=== PATIENT | female | born 1950 | race Hispanic/Latino ===

== ENCOUNTER 2019-01-18 10:51 | Inpatient (IN) | payer MEDICARE, OTHER ==
[~2019-01-18] VITALS: Ht 157.5 cm; Wt 90.4 kg
--- NOTE | 2019-01-18 11:32 | NUR ---
NURSE ATTEMPTED TO STRAIGHT CATH PT AND NOTICED PT HAS PROLAPSED UTERUS; MADE AWARE AND SAW PT HERSELF
[2019-01-18 11:56] LABS: BASOPHILS % 0.1 % (0.0-1.0); HEMATOCRIT 31.7 % (34.2-44.1); HEMOGLOBIN 10.4 g/dL (12.0-16.0); LYMPHOCYTES # (AUTO) 0.8 (1.0-3.2); LYMPHOCYTES % 7.3 % (18.0-39.1); MEAN CORPUSCULAR HEMOGLOBIN 29.7 pg (28-32); MEAN CORPUSCULAR HGB CONC 32.8 g/dL (31-35); MEAN CORPUSCULAR VOLUME 90.6 fL (81-99); MONOCYTES # (AUTO) 0.9 (0.2-0.8); MONOCYTES % 8.3 % (4.4-11.3); NEUTROPHILS # (AUTO) 8.8 (2.1-6.9); NEUTROPHILS % 83.1 % (38.7-80.0); PLATELET COUNT 186 x10e3/uL (140-360); RED CELL DISTRIBUTION WIDTH 14.3 % (11.7-14.4)
[2019-01-18 12:04] LABS: INR 1.27; PROTHROMBIN TIME 16.5 seconds (11.9-14.5)
[2019-01-18 12:11] LABS: ALBUMIN/GLOBULIN RATIO 0.5 (0.8-2.0); ANION GAP 17.3 mmol/L (8-16); CALCIUM 8.3 mg/dL (8.4-10.2); CREATININE, SERUM 3.54 mg/dL (0.57-1.11); POTASSIUM 3.3 mmol/L (3.5-5.1)
--- NOTE | 2019-01-18 13:14 | Diagnostic Imaging Report ---
EXAM: US ABDOMEN COMPLETE DATE: 01/18/2019 12:00 AM INDICATION: Cirrhosis COMPARISON: None TECHNIQUE: Transverse and longitudinal chamberlain scale and color doppler sonographic images of the upper abdomen were obtained. FINDINGS: There is no evidence of fluid or masses seen in the area of clinical concern in the right lower quadrant. LIVER 10.4 cm in the right midclavicular line. Coarse echotexture of the liver with nodular surface contour, no masses. SPLEEN 13.9 cm in maximum diameter. Normal echogenicity, no masses. GALLBLADDER 5 mm echogenic structure along the gallbladder wall without posterior acoustic shadowing, possibly a polyp. No gallbladder wall thickening, distension, stone, or pericholecystic fluid. NEgative reported sonographic Gracia's sign. Gallbladder wall measures 4 mm. BILE DUCTS No intra nor extra-hepatic biliary dilation. Common bile duct measures 4 mm. PANCREAS: Not well visualized due to overlying bowel gas. RIGHT KIDNEY: 11.2 cm Echogenicity: Normal Collecting System: No hydronephrosis Stones: None Cyst/Mass: None LEFT KIDNEY: 9.0 cm Echogenicity: Normal Collecting System: No hydronephrosis Stones: None Cyst/Mass: None VESSELS: Aorta: Visualized portions are within normal size limits Inferior Vena Cava: Visualized portions are normal Main Portal Vein: 1.1 cm, normal size with hepatopetal flow. FREE FLUID: Moderate volume ascites. IMPRESSION: Cirrhotic liver morphology. Moderate volume ascites. Gallbladder wall 5 mm echogenic structure likely represents a polyp. Signed by: Cora Blanc MD on 01/18/2019 1:10 PM
--- NOTE | 2019-01-18 13:30 | Diagnostic Imaging Report ---
EXAM: CT Abdomen and Pelvis WITHOUT intravenous contrast INDICATION: Abdominal pain COMPARISON: Abdominal ultrasound of the same day. TECHNIQUE: Abdomen and pelvis were scanned utilizing a multidetector helical scanner from the lung base to the pubic symphysis without administration of IV contrast. Coronal and sagittal reformations were obtained. IV CONTRAST: None ORAL CONTRAST: Water COMPLICATIONS: None RADIATION DOSE: Total DLP: 794.9 mGy*cm Dose modulation, iterative reconstruction, and/or weight based adjustment of the mA/kV was utilized to reduce the radiation dose to as low as reasonably achievable. FINDINGS: LOWER THORAX: Mild bibasilar dependent subsegmental atelectasis. Coronary artery atherosclerotic calcifications. HEPATOBILIARY: Cirrhotic liver morphology. No focal liver lesions. Hyperdense structure within the gallbladder likely corresponds to the finding on ultrasound of gallbladder wall polyp. No CT evidence of cholecystitis. SPLEEN: No splenomegaly. PANCREAS: No focal masses or ductal dilatation. ADRENALS: No adrenal nodules. KIDNEYS/URETERS: No hydronephrosis, stones, or solid mass lesions. PELVIC ORGANS/BLADDER: Unremarkable. PERITONEUM / RETROPERITONEUM: Moderate volume ascites. No free air. LYMPH NODES: No lymphadenopathy. VESSELS: Scattered atherosclerotic calcifications of the nonaneurysmal abdominal aorta and major branches. Extensive upper abdominal portosystemic varices, most notably with a large splenorenal shunt at the left upper abdomen. GI TRACT: Diverticulosis. No CT evidence of diverticulitis. No abnormal bowel wall thickening or bowel obstruction. BONES AND SOFT TISSUES: No acute osseous injury. No suspicious lytic or blastic lesions. There is diffuse anasarca. IMPRESSION: Hepatic cirrhosis and sequela of portal hypertension including extensive portosystemic varices and moderate volume ascites. Diffuse anasarca. Signed by: Cora Blanc MD on 01/18/2019 1:27 PM
[2019-01-18] MEDS ORDERED: MORPHINE SULFATE INJ 4 MG/ML INJ 1ML IV ONE (14:00)
[2019-01-18] MEDS ORDERED: ONDANSETRON HCL INJ 2MG/ML 2ML 2 MG/ML VIAL IV ONE (14:00)
--- NOTE | 2019-01-18 14:00 | NUR ---
paracentesis performed by dr gomez; nurse stayed in room to monitor pt and switch out bottles; pt states she is starting to feel relief and she is drained of fluids; vs stable throughout process
--- NOTE | 2019-01-18 14:52 | NUR ---
PARACENTESIS OUTPUT APPROX 4350 CC SENT TO LAB
--- OUTSIDE RECORDS SUMMARY | 2019-01-18 15:13 | XMS REPORT ---
Author Author [facility] Address Unknown Phone Unavailable Care Team Providers Care Ems Coordinator Name Role Phone ILAN RAZO Unavailable Unavailable Problems This patient has no known problems. Allergies, Adverse Reactions, Alerts This patient has no known allergies or adverse reactions. Medications This patient has no known medications. Results Test Description Test Time Test Comments Text Results Atomic Results Result Comments CT ABDOMEN/PELVIS WO 2019-01-18 13:20:00 [place] [address] Patient Name: EUSEBIO MARKHAM MR #: [id number] : 1950 Age/Sex: 68/F Req #: [id number] Adm Physician: Ordered by: ILAN RAZO DO Report #: [id number] Location: ER Room/Bed: Procedure: [id number] CT/CT ABDOMEN/PELVIS WO Exam Date: 01/18/19 Exam Time: 1250 REPORT STATUS: Signed EXAM: CT Abdomen and Pelvis WITHOUT intravenous cont rast INDICATION: Abdominal pain COMPARISON: Abdominal ultrasound of the same day. TECHNIQUE: Abdomen and pelvis were scanned utilizing a multidetector helical scanner from the lung base to the pubic symphysis without administration of IV contrast. Coronal and sagittal reformations were obtained. IV CONTRAST: None ORAL CONTRAST: Water COMPLICATIONS: None RADIATION DOSE: Total DLP: 794.9 mGy*cm Dose modulation, iterative reconstruction, and/or weight based adjustment of the mA/kV was utilized to reduce the radiation dose to as low as reasonably achievable. FINDINGS: LOWER THORAX: Mild bibasilar dependent subsegmental atelectasis. Coronary artery atherosclerotic calcifications. HEPATOBILIARY: Cirrhotic liver morphology. No focal liver lesions. Hyperdense structure within the gallbladder likely corresponds to the finding on ultrasound of gallbladder wall polyp. No CT evidence of cholecystitis. SPLEEN: No splenomegaly. PANCREAS: No focal masses or ductal dilatation. ADRENALS: No adrenal nodules. KIDNEYS/URETERS: No hydronephrosis, stones, or solid mass lesions. PELVIC ORGANS/BLADDER: Unremarkable. PERITONEUM / RETROPERITONEUM: Moderate volume ascites. No free air. LYMPH NODES: No lymphadenopathy. VESSELS: Scattered atherosclerotic calcifications of the nonaneurysmal abdominal aorta and major branches. Extensive upper abdominal portosystemic varices, most notably with a large splenorenal shunt at the left upper abdomen. GI TRACT: Diverticulosis. No CT evidence of diverticulitis. No abnormal bowel wall thickening or bowel obstruction. BONES AND SOFT TISSUES: No acute osseous injury. No suspicious lytic or blastic lesions. There is diffuse anasarca. IMPRESSION: Hepatic cirrhosis and sequela of portal hypertension including extensive portosystemic varices and moderate volume ascites. Diffuse anasarca. Signed by: Dang Martinez MD on 01/18/2019 1:27 PM Dictated By: DANG MARTINEZ MD [id number] Transcribed By: LOREE on 01/18/19 1327 COPY TO: ILAN RAZO DO ABDOMEN COMPLETE 2019-01-18 13:06:00 [place] [address] Patient Name: EUSEBIO MARKHAM MR #: [id number] : 1950 Age/Sex: 68/F Req #: [id number] Adm Physician: Ordered by: ILAN RAZO DO Report #: [id number] Location: Room/Bed: Procedure: [id number] US/US ABDOMEN COMPLETE Exam Date: 01/18/19 Exam Time: 1215 REPORT STATUS: Signed EXAM: US ABDOMEN COMPLETE DATE: 01/18/2019 12:00 AM INDICATION: Cirrhosis COMPARISON: None TECHNIQUE: Transverse and longitudinal chamberlain scale and color doppler sonographic images of the upper abdomen were obtained. FINDINGS: There is no evidence of fluid or masses seen in the area of clinical concern in the right lower quadrant. LIVER 10.4 cm in the right midclavicular line. Coarse echotexture of the liver with nodular surface contour, no masses. SPLEEN 13.9 cm in maximum diameter. Normal echogenicity, no masses. GALLBLADDER 5 mm echogenic structure along the gallbladder wall without posterior acoustic shadowing, possibly a polyp. No gallbladder wall thickening, distension, stone, or pericholecystic fluid. NEgative reported sonographic Gracia's sign. Gallbladder wall measures 4 mm. BILE DUCTS No intra nor extra-hepatic biliary dilation. Common bile duct measures 4 mm. PANCREAS: Not well visualized due to overlying bowel gas. RIGHT KIDNEY: 11.2 cm Echogenicity: Normal Collecting System: No hydronephrosis Stones: None Cyst/Mass: None LEFT KIDNEY: 9.0 cm Echogenicity: Normal Collecting System: No hydronephrosis Stones: None Cyst/Mass: None VESSELS: Aorta: Visualized portions are within normal size limits Inferior Vena Cava: Visualized portions are normal Main Portal Vein: 1.1 cm, normal size with hepatopetal flow. FREE FLUID: Moderate volume ascites. IMPRESSION: Cirrhotic liver morphology. Moderate volume ascites. Gallbladder wall 5 mm echogenic structure likely represents a polyp. Signed by: Dang palacios MD on 01/18/2019 1:10 PM Dictated By: DANG MARTINEZ MD 131 Transcribed By: LOREE on 01/18/19 1310 COPY TO: ILAN RAZO DO
--- NOTE | 2019-01-18 15:45 | NUR ---
Received patient via stretcher from ER. Accompanied by daughter. AAOX4 to time, person, place, situation. Respirations even and unlabored. Denies pain. Oriented patient to room. Instructed to use call light for assistance. Voiced understanding. Will continue to monitor
[2019-01-18 16:01] VITALS: BP 153/67
[2019-01-18 16:19] LABS: RBC,BODY FLUID 128 cells/uL; WBC,BODY FLUID 70 cells/uL
[2019-01-18 16:30] VITALS: BP 153/67
[2019-01-18 16:40] LABS: AMYLASE,BODY FLUID 18
[2019-01-18] MEDS ORDERED: RAYALDEE30 MCG PO (16:58)
[2019-01-18] MEDS ORDERED: PREDNISONE20 MG PO (16:58)
[2019-01-18] MEDS ORDERED: LEXAPRO10 MG PO (16:58)
[2019-01-18] MEDS ORDERED: POTASSIUM CHLO20 ME1 PO (16:58)
[2019-01-18] MEDS ORDERED: GABAPENTIN300 MG PO (16:58)
[2019-01-18] MEDS ORDERED: XIFAXAN550 MG PO (16:58)
[2019-01-18] MEDS ORDERED: VITAMIN D31000 UNIT PO (16:58)
[2019-01-18] MEDS ORDERED: FOSAMAX70 MG PO (16:58)
[2019-01-18] MEDS ORDERED: BROMFED PO (16:58)
[2019-01-18] MEDS ORDERED: SPIRONOLACTONE25 MG PO (16:58)
[2019-01-18] MEDS ORDERED: FUROSEMIDE40 MG PO (16:58)
[2019-01-18] MEDS ORDERED: AUGMENTIN 875-1 EACH PO (16:58)
[2019-01-18] MEDS ORDERED: LISINOPRIL10 MG PO (16:58)
[2019-01-18] MEDS ORDERED: DESLORATADINE5 M1 PO (16:58)
[2019-01-18] MEDS ORDERED: verapamil PO (16:58)
[2019-01-18] MEDS ORDERED: PROMETHAZINE 12.5MG/ NACL 0.9% 12.5 MG/50 ML BAG IV PRN (17:15)
[2019-01-18 17:22] LABS: LYMPHOCYTES,BODY FLUID 22 %; MONO/MACROPHG,BODY FLUID 2 %; NEUTROPHILS,BODY FLUID 3 %
[2019-01-18 17:29] LABS: BODY FLUID APPEARANCE SL.CLOUDY; BODY FLUID COLOR YELLOW; BODY FLUID TYPE PERITONEAL; OTHER CELLS,BODY FLUID 73 %
[2019-01-18] MEDS ORDERED: AMOXICILLIN/CLAVULANATE K 875 MG TAB PO SCH (17:30)
[2019-01-18] MEDS ORDERED: SODIUM CHLORIDE 0.9% 250ML 250 ML ONE (17:34)
[2019-01-18] MEDS: ALPRAZOLAM 0.25 MG TAB PO PRN (17:51)
[2019-01-18] MEDS: PROMETHAZINE 12.5MG/ NACL 0.9% 50 ML IV PRN (17:51)
[2019-01-18] MEDS: IBUPROFEN 400 MG TAB PO PRN (17:51)
[2019-01-18] MEDS: BROMFED PO SCH ×2 (17:52→20:29)
--- NOTE | 2019-01-18 19:20 | NUR ---
Report given to oncoming nurse of patient's status. Resting in bed. No s/s of acute distress noted. Family at bedside. Side rails upx2, call light within reach.
[2019-01-18 20:00] VITALS: BP 140/64
[2019-01-18] MEDS ORDERED: PNEUMOCOCCAL VACCINE POLYVALENT 23 MCG/0.5 ML VIAL IM SCH (20:00)
[2019-01-18 21:00] VITALS: BP 140/64
[2019-01-18] MEDS: GABAPENTIN 300 MG CAP PO SCH (21:00)
[2019-01-19] VITALS (7 sets, daily range): BP systolic 96–129; BP diastolic 50–60
[2019-01-19] MEDS: IBUPROFEN 400 MG TAB PO PRN (05:11)
[2019-01-19] MEDS: PROMETHAZINE 12.5MG/ NACL 0.9% 50 ML IV PRN ×2 (05:42→16:51)
--- NOTE | 2019-01-19 07:07 | NUR ---
pt alert resp even and unlabored a this time no distress noted, pt able to make needs known , family member at bedside. call light in reach, will cont to monitor.
[2019-01-19] MEDS ORDERED: SPIRONOLACTONE 25 MG TAB PO SCH (09:00)
[2019-01-19] MEDS: BROMFED PO SCH ×4 (09:00→21:00)
[2019-01-19] MEDS: CHOLECALCIFEROL 1,000 UNIT TAB PO SCH (09:00)
[2019-01-19] MEDS: VERAPAMIL HCL 120 MG TABSR PO SCH (09:00)
[2019-01-19] MEDS: POTASSIUM CHLORIDE 20 MEQ TAB CR PO SCH (09:00)
[2019-01-19] MEDS ORDERED: NON-FORMULARY MEDICATION (Desloratadine 5 MG) PO SCH (09:00)
[2019-01-19] MEDS: ESCITALOPRAM OXALATE 10 MG TAB PO SCH (09:00)
[2019-01-19] MEDS ORDERED: LISINOPRIL 10 MG TAB PO SCH (09:00)
[2019-01-19] MEDS ORDERED: VERAPAMIL 300 MG PO SCH (09:00)
[2019-01-19] MEDS: CALCIFEDIOL 30 MCG PO SCH (09:00)
[2019-01-19] MEDS: VERAPAMIL HCL 180 MG TBER PO SCH (09:00)
[2019-01-19] MEDS ORDERED: FUROSEMIDE 40 MG TAB PO SCH (09:00)
[2019-01-19] MEDS: LORATADINE 10 MG TAB PO SCH (09:00)
[2019-01-19] MEDS: RIFAXIMIN 550 MG TABLET PO SCH (09:00)
[2019-01-19] MEDS ORDERED: CHOLECALCIFEROL 1000 UNIT PO SCH (09:00)
[2019-01-19] MEDS: PREDNISONE 20 MG TAB PO SCH (09:00)
[2019-01-19] MEDS: HYDROMORPHONE 1MG/1ML INJ IV PRN ×2 (09:44→17:38)
[2019-01-19] MEDS: ONDANSETRON HCL INJ 2MG/ML 2ML 2 MG/ML VIAL IV PRN ×2 (09:44→17:38)
--- NOTE | 2019-01-19 10:05 | NUR ---
H&P cc: ascites needing drainage HPI: 68yoF, PCP , GI , with cirrhosis, now for drainage of ascites; underwent procedure, now recovering; Pt having abdominal pain and intractable N/V. PMH: cirrhosis, ascites, CKD4? due to DM, DM PShX: appendectomy allergies; see emr FH/SH; ; no cigs meds; see MAR ROS; no f/c/s/MATTHEWS/cp/sob/back pain/skin rash/diarrhea v/s revd PE tired appearing anicteric ns1s2 mod bs soft nd; mildly tender abdomen trace leg edema skin dry flat affect a&0x3; mina labs/meds; revd A/P: 68yoF Ascites Cirrhosis ESRD Intractable N/V PLAN s/p paracentesis IV abx prophylactically Antiemetics SCD D/c planning Leo Valera MD, PhD.
[2019-01-19] MEDS ORDERED: ULTRAM50 MG PO (10:08)
[2019-01-19] MEDS: CEFTRIAXONE SOD 1 GM/NS 50 ML 50 ML IV SCH (11:30)
--- NOTE | 2019-01-19 13:52 | Consultation ---
DATE OF CONSULTATION: 01/19/2019 Urology Consultation REASON FOR CONSULTATION: Prolapse. HISTORY OF PRESENT ILLNESS: Radha Guerrier is a 68-year-old woman with both stress and urge type urinary incontinence. She has never seen a urologist. The patient is admitted with nausea and vomiting, was found to have prolapse, urological consultation was sought. Prolapse was noted when an order to place a Claudio catheter was attempted to be performed and it sounds like a Claudio catheterization was not even attempted due to the panic from the prolapse. The patient has noted this prolapse for some time. The patient denies hematuria, current dysuria as well as history of urolithiasis. She has been prescribed antibiotic and [id number] Azo-Standard for recent urinary tract infection. PAST MEDICAL AND SURGICAL HISTORY: 1. Cirrhosis of unclear etiology, but possibly due to diabetic medications. 2. Status post appendectomy. 3. 2, para 2, by spontaneous vaginal delivery. 4. Diabetes mellitus. 5. Ascites. 6. Obesity. ALLERGIES: SHELLFISH DERIVED PRODUCTS. CURRENT MEDICATIONS: Please refer to the MAR. SOCIAL HISTORY: The patient denies smoking, ethanol, and drug use. She has supportive daughter at the bedside. 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 FAMILY HISTORY: Noncontributory to the active urological problems. REVIEW OF SYSTEMS: Discussed as above in history of present illness, past medical history, otherwise negative for all systems. PHYSICAL EXAMINATION: GENERAL: Very pleasant 68-year-old woman lying in bed, no apparent distress. She is with intermittent nausea and vomiting. The patient is afebrile. VITAL SIGNS: Currently stable. ABDOMEN: Soft. It is distended with ascites. It is not tender and is obese. GENITOURINARY: There is a grade 4 rectocele. There is a grade 2 cystocele. There is urethral hypermobility. There is evidence of uterine prolapse and there was atrophic (senile) vaginitis. For the remaining physical examination systems please refer to the admission history and physical in the chart and the ERT sheet. LABORATORY STUDIES: Ascites fluid is pending for culture. The patient's white blood cell count is 10,610, hemoglobin 10.4, platelets of 186,000. The patient's creatinine is elevated at 3.54. Her calcium is low at 8.3. Lactic acid is elevated 2.2. Potassium is low at 3.3. No urinalysis is done. ASSESSMENT: 1. Mixed type urinary incontinence. 2. Urinary tract infection by recent history. 3. Obesity. 4. Nausea and vomiting. 5. Grade 4 rectocele. 6. Grade 2 cystocele. 7. Urethral hypermobility. 8. Uterine prolapse. 9. Vaginal wall atrophy. 10. Anemia. 11. Presumably chronic renal insufficiency with possible acute exacerbation. 12. Hypokalemia. 13. Hypocalcemia. PLAN: 1. I defer the electrolyte abnormalities to the remote computer terminal operator consulted. 2. Defer the hematological abnormalities to the primary physician. 3. I instructed the patient's nurse, who was present at the examination that she may proceed with placing a Claudio catheter. There was not a problem with just pushing the vaginal wall in, in order to obtain a Claudio catheterization. 4. Once the patient's Claudio is in, the urinalysis and the urine culture can be obtained. 5. Gynecological consultation is required to manage the patient's rectocele and prolapse. The cystocele is relatively minor and may not need to be repaired at this time. 6. We can workup the patient's urinary incontinence as an outpatient. Thank you much for involving us in the care of your patient. We will be happy to follow her along with you as well as an outpatient. Shashi Fleming MD [place]/MODL /[id number] cc: Praveen Ahuja MD
--- NOTE | 2019-01-19 14:43 | Consultation ---
DATE OF CONSULTATION: 01/19/2019 Nephrology Consultation REASON FOR CONSULTATION: Acute on chronic kidney injury. HISTORY OF PRESENT ILLNESS: Radha Guerrier is a 68-year-old woman, who was admitted last night with increasing abdominal ascites causing pain and perhaps difficulty breathing. She did undergo peritoneal tap this morning with removal of 4 L with some symptomatic relief. Her admission labs showed elevated creatinine of 3.5, compared to 1.7 in September this year. She is known to have chronic kidney disease, perhaps related to her longstanding type 2 diabetes mellitus and hypertension. She has been followed intermittently by lease analyst, including a visit with Dr. Caldwell earlier this week. At the time of my interview, the patient is feeling better since the peritoneal tap. Denies any shortness of breath, but does admit to some ongoing nausea. Denies vomiting or diarrhea. Abdominal pain from the ascites is better. She also has chronic leg edema and is on diuretics for it. She had been taking some NSAIDs in the past, but denies taking it for the last month, mainly out of concern for her liver. She has seen the gastroenterologists, who described her cirrhosis as cryptogenic. PAST MEDICAL HISTORY: As above. SOCIAL HISTORY: No alcohol or tobacco use. CURRENT MEDICATIONS: Reviewed in MAY. Notably, she was on Aldactone, prednisone, Lasix and ibuprofen p.r.n. Also, on verapamil and lisinopril. REVIEW OF SYSTEMS: Negative, except as per HPI above. PHYSICAL EXAMINATION: GENERAL: The patient is sitting up in bed eating lunch at this time. VITAL SIGNS: Blood pressure 97/50, pulse 85 per minute. She is afebrile. SKIN: Normal turgor. HEENT: Normocephalic, atraumatic head. Oral mucosa normal. No jaundice appreciated. NECK: Supple without jugular venous distention. CHEST: Auscultation reveals good breath sounds bilaterally without wheezing or crepitations. CARDIOVASCULAR: S1, S2 without murmur, rub, or gallop. ABDOMEN: Soft, distended with ascites but nontender. EXTREMITIES: Both lower legs show 2 to 3+ pitting edema. NEUROLOGIC: Alert and oriented x3. No obvious focal deficits. LABORATORY DATA: Serum chemistries from last night show a sodium of 140, potassium 3.3, chloride 108, bicarb 18, BUN 50, creatinine 3.5, glucose 132, lactic acid 2.2, calcium total 8.3 with a serum albumin of 2, globulin 4, hemoglobin 10.4, white count 10.6, normal platelet count. IMPRESSION: 1. Acute kidney injury, probably related to worsening of ascites and diuretic use. Possible implication of recent use of NSAIDs. 2. Chronic kidney disease, described at stage 3 and related to diabetic nephropathy since daughter describes her having had proteinuria. 3. Hypertension by history, currently blood pressure on the low side with hypo. 4. Hypoalbuminemia, secondary to liver disease. 5. Anemia, secondary to chronic kidney disease. RECOMMENDATIONS: Given the apparent worsening in her renal function, I have discontinued ibuprofen. Also, to preserve intravascular volume, we will hold diuretics until renal function stabilizes. We will also hold lisinopril. Avoid all known nephrotoxins, specially NSAIDs, aminoglycoside antibiotics, and IV iodinated contrast as possible. Trend renal function daily. Hypokalemia has already been replaced by mouth. Her ultrasound was done yesterday and shows no hydronephrosis. I will order urinalysis and protein quantification. Thank you very much for this consultation. We will follow with you and recommend as needed. MD HOMER Mcbride/DAIJA /[id number]
--- NOTE | 2019-01-19 14:43 | NUR ---
ortega placed pt tolerated well, urine light michelle, no odor, 120, cc/ of urine out.
--- NOTE | 2019-01-19 14:54 | NUR ---
ua sent to lab.
--- NOTE | 2019-01-19 15:11 | NUR ---
Nutrition Screen Note RD Recommendation for Physician: Continue diet as ordered Plan of Care: RD following, monitoring for tolerance and adequacy Nutrition reason for involvement: Nutrition Risk Trigger - MST - ascites, liver cirrhosis Primary Diagnose(s): Ascites, liver cirrhosis PMH: Liver cirrhosis, HTN, T2DM, CKD stage 3, Anemia, Ht:62.5 in Wt:196lb BMI:35.3 kg/m2 IBW:112.5lb +/-10% RD Assessment: (01/19/2019) Chart reviewed. Labs and meds reviewed. Initial encounter with patient. Pt only able to eat small meals due to ascites. Pt with vomiting after she eats too much. Pt denies any difficulty chewing or swallowing. Current Diet: Cardiac Malnutrition Evaluation (01/19/2019) The patient does not meet criteria for a specified degree of malnutrition at this time. Will re-evaluate at follow-up as appropriate. Diet Education Needs Assessment: Diet education indicated, Learner(s): Pt, daughter Barriers: None Cultural/Language Modifications: none Readiness: Willing Method: Verbal Topics: Small frequent meals Understanding/Compliance: Expect compliance Nutrition Care Level: Low Signed: Hardy Gil RD, LD, [facility]
[2019-01-19 15:22] LABS: BILIRUBIN,URINE NEGATIVE (NEGATIVE); COLOR,URINE YELLOW (YELLOW); KETONES,URINE NEGATIVE (NEGATIVE); LEUKOCYTE ESTERASE ,URINE NEGATIVE (NEGATIVE); NITRITE,URINE NEGATIVE (NEGATIVE); PROTEIN,URINE DIPSTICK 2+ (NEGATIVE); URINE UROBILINOGEN 0.2 mg/dL (0.2 - 1)
[2019-01-19 15:23] LABS: CLARITY,URINE SL CLOUDY (CLEAR)
[2019-01-19 15:30] LABS: AMORPHOUS SEDIMENT,URINE FEW (FEW); BACTERIA,URINE FEW /HPF; EPITHELIAL CELLS,URINE FEW /LPF; MUCUS,URINE FEW (RARE)
[2019-01-19 17:35] LABS: CREATININE,URINE RANDOM 145.58 mg/dL (47-110)
[2019-01-19 18:28] LABS: TOTAL PROTEIN, URINE 341.9 mg/dL (1-14)
--- NOTE | 2019-01-19 18:39 | NUR ---
report given to oncoming nurse, pt transferred to room 104.
--- NOTE | 2019-01-19 18:40 | NUR ---
PT ARRIVED VIA WC, WITH STANDBY ASSIST OF 2 PEOPLE, PT STOOD AND TRANSFERRED TO BED, 2L NC IN PLACE, TELE IN PLACE, ORIENTED TO ROOM AND CALL LIGHT SYSTEM, CALL LIGHT WITHIN REACH, FAMILY AT SIDE
--- NOTE | 2019-01-19 19:00 | NUR ---
RECEIVED PATIENT IN BEDSIDE REPORT. PATIENT RESTING IN BED AT THIS TIME. A&OX3. O2 @ 2L VIA NC. BAKER DRAINING CLEAR YELLOW URINE TO GRAVITY. NO PAIN REPORTED. NO S&S OF DISTRESS NOTED. BED LOCKED IN LOWEST POSITION, SIDE RAILS UPX2, CALL LIGHT IN REACH.
[2019-01-19] MEDS: GABAPENTIN 300 MG CAP PO SCH (21:00)
[2019-01-20] VITALS (8 sets, daily range): BP systolic 90–105; BP diastolic 48–60
[2019-01-20 06:19] LABS: ANION GAP 15.1 mmol/L (8-16); CALCIUM 7.8 mg/dL (8.4-10.2); CREATININE, SERUM 4.57 mg/dL (0.57-1.11); POTASSIUM 4.1 mmol/L (3.5-5.1)
--- NOTE | 2019-01-20 07:30 | NUR ---
Received patient this morning, a/ox3, in bed and call light within reach, no distress, will monitor.
--- NOTE | 2019-01-20 07:59 | NUR ---
IM- progress note O/N no events ROS; no f/c/s/MATTHEWS/cp/sob/back pain/skin rash/diarrhea v/s revd PE tired appearing anicteric ns1s2 mod bs soft nd; mildly tender abdomen trace leg edema skin dry flat affect a&0x3; mina labs/meds; revd A/P: 68yoF Ascites Cirrhosis ESRD Intractable N/V PLAN s/p paracentesis IV abx prophylactically Antiemetics SCD D/c planning CKD3 due to DM2; now with MELITA; Obesity BMI 35.3. check hba1c/lipids. Leo Valera MD, PhD.
[2019-01-20] MEDS: CALCIFEDIOL 30 MCG PO SCH (08:59)
[2019-01-20] MEDS: VERAPAMIL HCL 180 MG TBER PO SCH (09:00)
[2019-01-20] MEDS: BROMFED PO SCH ×4 (09:00→21:00)
[2019-01-20] MEDS: RIFAXIMIN 550 MG TABLET PO SCH (09:01)
[2019-01-20] MEDS: LORATADINE 10 MG TAB PO SCH (09:01)
[2019-01-20] MEDS: POTASSIUM CHLORIDE 20 MEQ TAB CR PO SCH (09:01)
[2019-01-20] MEDS: ESCITALOPRAM OXALATE 10 MG TAB PO SCH (09:01)
[2019-01-20] MEDS: PREDNISONE 20 MG TAB PO SCH (09:01)
[2019-01-20] MEDS: CHOLECALCIFEROL 1,000 UNIT TAB PO SCH (09:01)
[2019-01-20] MEDS: VERAPAMIL HCL 120 MG TABSR PO SCH (09:02)
[2019-01-20] MEDS ORDERED: SODIUM CHLORIDE 0.9% 250ML 250 ML ONE (10:59)
[2019-01-20] MEDS: CEFTRIAXONE SOD 1 GM/NS 50 ML 50 ML IV SCH (11:05)
--- NOTE | 2019-01-20 14:15 | NUR ---
Patient's daughter questioning why patient is DNR, orders were put in during admission by ER physician and patient cannot remember is she said she wanted to be DNR or not but that she wished to be DNR but her is upset. Dr. Valera notified of patient's wishes and no response yet.
--- NOTE | 2019-01-20 15:44 | NUR ---
Patient OOB and ambulated in the room, rounds by Dr. Fleming, Claudio in place with no urine output, patient in kidney failure with GFR 9 and Creatinine>4, nephrology on the case and following, reading of bladder scan of 300cc could be a false reading due to abdominal fluid related to ascites. Report given to Kristel at this time.
--- NOTE | 2019-01-20 15:54 | NUR ---
Orders per Dr. Valera to D/C DNAR status and make patient full code
[2019-01-20] MEDS ORDERED: ALBUMIN 25% 25GM 100ML 0.25 GM/ML BTL IV SCH (17:00)
[2019-01-20] MEDS ORDERED: ALBUMIN 25% 25GM 100ML 0.25 GM/ML BTL IV ONE (17:30)
--- NOTE | 2019-01-20 19:00 | NUR ---
Received report from previous nurse. Call light within reach. Patient in bed. Daughter and granddaughter at bedside.
[2019-01-20] MEDS: FUROSEMIDE INJ 10 MG/ML 4 ML VIAL IV SCH (20:40)
[2019-01-20] MEDS: GABAPENTIN 300 MG CAP PO SCH (20:40)
[2019-01-20] MEDS: OCTREOTIDE ACETATE 0.1 MG/ML 100MCG AMP SQ SCH (20:40)
--- NOTE | 2019-01-20 22:25 | NUR ---
Called Dr. Caldwell office and talked to Dr. Manuel because the patient has only 5 cc in Ortega bag after a hour of albumin and 40 mg Lasix. Also, mentioned to the doctor that she is now a full code. Dr. Manuel said to call the urologist and give 80 mg lasix IV now, ortega might not be in the right spot, and she can have the full feeling because of the ascites
[2019-01-20] MEDS ORDERED: FUROSEMIDE INJ 10 MG/ML 4 ML VIAL IV ONE (22:30)
--- NOTE | 2019-01-20 23:10 | NUR ---
Called Dr. Fleming's office at [address] Manuel said to call the urologist about the patient not having any urine in the Claudio and the bladder scan showed [address] Fleming called back at 2310 and he said to irrigate and aspirate the Claudio and see if anything comes out. Dr. Fleming also said to do a CT abdomen/pelvis without contrast to rule out hydronephrosis. If it is not hydronephrosis, he said then it is Renal.
[2019-01-21] VITALS (14 sets, daily range): BP systolic 95–127; BP diastolic 44–61
[2019-01-21 00:23] LABS: HEMATOCRIT 31.6 % (34.2-44.1); HEMOGLOBIN 10.4 g/dL (12.0-16.0); LYMPHOCYTES # (AUTO) 0.4 (1.0-3.2); LYMPHOCYTES % 3.5 % (18.0-39.1); MEAN CORPUSCULAR HEMOGLOBIN 29.5 pg (28-32); MEAN CORPUSCULAR HGB CONC 32.9 g/dL (31-35); MEAN CORPUSCULAR VOLUME 89.8 fL (81-99); MONOCYTES # (AUTO) 0.5 (0.2-0.8); NEUTROPHILS # (AUTO) 10.3 (2.1-6.9); PLATELET COUNT 116 x10e3/uL (140-360); RED BLOOD COUNT 3.52 x10e6/uL (3.6-5.1); RED CELL DISTRIBUTION WIDTH 14.5 % (11.7-14.4)
[2019-01-21 00:37] LABS: ALBUMIN 1.7 g/dL (3.5-5.0); ALBUMIN/GLOBULIN RATIO 0.6 (0.8-2.0); ANION GAP 17.5 mmol/L (8-16); CALCIUM 8.2 mg/dL (8.4-10.2); CREATININE, SERUM 5.34 mg/dL (0.57-1.11); MAGNESIUM 1.6 MG/DL (1.3-2.1); POTASSIUM 4.5 mmol/L (3.5-5.1)
--- NOTE | 2019-01-21 01:30 | NUR ---
Patient left via stretcher for CT of abdomen/pelvis without contrast.
--- NOTE | 2019-01-21 01:55 | NUR ---
Patient arrived back from CT on a stretcher
--- NOTE | 2019-01-21 02:50 | Diagnostic Imaging Report ---
EXAM: CT Abdomen and Pelvis WITHOUT intravenous contrast INDICATION: Low urine output. COMPARISON: CT abdomen/pelvis 01/18/2019. TECHNIQUE: Abdomen and pelvis were scanned utilizing a multidetector helical scanner from the lung base to the pubic symphysis without administration of IV contrast. Lack of IV contrast limits evaluation of visceral and vascular structures. Coronal and sagittal reformations were obtained. IV CONTRAST: None ORAL CONTRAST: None COMPLICATIONS: None RADIATION DOSE: Total DLP: 769 mGy*cm Dose modulation, iterative reconstruction, and/or weight based adjustment of the mA/kV was utilized to reduce the radiation dose to as low as reasonably achievable. FINDINGS: LOWER THORAX: Linear and patchy subsegmental atelectasis at the lung bases. Coronary artery atherosclerotic calcifications. HEPATOBILIARY: Cirrhotic liver morphology. No evidence of focal liver lesions. Hyperdense structure within the gallbladder likely corresponds to the finding on ultrasound of gallbladder wall polyp. No CT evidence of cholecystitis. SPLEEN: No splenomegaly. PANCREAS: No evidence of focal masses or ductal dilatation. ADRENALS: No adrenal nodules. KIDNEYS/URETERS: No hydronephrosis, stones, or solid mass lesions. A 0.4 cm hyperdense lesion in the left inferior pole is too small to characterize, but may represent hemorrhagic cyst. PELVIC ORGANS/BLADDER: Mostly decompressed. Claudio catheter is present within the bladder with some intraluminal air. PERITONEUM / RETROPERITONEUM: Moderate volume ascites. No free air. LYMPH NODES: No lymphadenopathy. VESSELS: Scattered atherosclerotic calcifications of the nonaneurysmal abdominal aorta and major branches. Again noted are extensive upper abdominal portosystemic varices, with a large splenorenal shunt. GI TRACT: Diverticulosis without CT evidence of diverticulitis. Mildly thick-walled jejunal loops may be secondary to underlying cirrhosis. No evidence of bowel obstruction. BONES AND SOFT TISSUES: No acute osseous injury. No suspicious lytic or blastic lesions. There is diffuse anasarca. IMPRESSION: No evidence of hydronephrosis as clinically queried. The bladder is mostly decompressed with a Claudio catheter in place. Hepatic cirrhosis and sequela of portal hypertension including extensive portosystemic varices and moderate volume ascites. Diffuse anasarca. Signed by: Dr. Lc Franz MD on 01/21/2019 2:46 AM
--- NOTE | 2019-01-21 03:20 | NUR ---
Called and talked to Dr. Manuel about the results of CT of abdomen/pelvis without contrast, 80 mg of Lasix was given, and that Dr. Fleming said to irrigate and aspirate and do the CT of abdomen/pelvis and if the results show no hydronephrosis then it is renal. Mentioned to Dr. Manuel that when we irrigated and aspirated as told, we only aspirated what was irrigated. Dr. Manuel was also told the lab results (potassium, BUN, and creatinine) of the patient. Dr. Manuel said the patient would need dialysis and I told the Dr she is not a dialysis patient. Dr. Manuel said Dr. Caldwell will see the patient today and decide what to do.
[2019-01-21 05:20] LABS: HEMATOCRIT 27.9 % (34.2-44.1); HEMOGLOBIN 9.2 g/dL (12.0-16.0); LYMPHOCYTES # (AUTO) 0.4 (1.0-3.2); MEAN CORPUSCULAR HEMOGLOBIN 29.6 pg (28-32); MEAN CORPUSCULAR VOLUME 89.7 fL (81-99); MONOCYTES # (AUTO) 0.5 (0.2-0.8); MONOCYTES % 5.2 % (4.4-11.3); NEUTROPHILS # (AUTO) 9.5 (2.1-6.9); NEUTROPHILS % 90.2 % (38.7-80.0); PLATELET COUNT 103 x10e3/uL (140-360); RED BLOOD COUNT 3.11 x10e6/uL (3.6-5.1); RED CELL DISTRIBUTION WIDTH 14.6 % (11.7-14.4)
[2019-01-21 05:46] LABS: ALBUMIN 1.4 g/dL (3.5-5.0); ALBUMIN/GLOBULIN RATIO 0.6 (0.8-2.0); ANION GAP 14.5 mmol/L (8-16); CALCIUM 7.9 mg/dL (8.4-10.2); CREATININE, SERUM 5.31 mg/dL (0.57-1.11); POTASSIUM 4.5 mmol/L (3.5-5.1)
--- NOTE | 2019-01-21 06:56 | NUR ---
Received patient lying in bed with eyes closed. Respiration even and unlabored without SOB. Call light in reach.
--- NOTE | 2019-01-21 07:18 | NUR ---
GAVE REPORT TO CANDIDA DEL REAL. CALL LIGHT WITHIN REACH. PATIENT IN BED Addendum: 01/21/19 at 0719 by Concepcion Chacko RN PATIENT ASLEEP IN BED
[2019-01-21] MEDS: FUROSEMIDE INJ 10 MG/ML 4 ML VIAL IV SCH (08:13)
[2019-01-21] MEDS: BROMFED PO SCH ×4 (08:14→21:02)
[2019-01-21] MEDS: CALCIFEDIOL 30 MCG PO SCH (08:14)
[2019-01-21] MEDS: RIFAXIMIN 550 MG TABLET PO SCH (08:15)
[2019-01-21] MEDS: POTASSIUM CHLORIDE 20 MEQ TAB CR PO SCH (08:15)
[2019-01-21] MEDS: CHOLECALCIFEROL 1,000 UNIT TAB PO SCH (08:15)
[2019-01-21] MEDS: OCTREOTIDE ACETATE 0.1 MG/ML 100MCG AMP SQ SCH ×3 (08:15→21:00)
[2019-01-21] MEDS: ESCITALOPRAM OXALATE 10 MG TAB PO SCH (08:15)
[2019-01-21] MEDS: PREDNISONE 20 MG TAB PO SCH (08:15)
[2019-01-21] MEDS: LORATADINE 10 MG TAB PO SCH (08:42)
[2019-01-21] MEDS: MIDODRINE 2.5 MG TAB PO SCH ×4 (08:42→15:57)
[2019-01-21] MEDS ORDERED: METHYLPREDNISOLONE SOD SUCC 1,000 MG/8 ML VIAL IV SCH (09:45)
--- NOTE | 2019-01-21 10:11 | NUR ---
Notified [facility] about the scheduled HD today for the patient.
--- NOTE | 2019-01-21 10:33 | Progress Note ---
DATE: 01/21/2019 Renal Progress Note SUBJECTIVE: The patient is followed for acute kidney injury on chronic kidney disease stage 3, the patient has had decompensation over the last several days. She was recently seen in clinic earlier last week, where she had anasarca. She was asked to take increased dose of Lasix as well as spironolactone for her increased lower extremity edema. She also did have proteinuria, although in the hospital here in [facility], it is in nephrotic range. Although with a profoundly low albumin of 1.4 one would be concerned about nephrotic range proteinuria, nephrotic syndrome. The patient also has hepatic vascular congestion as well as ascites and signs of liver disease. Unclear cause for liver disease. Liver function tests after this morning are within range. The patient continues to have worsening kidney function. Creatinine is slightly better today, but it is quite a bit above her baseline at 5.3. The patient also has been albeit anuric. The patient's blood pressure is in the high 90s mmHg systolic BP. Over the weekend, she was started on subcu octreotide, midodrine, and IV albumin infusions. Currently, has at least 3 to 4+ pitting edema over the lower extremities. She has profound ascites. She is not overtly short of breath. Case has been discussed with her daughter as well at bedside. OBJECTIVE: VITAL SIGNS: Currently, last blood pressure 95/48, 95% O2 sats on room air, 87 pulse, and 16 respirations. LUNGS: Clear to auscultation bilaterally. CARDIOVASCULAR: S1, S2. No rub. ABDOMEN: Soft, ascitic, positive bowel sounds. Difficult to assess organomegaly. EXTREMITIES: Evidence of 3 to 4+ pitting edema of lower extremities. LABORATORY: Workup today H and H are 9.7 and 27.9, white count of 10.5, and platelet count of 103. Chemistry is 135 sodium, 4.5 potassium, 108 chloride, carbon dioxide 17, BUN is 72, creatinine 5.3, calcium is 7.9, albumin 1.4. Total protein is low at 3.9, globulin is at 2.5. Liver function tests are actually within range this morning. IMPRESSION AND PLAN: 1. Acute kidney injury on chronic kidney disease, stage 3, at baseline. She has had chronic kidney disease, stage 3. However, I am concerned with acute further decompensation with profoundly low albumin and anasarca, that there may be a component here of a multifactorial etiology rather than the patient just having pre-renal state versus ATN. I would be concerned with very profoundly low albumin as well as low protein, but a normal globulin fraction would be concerned about paraproteinemia. Would do further workup at this point to get a serum protein electrophoresis, urine protein electrophoresis. I would also recommend to rule out causes for liver cirrhosis. The patient's liver function tests are actually within range now. However, would recommend to check hepatitis serology if it has not already been checked. With worsening kidney function, would be concerned about membranoproliferative glomerulonephritis, there may also be a concern for a profoundly nephrotic syndrome such as membranous nephropathy. Would entertain kidney biopsy, however, at this time, the patient would benefit from acute urgent dialysis for profound fluid overload. I would get Interventional Radiology to place a temporary dialysis catheter. We will initiate acute temporary hemodialysis and monitor progress very closely. Once the patient is more stabilized, we will also do a kidney biopsy by Radiology through ultrasound guidance. Differential would include possibility such as acute interstitial nephritis since the patient was recently on antibiotic. The patient does have leukocytes in the urine as well as some microscopic hematuria, which would fit in line with both acute interstitial nephritis, but also a glomerulonephritic etiology. Would do serological workup as well to rule out any possibility of systemic lupus erythematosus nephritis. We will do get mjqg-hxzrwg-kjjdnfgt DNA antibodies, C3, C4 complement factors and will make further recommendations. We will also await results from a preliminary kidney biopsy and empirically start the patient on IV steroids pulse for 3 days and then monitor progress. 2. The etiology is not completely certain for acute kidney injury, but she will benefit from acute dialysis for now and also I believe she will benefit from a kidney biopsy, especially since there may be potentially a diagnosis that is potentially treatable with medication. 3. Hypotension. We will hold all blood pressure lowering medications to avoid further worsening of kidney function. Continue the subcu octreotide, midodrine, and IV albumin for now to allow improvement in the patient's blood pressure. 4. Anemia of chronic disease, stable H and H at present. No acute drop in hemoglobin and hematocrit present. 5. Metabolic acidosis from acute kidney injury on chronic kidney disease, which should correct with dialysis. We will not put the patient on any fluids with bicarb at this time since the patient has profound anasarca at this time already. MD DAMIAN Johnson/DAIJA /[id number]
[2019-01-21] MEDS ORDERED: METHYLPREDNISOLONE SOD SUCC 500 MG in SODIUM CHLORIDE 0.9% 100 ML IV ONE (11:00)
[2019-01-21] MEDS: CEFTRIAXONE SOD 1 GM/NS 50 ML 50 ML IV SCH (12:39)
--- NOTE | 2019-01-21 13:18 | NUR ---
IM-progress note O/N no events IM- progress note O/N no events ROS; no f/c/s/MATTHEWS/cp/sob/back pain/skin rash/diarrhea v/s revd PE tired appearing anicteric ns1s2 mod bs soft nd; mildly tender abdomen trace leg edema skin dry flat affect a&0x3; mina labs/meds; revd A/P: 68yoF Ascites Cirrhosis ESRD Intractable N/V PLAN s/p paracentesis IV abx prophylactically Antiemetics SCD D/c planning CKD3 due to DM2; now with MELITA; Obesity BMI 35.3. check hba1c/lipids. 01/21 f/u studies; appreciate nephrology recs. Leo Valera MD, PhD.
--- NOTE | 2019-01-21 13:42 | NUR ---
spoke to dr. ureña about POC. Per MD, he would like nephrology's input. Brandi ARAGON spoke to Dr. Caldwell, and patient will be transferred to ICU
--- NOTE | 2019-01-21 13:47 | NUR ---
Call placed to Dr. Caldwell and per Dr. Valera he would like Dr. Rahman's recommendations on if patient should be tranferred to ICU. Dr. Caldwell agreed since her BP is low and she has no urine output. Patient needs closer monitoring and higher level of care at this point
[2019-01-21] MEDS ORDERED: LIDOCAINE HCL 1% LOCAL INJ 20 ML VIAL ONE (14:57)
--- NOTE | 2019-01-21 15:15 | NUR ---
Report given to Cleopatra in ICU. Patient is to transfer to room 192 in ICU as ordered. Daughter notified.
--- NOTE | 2019-01-21 16:00 | NUR ---
Per Dr. Aura CASTANEDA Trialysis ok to use. Order in chart.
--- NOTE | 2019-01-21 16:20 | Diagnostic Imaging Report ---
Nontunneled dialysis catheter placement, 01/21/2019. History: Acute renal failure. Comparison: None available. Director Of Sustainability Programs: Dr. Robison. Medication: 5 cc of 1% lidocaine without epinephrine. Conscious sedation: None. EBL: < 2 cc. Specimen: None. Fluoroscopy time: 0.12 minutes. Fluoroscopy dose: 1.7 mGy (ERVIN) Technique: After informed consent and timeout procedure, the access site was prepped and draped with the standard maximal sterile barrier technique. Ultrasound images demonstrated vessel patency. Images were documented within PACS. The skin was anesthetized with lidocaine. The right internal jugular vein was accessed using a micropuncture set with ultrasound guidance. A 0.035-in. wire was advanced through the micropuncture sheath into the vein. The wire was advanced through the atrium into the IVC using fluoroscopic guidance. The tract was dilated. A 13 Setswana 15 cm triple-lumen Trialysis catheter was advanced over the wire into the vessel. The catheter was secured with suture. Dressing was applied. The patient tolerated the procedure well without evidence of complication. Postprocedure image demonstrates the line to terminate near the cavoatrial junction. IMPRESSION: Successful nontunneled dialysis catheter placement with ultrasound and fluoroscopic guidance guidance. Catheter is ready for immediate use. Signed by: Fritz Robison on 01/21/2019 4:17 PM
[2019-01-21] MEDS ORDERED: ALBUMIN 25% 12.5GM 0.25 GM/ML BTL IV PRN (16:30)
[2019-01-21] MEDS ORDERED: MANNITOL 25% 12.5GM/50 ML VIAL IV PRN (16:30)
[2019-01-21] MEDS ORDERED: SODIUM CHLORIDE 0.9% 250ML 500 ML IV PRN (16:30)
[2019-01-21] MEDS ORDERED: SODIUM CHLORIDE 0.9% 1000ML 2,000 ML IV PRN (16:30)
[2019-01-21] MEDS ORDERED: HEPARIN SOD (PORCINE) 1000 UNIT/ML SDV IV PRN (16:30)
--- NOTE | 2019-01-21 17:19 | NUR ---
Patient came to ICU from Interventional Radiology post RIJ Trialysis insertion. [facility] contacted for dialysis. Dr. Caldwell contacted to clarify diet order. gave orders for NPO at midnight, but patient can have renal diabetic tray for dinner. Will continue to monitor the patient. health inspector food at bedside performing dialysis. Patient has had no urine output in Claudio catheter since arrival to ICU and right lower leg brown discoloration noted on skin assessment.
--- NOTE | 2019-01-21 19:08 | NUR ---
1L removed during dialysis
[2019-01-21] MEDS: GABAPENTIN 300 MG CAP PO SCH (21:00)
[2019-01-21] MEDS: ALPRAZOLAM 0.25 MG TAB PO PRN (21:00)
[2019-01-22] VITALS (29 sets, daily range): BP systolic 96–131; BP diastolic 46–108
[2019-01-22 04:54] LABS: BASOPHILS % 0.1 % (0.0-1.0); HEMATOCRIT 27.7 % (34.2-44.1); HEMOGLOBIN 9.3 g/dL (12.0-16.0); LYMPHOCYTES # (AUTO) 0.2 (1.0-3.2); MEAN CORPUSCULAR HEMOGLOBIN 30.1 pg (28-32); MEAN CORPUSCULAR HGB CONC 33.6 g/dL (31-35); MEAN CORPUSCULAR VOLUME 89.6 fL (81-99); MONOCYTES # (AUTO) 0.2 (0.2-0.8); MONOCYTES % 2.1 % (4.4-11.3); NEUTROPHILS # (AUTO) 7.6 (2.1-6.9); NEUTROPHILS % 94.2 % (38.7-80.0); PLATELET COUNT 100 x10e3/uL (140-360); RED BLOOD COUNT 3.09 x10e6/uL (3.6-5.1); RED CELL DISTRIBUTION WIDTH 14.6 % (11.7-14.4)
[2019-01-22 05:19] LABS: ALBUMIN 1.8 g/dL (3.5-5.0); BILIRUBIN,DIRECT 0.6 mg/dL (0.0-0.5)
[2019-01-22 05:35] LABS: ALBUMIN 1.8 g/dL (3.5-5.0); ALBUMIN/GLOBULIN RATIO 0.7 (0.8-2.0); ANION GAP 16.7 mmol/L (8-16); CREATININE, SERUM 4.77 mg/dL (0.57-1.11); POTASSIUM 4.7 mmol/L (3.5-5.1)
[2019-01-22 05:52] LABS: MAGNESIUM 1.7 MG/DL (1.3-2.1); PHOSPHORUS 6.7 MG/DL (2.3-4.7)
[2019-01-22 07:08] LABS: PLATELET ESTIMATE MODERATELY DECREASED; PLATELET MORPHOLOGY COMMENT FEW LARGE; RBC MORPHOLOGY COMMENT NORMAL
[2019-01-22] MEDS: MIDODRINE 2.5 MG TAB PO SCH (08:00)
[2019-01-22] MEDS: OCTREOTIDE ACETATE 0.1 MG/ML 100MCG AMP SQ SCH (08:02)
[2019-01-22 08:38] LABS: INR 1.51; PROTHROMBIN TIME 18.8 seconds (11.9-14.5)
[2019-01-22] MEDS: ESCITALOPRAM OXALATE 10 MG TAB PO SCH (08:58)
[2019-01-22] MEDS: RIFAXIMIN 550 MG TABLET PO SCH (08:58)
[2019-01-22] MEDS: LORATADINE 10 MG TAB PO SCH (08:59)
[2019-01-22] MEDS: BROMFED PO SCH ×4 (09:00→20:30)
[2019-01-22] MEDS: CALCIFEDIOL 30 MCG PO SCH (09:00)
[2019-01-22] MEDS ORDERED: METHYLPREDNISOLONE SOD SUCC 1,000 MG/8 ML VIAL IV SCH (10:45)
--- NOTE | 2019-01-22 11:08 | Progress Note ---
DATE: 01/22/2019 Renal Progress Note SUBJECTIVE: Followed for acute kidney injury on chronic kidney disease stage 3, acute kidney injury. Etiology is uncertain at this point, however, differential diagnosis would include acute interstitial nephritis versus other causes for nephrotic syndrome as well as glomerulonephritis. MPGN would be in the diagnostic list as well. I have also ordered serologies for lupus and we will also order serologies for vasculitis. Kidney biopsy is still pending. The patient had a dialysis session yesterday. She is hemodynamically a lot more stable today. Blood pressure is in the 130s mmHg systolic BP. The patient is going to have a second dialysis treatment today. Kidney biopsy is still pending. The patient is to continue high-dose steroids for now. A lot of the serologies and other workup that was ordered yesterday still pending as well. Currently, she says she feels better overall, less short of breath. Lower extremity edema is improved. Just still have ascites. OBJECTIVE: VITAL SIGNS: Blood pressure 131/58, 82 heart rate, and afebrile. LUNGS: Clear to auscultation bilaterally. CARDIOVASCULAR: S1 and S2. No rub. ABDOMEN: Soft. Positive bowel sounds. Nontender. There is ascites present. EXTREMITIES: Evidence of 2+ edema lower extremity. No clubbing. No cyanosis. LABORATORY WORKUP: Sodium today 133, potassium 4.7, chloride 103, bicarb 18, BUN 61, creatinine 4.77, calcium 8, and albumin 1.8. Liver function tests were done and were essentially negative. Hepatitis serologies were negative. SPEP, UPEP results are still pending. C3, C4, still pending. CH50 still pending. Gtyg-oadqht-cwsnicyn DNA antibody still pending also. IMPRESSION AND PLAN: 1. Acute kidney injury on chronic kidney disease stage 3. Etiology uncertain for the acute kidney injury, however, as outlined above in HPI, differential is vast and would include acute interstitial nephritis versus other causes for nephrotic syndrome would include membranous nephropathy versus membranoproliferative glomerulonephritis. We will also rule out vasculitis, lupus nephritis, and we will make further recommendations. For now, would continue high-dose IV steroids pending preliminary biopsy results. Continue to monitor closely here in the ICU and make further recommendations. 2. Hypertension. Blood pressure is much better now. I leave up all blood pressure lowering medications. Would also for now hold the midodrine and if the midodrine is required to be given can give during dialysis. 3. Metabolic acidosis from renal failure. We will correct with dialysis. 4. Ascites. Would recommend to do paracentesis. I would defer to GI. 5. Fluid overload, improving with dialysis. We will continue with ultrafiltration dialysis. MD DAMIAN Johnson/MODL /[id number]
[2019-01-22] MEDS: CEFTRIAXONE SOD 1 GM in DEXTROSE 5% 50ML 50 ML IV SCH (11:30)
[2019-01-22] MEDS: MIDODRINE HCL 5 MG TABLET PO SCH ×2 (12:00→18:00)
[2019-01-22] MEDS ORDERED: LIDOCAINE HCL 1% LOCAL INJ 20 ML VIAL ONE (13:28)
[2019-01-22] MEDS ORDERED: FENTANYL CITRATE/PF 100MCG/2 ML INJ ONE (14:38)
[2019-01-22] MEDS ORDERED: SODIUM CHLORIDE 0.9% 500ML 0 ML ONE (14:38)
[2019-01-22] MEDS ORDERED: MIDAZOLAM HCL 2 MG/2 ML VIAL ONE (14:38)
--- NOTE | 2019-01-22 14:38 | Diagnostic Imaging Report ---
Nontunneled dialysis catheter placement, 01/21/2019. History: Acute renal failure. Comparison: None available. Allergist/Md: Dr. Robison. Medication: 5 cc of 1% lidocaine without epinephrine. Conscious sedation: None. EBL: < 2 cc. Specimen: None. Fluoroscopy time: 0.12 minutes. Fluoroscopy dose: 1.7 mGy (ERVIN) Technique: After informed consent and timeout procedure, the access site was prepped and draped with the standard maximal sterile barrier technique. Ultrasound images demonstrated vessel patency. Images were documented within PACS. The skin was anesthetized with lidocaine. The right internal jugular vein was accessed using a micropuncture set with ultrasound guidance. A 0.035-in. wire was advanced through the micropuncture sheath into the vein. The wire was advanced through the atrium into the IVC using fluoroscopic guidance. The tract was dilated. A 13 Faroese 15 cm triple-lumen Trialysis catheter was advanced over the wire into the vessel. The catheter was secured with suture. Dressing was applied. The patient tolerated the procedure well without evidence of complication. Postprocedure image demonstrates the line to terminate near the cavoatrial junction. IMPRESSION: Successful nontunneled dialysis catheter placement with ultrasound and fluoroscopic guidance guidance. Catheter is ready for immediate use. Signed by: Fritz Robison on 01/21/2019 4:17 PM
[2019-01-22] MEDS: CEFTRIAXONE SOD 1 GM/NS 50 ML 50 ML IV SCH (15:30)
[2019-01-22] MEDS: METHYLPREDNISOLONE SOD SUCC 500 MG in SODIUM CHLORIDE 0.9% 100 ML IV SCH (15:31)
--- NOTE | 2019-01-22 16:13 | Diagnostic Imaging Report ---
PROCEDURE: Ultrasound-guided nonfocal renal biopsy Procedural Personnel Attending physician(s): Cora Blanc MD Fellow physician(s): None Resident physician(s): None Advanced practice provider(s): None Pre-procedure diagnosis: Acute on chronic kidney injury Post-procedure diagnosis: Same Indication: Acute on chronic kidney injury Previous biopsy of same target (QCDR): No Additional clinical history: None Complications: No immediate complications. IMPRESSION: Ultrasound-guided biopsy of right renal cortex. Plan: Specimen(s) sent for evaluation. PROCEDURE SUMMARY: - Percutaneous US-guided nonfocal renal biopsy - Additional procedure(s): None PROCEDURE DETAILS: Pre-procedure Reference imaging for biopsy target: CT abdomen pelvis of 01/21/2019 Consent: Informed consent for the procedure including risks, benefits and alternatives was obtained and time-out was performed prior to the procedure. Preparation: The site was prepared and draped using maximal sterile barrier technique including cutaneous antisepsis. Anesthesia/sedation Level of anesthesia/sedation: Moderate sedation (conscious sedation) Anesthesia/sedation administered by: Independent trained observer under attending supervision with continuous monitoring of the patient?s level of consciousness and physiologic status Total intra-service sedation time (minutes): 30 Imaging prior to biopsy The patient was positioned prone. Initial ultrasound was performed. Biopsy target: - Location: Right renal cortex Other findings: None Biopsy Local anesthesia was administered. Under US guidance, the biopsy needle was advanced to the target and biopsy was performed. Coaxial needle: 17 gauge Core needle biopsy device: [employer] Core needle size: 18 gauge x 15cm Number of core specimens: 3 On-site biopsy touch preparation: Yes Additional sampling recommendations: None Preliminary assessment of sample adequacy: Adequate Needle removal The biopsy needle was removed and a sterile dressing was applied. Tract embolization: Gelfoam slurry Imaging following biopsy Immediate post-biopsy ultrasound was performed. Post-biopsy imaging findings: No hematoma Additional Details Additional description of procedure: None Equipment details: None Specimens removed: Biopsy samples as detailed above Estimated blood loss (mL): Less than 10 Standardized report: [id number] Attestation Signer name: Cora Blanc MD I attest that I was present for the entire procedure. I reviewed the stored images and agree with the report as written. Signed by: Cora Blanc MD on 01/22/2019 4:10 PM
--- NOTE | 2019-01-22 16:37 | NUR ---
Dr. Ibarra GI covering for Dr. Riley paged via office staff for new consult.
--- NOTE | 2019-01-22 18:48 | NUR ---
Patients family requesting different GI doctor. Dr. Valera aware and said to let family know options for other GI doctors. Dr. Jain paged for new consult. stated dr. Fred espinosa. paged and informed of consult. Patient NPO since midnight for biopsy today of R kidney. Patient had 2L removed during dialysis this afternoon. Patient went for R kidney biopsy with ENGINE LATHE SET UP OPERATOR in IR today. Dressing CDI patient remained supine per order for 4 hours post procedure. Will continue to monitor the patient, patient does not appear to be in any distress at this time.
--- NOTE | 2019-01-22 19:07 | NUR ---
Per family members they have not filled prescriptions for home meds at this time. RN unable to administer home medications due to them not being provided by family at this time. Medications given late this afternoon because they were held until after dialysis.
[2019-01-22] MEDS: GABAPENTIN 300 MG CAP PO SCH (20:30)
[2019-01-22] MEDS: LACTULOSE SYRUP 20 GM/30 ML UDC PO SCH (20:30)
[2019-01-22] MEDS ORDERED: CEFTRIAXONE SOD 1 GM VIAL ONE (20:33)
[2019-01-22] MEDS: ALPRAZOLAM 0.25 MG TAB PO PRN (21:03)
[2019-01-22 21:53] LABS: CHOL/HDL RATIO 8.9 (3.0-3.6)
[2019-01-22 22:00] LABS: HIV 1&2 AB SCREEN NON-REACTIVE (NONREACTIVE)
[2019-01-22 22:15] LABS: FERRITIN 377.79 ng/mL (4.63-204.00); FREE THYROXINE INDEX 0.9096 (1.4-3.8); THYROID STIMULATING HORMONE 0.156 uIU/mL (0.350-4.940)
--- NOTE | 2019-01-22 23:27 | NUR ---
IM-progress note O/N no events IM- progress note O/N no events ROS; no f/c/s/MATTHEWS/cp/sob/back pain/skin rash/diarrhea v/s revd PE tired appearing anicteric ns1s2 mod bs soft nd; mildly tender abdomen trace leg edema skin dry flat affect a&0x3; mina labs/meds; revd A/P: 68yoF Ascites Cirrhosis ESRD Intractable N/V PLAN s/p paracentesis IV abx prophylactically Antiemetics SCD D/c planning CKD3 due to DM2; now with MELITA; Obesity BMI 35.3. check hba1c/lipids. 01/21 f/u studies; appreciate nephrology recs. 01/22 started on dialysis; renal bx pending; Leo Valera MD, PhD.
[2019-01-23] VITALS (17 sets, daily range): BP systolic 91–138; BP diastolic 43–70
--- NOTE | 2019-01-23 04:54 | Consultation ---
DATE OF CONSULTATION: 01/22/2019 HISTORY OF PRESENT ILLNESS: She is a 68-year-old lady, who is currently not awake. The story obtained from her sister at the bedside. She known to be diabetic all her life, very well controlled. Recently, she started having abdominal discomfort and constant diarrhea. She went and saw retirement assistant also when her liver enzyme noted to be elevated. This presumption initially was that the elevation liver enzymes due to her diabetes medication, which has been taking for years and dose were stopped. However, it gradually her health condition has deteriorated, as I said earlier, she has always been healthy except for well-controlled diabetes to the point where she developed severe ascites and kidney function deteriorated and admitted to the hospital. Since her admission, she was placed on dialysis, Kidney Service evaluating her and she had liver biopsy today. For her ascites, she had a paracentesis 4 L of fluid was drawn and ultrasound and CT scan of the abdomen without contrast were done. I was asked to see her to help managing her ascites and for the evaluation of cirrhosis. Currently, the patient is asleep. Due to the fact that she received some sedation from the liver biopsy today. She also underwent dialysis today and lately, according to her daughter, her mental status has not been cleared. She has been delirious and was suggestive of hepatic encephalopathy. PAST SURGICAL HISTORY: Unremarkable. PAST MEDICAL HISTORY: Diabetes. SOCIAL HISTORY: Does not smoke or drink. ALLERGIES: TO SHELLFISH. CURRENT MEDICATIONS: Methylprednisolone, ceftriaxone, Claritin, Zyvox once a day, Lexapro, Xanax, gabapentin, Dilaudid, Zofran, and Protonix. PHYSICAL EXAMINATION: GENERAL: She is asleep, drowsy, awakable, oriented to command, but she is not able to communicate. NECK: Supple. EYES: Normal sclerae. LUNGS: Clear. HEART: Regularly irregular; occasional irregular beat. ABDOMEN: Soft, obese, no acute signs. Bowel sounds present. EXTREMITIES: 1+ to 2+ pedal edema. SKIN: She has skin changes of psoriasis. LABORATORY DATA: White cell count 8, hemoglobin 9.3, hematocrit 27, platelet 100. PT 16, INR 1.27. Her JOHN is pending. Her BUN 61, creatinine 4.7, sodium 133, potassium 4.7, calcium is 8, magnesium 1.7, total bilirubin normal, AST normal, ALT normal, alkaline phosphatase normal, albumin 1.8. Her ascitic fluid showed WBCs of 70. Culture negative. Total protein in the ascitic fluid is 0.8. Albumin 0.3, gradient more than 1.1. IMPRESSION: The case was discussed with her cisco engineer, Dr. Caldwell. I entertained the possibility of the patient is having hepatorenal syndrome. Her ascitic fluid indicating total protein 0.8 and high gradient 1.1, less likely to be nephrotic, less likely to be cardiac, most likely a liver etiology. Her ultrasound only suggestive of cirrhotic changes. No focal lesion. Her CT scan of the liver was done without contrast did not show any liver lesion. 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 PLAN: My plan for her to place her on renal low-salt diet to stop any normal saline in any of her IV. Started on lactulose 3 times a day. The patient has had no bowel movement since, she was admitted on last Monday. Increase the dose Zyvox into twice a day. Checked with Pathology Department, if ascitic fluid was sent for any cytology. Initiate liver workup, so far we have only hepatitis screen is negative. I will order edkd-qbcmvt-cbuggg antibody, antimitochondrial antibody, celiac disease screening, alpha-1 antitrypsin, alpha-fetoprotein, TSH, lipid panel, iron saturation, ferritin, ceruloplasmin, HIV and also I will start her on Protonix. The next day if workup is negative, may need a liver biopsy. Chiki Ibarra MD RD/MODL /[id number] cc: Patient Chart
[2019-01-23] MEDS: LACTULOSE SYRUP 20 GM/30 ML UDC PO SCH ×3 (05:17→23:15)
[2019-01-23 05:24] LABS: HEMATOCRIT 30.5 % (34.2-44.1); HEMOGLOBIN 10.2 g/dL (12.0-16.0); LYMPHOCYTES # (AUTO) 0.2 (1.0-3.2); LYMPHOCYTES % 2.4 % (18.0-39.1); MEAN CORPUSCULAR HEMOGLOBIN 29.3 pg (28-32); MEAN CORPUSCULAR HGB CONC 33.4 g/dL (31-35); MEAN CORPUSCULAR VOLUME 87.6 fL (81-99); MONOCYTES # (AUTO) 0.3 (0.2-0.8); MONOCYTES % 3.8 % (4.4-11.3); NEUTROPHILS % 93.1 % (38.7-80.0); PLATELET COUNT 116 x10e3/uL (140-360); RED BLOOD COUNT 3.48 x10e6/uL (3.6-5.1); RED CELL DISTRIBUTION WIDTH 14.5 % (11.7-14.4)
--- NOTE | 2019-01-23 05:40 | NUR ---
IM-progress note O/N no events IM- progress note O/N no events ROS; no f/c/s/MATTHEWS/cp/sob/back pain/skin rash/diarrhea v/s revd PE tired appearing anicteric ns1s2 mod bs soft nd; mildly tender abdomen trace leg edema skin dry flat affect a&0x3; mina labs/meds; revd A/P: 68yoF Ascites Cirrhosis ESRD Intractable N/V PLAN s/p paracentesis IV abx prophylactically Antiemetics SCD D/c planning CKD3 due to DM2; now with MELITA; Obesity BMI 35.3. check hba1c/lipids. 01/21 f/u studies; appreciate nephrology recs. 01/22 started on dialysis; renal bx pending; 01/23 Hepatorenal syndrome; s/p right renal bx; per GI may need liver bx. Iron deficiency anemia. Leo Valera MD, PhD.
[2019-01-23 05:48] LABS: ALBUMIN 1.7 g/dL (3.5-5.0); ALBUMIN/GLOBULIN RATIO 0.6 (0.8-2.0); ANION GAP 17.7 mmol/L (8-16); CALCIUM 8.2 mg/dL (8.4-10.2); CREATININE, SERUM 3.94 mg/dL (0.57-1.11); POTASSIUM 4.7 mmol/L (3.5-5.1)
[2019-01-23 06:17] LABS: MAGNESIUM 1.8 MG/DL (1.3-2.1); PHOSPHORUS 6.9 MG/DL (2.3-4.7)
[2019-01-23 07:30] LABS: LYMPHOCYTES % (MANUAL) 3 % (19-48); MONOCYTES % (MANUAL) 3 % (3.4-9.0); NEUTROPHILS % (MANUAL) 94 % (40-74)
[2019-01-23 07:31] LABS: ANISOCYTOSIS SLIGHT; HYPOCHROMASIA SLIGHT; MICROCYTOSIS SLIGHT; POIKILOCYTOSIS MODERATE
[2019-01-23 07:32] LABS: BURR CELLS SLIGHT; HELMET CELLS SLIGHT; PLATELET ESTIMATE SLIGHTLY DECREASED; RBC MORPHOLOGY COMMENT ABNORMAL; TARGET CELLS FEW
[2019-01-23 07:33] LABS: OVALOCYTES FEW; PLATELET MORPHOLOGY COMMENT NORMAL; TEAR DROP CELLS FEW
[2019-01-23] MEDS: RIFAXIMIN 550 MG TABLET PO SCH ×2 (09:00→17:11)
[2019-01-23] MEDS: BROMFED PO SCH ×4 (09:00→20:24)
[2019-01-23] MEDS: ESCITALOPRAM OXALATE 10 MG TAB PO SCH (09:00)
[2019-01-23] MEDS: LORATADINE 10 MG TAB PO SCH (09:00)
[2019-01-23] MEDS: CALCIFEDIOL 30 MCG PO SCH (09:00)
[2019-01-23 09:38] LABS: BILIRUBIN,URINE MODERATE (NEGATIVE); CLARITY,URINE CLOUDY (CLEAR); COLOR,URINE YELLOW (YELLOW); KETONES,URINE TRACE (NEGATIVE); LEUKOCYTE ESTERASE ,URINE TRACE (NEGATIVE); NITRITE,URINE NEGATIVE (NEGATIVE); URINE UROBILINOGEN 0.2 mg/dL (0.2 - 1)
[2019-01-23 09:39] LABS: PROTEIN,URINE DIPSTICK 3+ (NEGATIVE)
[2019-01-23 09:47] LABS: AMORPHOUS SEDIMENT,URINE MODERATE (FEW); BACTERIA,URINE MANY /HPF; EPITHELIAL CELLS,URINE MANY /LPF; WBC,URINE (MAN) >50 /HPF (0-5)
--- NOTE | 2019-01-23 10:09 | Progress Note ---
DATE: 01/23/2019 Renal Progress Note SUBJECTIVE: The patient is followed for acute kidney injury on chronic kidney disease, stage 3. Acute kidney injury is currently dependent on dialysis, etiology of acute kidney injury is not completely certain yet. However, in the differential, there is acute interstitial nephritis and with the patient having profound hypoalbuminemia and anasarca, there certainly is nephrotic syndrome differential in the diagnoses list. Kidney biopsy has been done and the results are still pending. The patient is on empiric high-dose IV Solu-Medrol for the 3rd day today and likely I will switch over to oral prednisone from tomorrow. The patient is doing 3rd dialysis treatment now. She is tolerating without problems. Hemodynamically stable, able to remove fluid as well. The patient is also being followed by GI and GI workup is underway. No nausea, no vomiting, no shortness of breath this morning. OBJECTIVE: VITAL SIGNS: Blood pressure is 130s over 60s, 73 pulse, afebrile, and 15 respirations. LUNGS: Clear to auscultation bilaterally. CARDIOVASCULAR: S1, S2. No rub. ABDOMEN: Soft. Positive bowel sounds. EXTREMITIES: 1 to 2+ edema. No clubbing. No cyanosis. LABORATORY DATA: As follows; sodium 137, potassium 4.7, chloride 101, bicarb 23, BUN 53, creatinine 3.9, glucose 197, calcium 8.2, phosphorus 6.9, and magnesium is 1.8. C3 was low, C4 still pending. Dgqx-kpfevs-fbdfiogl DNA antibody was negative. ANCA titers are still pending. Urine protein and creatinine ratio from today still pending. UA still pending from today. SPEP, UPEP, results are still pending. HIV was negative. Hepatitis serologies all also negative. IMPRESSION AND PLAN: 1. Acute kidney injury on chronic kidney disease, stage 3. Suspect acute kidney injury, etiology is at this time uncertain. However, the differential would be acute interstitial nephritis as the patient was on antibiotics outpatient and may have contributed to the acute interstitial nephritis, but also rule out other possibilities of nephrotic syndrome given profoundly low albumin as well as anasarca. Preliminary kidney biopsy results are still pending. We will continue to monitor closely and make further recommendations. We will do a 3rd dialysis treatment today and likely watch off dialysis tomorrow and then put her on a Monday, Monday, Monday schedule from Monday. 2. Hypertension. Blood pressure is much better. We will get her 3rd dose of IV Solu-Medrol today and we will place her on oral prednisone from tomorrow. Pending at least preliminary to final kidney biopsy results to decide whether or not she needs another course of steroids. 3. Anemia of chronic disease, stable. 4. Metabolic acidosis, improving with dialysis. 5. Hyperphosphatemia. Should correct with dialysis. Would not put any phosphate binders just yet as the kidney function starts to improve on its own should expect the phosphorus normalized as well. 6. Possible liver disease. Plan and workup as per GI recommendation. Casey Caldwell MD TH/MODL /[id number]
[2019-01-23 11:06] LABS: YEAST,URINE MANY
[2019-01-23 11:07] LABS: EOSINOPHIL SMEAR,URINE NONE SEEN (NONE SEEN); RBC,URINE 21-50 /HPF (0-5)
[2019-01-23] MEDS: CEFTRIAXONE SOD 1 GM in DEXTROSE 5% 50ML 50 ML IV SCH (11:30)
[2019-01-23 12:08] LABS: TOTAL PROTEIN, URINE 684.5 mg/dL (1-14)
[2019-01-23] MEDS: METHYLPREDNISOLONE SOD SUCC 500 MG in SODIUM CHLORIDE 0.9% 100 ML IV SCH (13:41)
--- NOTE | 2019-01-23 14:43 | NUR ---
Pt received from ICU at this time. Pt is aox4 and able to verbalize needs. Pt denies any pain at this time. Pt has trialysis catheter to right IJ and is patent. Breathes are even and unlabored on O2 2L/NC.
--- NOTE | 2019-01-23 14:52 | NUR ---
IMM explained to patient and daughter. Daughter signed, placed in chart, copy given to patient.
[2019-01-23] MEDS ORDERED: MIDODRINE HCL 5 MG TABLET PO SCH (17:00)
--- NOTE | 2019-01-23 17:00 | NUR ---
Dr. Ibarra here to see pt and gave orders to give pt Lactulose 30ml PO every hour until pt has BM. Once pt has had BM previous Lactulose order may be resumed.
[2019-01-23] MEDS ORDERED: LACTULOSE SYRUP 20 GM/30 ML UDC PO ONE ×4 (17:15→20:15)
--- NOTE | 2019-01-23 17:17 | Progress Note ---
DATE: 01/23/2019 Ms. Guerrier is stable. No major change. She still has had no bowel movement despite being on lactulose three times a day. She looks a bit more awake and alert than yesterday though. She is still afebrile 96.4 and blood pressure 136/59. I checked with the lab, no ascitic fluid for cytology was sent. If we had to do another paracentesis, I will make sure the fluid was sent for cytology. Her liver workup lab tests are back. As I said earlier, hepatitis screen is negative, HIV is negative, iron saturation normal, however, the alpha-1 antitrypsin, alpha-fetoprotein, celiac screening, lipid fasting serum plasma, antimitochondrial antibody, antismooth muscle antibody, and celiac, all were still pending. Her TSH is back and little bit low and I will leave it to the primary care for management. She is still on a low-salt diet and since she had no bowel movement yet, I am going to increase the lactulose to every 8 hours until she start having large bowel movement and then we will back off to regular dose. Chiki Ibarra MD RD/DAIJA /[id number]
--- NOTE | 2019-01-23 19:30 | NUR ---
patient received awake, alert, lying quietly in bed. no c/o pain noted. patient turned and repositioned for comfort. diaper placed on patient at this time per patients request. pm assessment complete. daughter remains at the bedside. patient/daughter instructed to call for assistance when needed.
[2019-01-23] MEDS: PANTOPRAZOLE 40 MG 10ML VIAL IV SCH (20:00)
[2019-01-23] MEDS: GABAPENTIN 300 MG CAP PO SCH (20:25)
[2019-01-24] VITALS (7 sets, daily range): BP systolic 89–146; BP diastolic 43–80
--- NOTE | 2019-01-24 | NUR ---
lactulose 30cc po given q 1 hr til now. patient sleeping at this time. patient refusing any more lactulose. will continue to monitor for bm.
[2019-01-24] MEDS: LACTULOSE SYRUP 20 GM/30 ML UDC PO SCH ×4 (00:15→21:30)
--- NOTE | 2019-01-24 03:30 | NUR ---
lrg formed/mucousy bm noted at this time. patient cleaned and skin care provided. no c/o pain noted at this time.
[2019-01-24] MEDS: ONDANSETRON HCL INJ 2MG/ML 2ML 2 MG/ML VIAL IV PRN ×2 (04:10→08:29)
[2019-01-24] MEDS: ALPRAZOLAM 0.25 MG TAB PO PRN ×2 (04:10→18:00)
--- NOTE | 2019-01-24 04:10 | NUR ---
patient medicated with xanax 0.25mg po for anxiety per daughters request. patient vomited small amount of brownish colored emesis. patient medicated with zofran 4mg ivp at this time.
--- NOTE | 2019-01-24 05:00 | NUR ---
call placed to Dr. Ibarra at this time re: patient vomiting brownish emesis this am. spoke to Jessie. waiting return call.
[2019-01-24 05:38] LABS: BASOPHILS % 0.1 % (0.0-1.0); HEMATOCRIT 37.4 % (34.2-44.1); HEMOGLOBIN 12.3 g/dL (12.0-16.0); LYMPHOCYTES # (AUTO) 0.2 (1.0-3.2); LYMPHOCYTES % 1.9 % (18.0-39.1); MEAN CORPUSCULAR HEMOGLOBIN 29.6 pg (28-32); MEAN CORPUSCULAR HGB CONC 32.9 g/dL (31-35); MEAN CORPUSCULAR VOLUME 89.9 fL (81-99); MONOCYTES # (AUTO) 0.6 (0.2-0.8); MONOCYTES % 6.4 % (4.4-11.3); NEUTROPHILS # (AUTO) 8.4 (2.1-6.9); NEUTROPHILS % 90.6 % (38.7-80.0); PLATELET COUNT 103 x10e3/uL (140-360); RED BLOOD COUNT 4.16 x10e6/uL (3.6-5.1); RED CELL DISTRIBUTION WIDTH 14.8 % (11.7-14.4)
--- NOTE | 2019-01-24 05:50 | NUR ---
no return call noted from Dr. Ibarra. call placed to Dr. Valera at this time.
--- NOTE | 2019-01-24 06:00 | NUR ---
Return call noted from Dr. Valera. He says he will see patient when he gets here. amonia level ordered at this time,
[2019-01-24 06:02] LABS: ANION GAP 21.9 mmol/L (8-16); CALCIUM 8.7 mg/dL (8.4-10.2); CREATININE, SERUM 3.26 mg/dL (0.57-1.11); MAGNESIUM 1.9 MG/DL (1.3-2.1); POTASSIUM 3.9 mmol/L (3.5-5.1)
[2019-01-24 06:36] LABS: ALBUMIN 2.2 g/dL (3.5-5.0); BILIRUBIN,DIRECT 1.2 mg/dL (0.0-0.5)
[2019-01-24] MEDS: PANTOPRAZOLE 40 MG 10ML VIAL IV SCH ×2 (08:26→21:30)
[2019-01-24] MEDS: CALCIFEDIOL 30 MCG PO SCH (09:00)
[2019-01-24] MEDS ORDERED: PREDNISONE 20 MG TAB PO SCH (09:00)
[2019-01-24] MEDS: BROMFED PO SCH ×4 (09:00→21:00)
[2019-01-24] MEDS: ESCITALOPRAM OXALATE 10 MG TAB PO SCH (09:31)
[2019-01-24] MEDS: LORATADINE 10 MG TAB PO SCH (09:31)
[2019-01-24] MEDS: RIFAXIMIN 550 MG TABLET PO SCH ×2 (09:32→16:44)
--- NOTE | 2019-01-24 10:55 | Progress Note ---
DATE: 01/24/2019 Renal Progress Note SUBJECTIVE: Followed for acute kidney injury on chronic kidney disease, stage 3. The patient's preliminary biopsy results after discussion with the pathologist are kind labs, is consistent with chronic diabetic nephropathy, but he suspects that there is an acute component secondary to IgA nephropathy, although there is lot of chronic sclerosis related to IgA nephropathy also. He suspects that there is most likely chronic irreversible damage on the pathological side so far. No nausea. No vomiting. No shortness of breath. The patient had dialysis yesterday. She is doing a lot better today. OBJECTIVE: VITAL SIGNS: Noted. Blood pressure is 146/67, pulse 98, afebrile. LUNGS: Clear to auscultation bilaterally. CARDIOVASCULAR: S1 and S2. No rub. ABDOMEN: Soft and nontender. EXTREMITIES: 1 to 2+ edema. LABORATORY DATA: Labs have been noted. Hemoglobin is 12.3. Potassium 3.9, BUN 41, creatinine 3.26, phosphorus 6, and magnesium 1.9. IMPRESSION AND PLAN: 1. Acute kidney injury on chronic kidney disease, stage 3. Suspect there is a component here of worsening kidney function, but there is chronic kidney disease as based on the kidney biopsy results, suggestive of diabetic nephropathy and then on top of that there is IgA nephropathy. There may or may not have been a component of acute interstitial nephritis. For now, we will keep her on low-dose oral prednisone 40 mg daily and we will monitor for any possible recovery of kidney function. However, it does appear as though for now, the patient will be dialysis-dependent for now and today, she did not require acute dialysis. We will plan for dialysis again tomorrow. 2. Hypertension. I leave up all blood pressure lowering medications for now. If the blood pressure is consistently trends upwards, then we will add JANY inhibitor or ARB, especially since the patient has proteinuria. 3. Anemia of chronic disease, stable H and. We will continue to monitor. 4. Mild hyperphosphatemia. We will consider adding phosphate binder. Phosphorus continues to be high tomorrow. 5. Liver cirrhosis. Plan would be as per GI recommendations. Workup is underway as per GI recommendation. Casey Caldwell MD TH/MODL /[id number]
[2019-01-24] MEDS: CEFTRIAXONE SOD 1 GM in DEXTROSE 5% 50ML 50 ML IV SCH (12:00)
[2019-01-24] MEDS ORDERED: SODIUM CHLORIDE 0.9% 250ML 250 ML ONE (12:23)
--- NOTE | 2019-01-24 15:52 | NUR ---
Nutrition Intervention Note RD Recommendation for Physician: -Continue renal diet as ordered -Nepro BID Plan of Care: RD following, monitoring for tolerance and adequacy Nutrition reason for involvement: follow up Primary Diagnose(s): Ascites, liver cirrhosis PMH: Liver cirrhosis, HTN, T2DM, CKD stage 3, Anemia, GI: last recorded BM 01/24 Skin: no pressure ulcers Labs: (01/24/19) BUN 41, Creat 3.26, Glu 229, Phos 6.0 Meds: (01/24/19) zofran, protonix, lactulose, heparin, mannitol, NaCl Ht:62.5 in Wt:195lb BMI:35.7 kg/m2 IBW:112.5lb RD Assessment: (01/24/19) Follow up. Attempted to speak to pt, but pt did not provide much information; therefore, information was obtained from chart. Pt is receiving dialysis and is on a renal diet. Per documentation, pt has been consuming 0-40% of meals since 01/21. Recommend Nepro BID. Weight has been stable per chart. Will continue to monitor. (01/19/2019) Chart reviewed. Labs and meds reviewed. Initial encounter with patient. Pt only able to eat small meals due to ascites. Pt with vomiting after she eats too much. Pt denies any difficulty chewing or swallowing. Current Diet: Renal Malnutrition Evaluation (01/24/2019) The patient does not meet criteria for a specified degree of malnutrition at this time. Will re-evaluate at follow-up as appropriate. Energy intake: <50% of estimated energy requirements for 3 days Weight loss: No weight loss reported Fat loss: unable to evaluate Muscle loss: unable to evaluate Supporting Evidence: Fluid accumulation: 1 to 2+ edema per MD note. Of note, pt has ascites/ liver cirrhosis Functional Status: unable to evaluate Nutrition Prescription (Diet Order): Renal Diet Estimated Nutritional Needs: 1033-3235 calories/day (22-25 kcal/kg IBW) 61-77 g protein/day (1.2-1.5 g pro/kg IBW Diet Adequacy: Not meeting calorie needs, Not meeting protein needs Tolerance: Tolerating PO Diet Education Needs Assessment: RD is available for diet education as needed Nutrition Care Level: low Nutrition Diagnosis: Inadequate energy intake secondary to decreased ability to consume sufficient energy as evidenced by pt eating <50% of meals. Goal: Patient will meet 75-100% of estimated needs by follow up Progress: N/A Interventions: Mineral-modified diet, Commercial beverage, Monitoring/Evaluation: Total energy intake, Total protein intake, Modified diet, Liquid supplement, Weight change Signed: Sudha Ford RD, LD
--- NOTE | 2019-01-24 18:07 | Progress Note ---
DATE: 01/24/2019 SUBJECTIVE: Ms. Guerrier is doing much better, best I have seen her so far. She is awake, alert, responds to command. She had several BMs in the last 24 hours. She is afebrile, hemodynamically stable. Abdomen is soft, not tender. No acute sign. Recent lab test, sodium 138, potassium 3.9, BUN 41, creatinine 3, total bilirubin 1.8. AST, ALT, and alkaline phosphatase are all normal. As far as the liver workup, the lipid profile came back with 125 triglycerides, 124 cholesterol, alpha-fetoprotein normal. However, the alpha-1 antitrypsin, ceruloplasmin, antimitochondrial antibody, anti-smooth muscle antibody, and celiac screening all are still pending. I am ordering ultrasound of the abdomen with Doppler study of her portal vein. Still no clear etiology of her liver disease. If nothing showed up on her workup, we may refer her to see a transportation maintenance supervisor as an outpatient for further workup and management of her cirrhotic liver. Chiki Ibarra MD RD/DAIJA /[id number]
--- NOTE | 2019-01-24 19:00 | NUR ---
BEDSIDE SHIFT REPORT GIVEN TO THE MINE DEPUTY RN. PT DENIED FURTHER NEEDS.
--- NOTE | 2019-01-24 19:11 | NUR ---
WALKING ROUNDS PERFORMED, RECEIVED PT LAYING SEMI FOWLERS IN BED, RESTING, 16 RR/MIN. NO S/SX OF DISTRESS NOTED. LEFT PT LAYING SEMI FOWLERS IN BED, BED IN LOW LOCKED POSITION, SIDE RAILS UPX2, CALL LIGHT AND PHONE WITHIN REACH.
[2019-01-24 21:25] LABS: ALPHA-1-ANTITRYPSIN 231 mg/dL (101-187)
[2019-01-24] MEDS: GABAPENTIN 300 MG CAP PO SCH (21:30)
[2019-01-25] VITALS (7 sets, daily range): BP systolic 112–124; BP diastolic 56–68
--- NOTE | 2019-01-25 00:17 | NUR ---
SPOKE WITH DR. MAURICE REGARDING THE LACTIC ACID AND WAS TOLD NOT TO RESTART XANAX.
[2019-01-25 05:41] LABS: BASOPHILS % 0.2 % (0.0-1.0); EOSINOPHILS % 0.2 % (0.0-6.0); HEMATOCRIT 39.3 % (34.2-44.1); HEMOGLOBIN 12.8 g/dL (12.0-16.0); LYMPHOCYTES # (AUTO) 0.2 (1.0-3.2); MEAN CORPUSCULAR HEMOGLOBIN 29.6 pg (28-32); MEAN CORPUSCULAR HGB CONC 32.6 g/dL (31-35); MONOCYTES # (AUTO) 0.5 (0.2-0.8); MONOCYTES % 2.8 % (4.4-11.3); NEUTROPHILS # (AUTO) 15.5 (2.1-6.9); NEUTROPHILS % 95.3 % (38.7-80.0); PLATELET COUNT 69 x10e3/uL (140-360); RED BLOOD COUNT 4.32 x10e6/uL (3.6-5.1); RED CELL DISTRIBUTION WIDTH 15.2 % (11.7-14.4)
[2019-01-25 06:06] LABS: ALBUMIN/GLOBULIN RATIO 0.7 (0.8-2.0); ANION GAP 22.5 mmol/L (8-16); CALCIUM 8.4 mg/dL (8.4-10.2); CREATININE, SERUM 4.23 mg/dL (0.57-1.11); PHOSPHORUS 6.7 MG/DL (2.3-4.7); POTASSIUM 3.5 mmol/L (3.5-5.1)
[2019-01-25] MEDS: LACTULOSE SYRUP 20 GM/30 ML UDC PO SCH ×2 (06:10→13:25)
[2019-01-25] MEDS ORDERED: ALENDRONATE SODIUM 70 MG TAB PO SCH (06:30)
--- NOTE | 2019-01-25 07:00 | NUR ---
BEDSIDE SHIFT REPORT RECEIVED FROM THE NURSE TECH RN. PT IS CONFUSED. PT TRIED TO PULL OUT THE TRIALYSIS PORT DRESSING. CHANGED THE DRESSING. CDI. BED ALARM IS ON. CALL LIGHT WITH IN EASY REACH. INSTRUCTED PT TO USE CALL LIGHT FOR ALL THE NEEDS. BED IS LOW AND LOCKED. SIDE RAILS X2. PT DENIES NEEDS AT THIS TIME.
--- NOTE | 2019-01-25 07:00 | NUR ---
during walking rounds patient noted to have removed dressing to (R) trialysis cath. New sterile dressing applied utilizing sterile technique. left pt laying semi fowlers in bed, bed in low locked position, side rails upx2, call light and phone within reach. bed alarm activated zone 2
--- NOTE | 2019-01-25 07:15 | NUR ---
WATER REGULATOR AND VALVE REPAIRER AT BEDSIDE.
[2019-01-25 07:24] LABS: CREATININE,URINE RANDOM 127.77 mg/dL (47-110); TOTAL PROTEIN, URINE 1382.3 mg/dL (1-14)
--- NOTE | 2019-01-25 07:30 | NUR ---
PAGED DR. MAURICE AND REPORTED PT BLOOD SUGAR. NO NEW ORDERS RECEIVED.
--- NOTE | 2019-01-25 07:53 | NUR ---
IM-progress note O/N no events IM- progress note O/N no events ROS; no f/c/s/MATTHEWS/cp/sob/back pain/skin rash/diarrhea v/s revd PE tired appearing anicteric ns1s2 mod bs soft nd; mildly tender abdomen trace leg edema skin dry flat affect a&0x3; mina labs/meds; revd A/P: 68yoF Ascites Cirrhosis ESRD Intractable N/V PLAN s/p paracentesis IV abx prophylactically Antiemetics SCD D/c planning CKD3 due to DM2; now with MELITA; Obesity BMI 35.3. check hba1c/lipids. 01/21 f/u studies; appreciate nephrology recs. 01/22 started on dialysis; renal bx pending; 01/23 Hepatorenal syndrome; s/p right renal bx; per GI may need liver bx. Iron deficiency anemia. 01/24 no change; HD per nephrology; 01/25 IgA nephropathy; SEpsis; Coagulopathy; Poor prognosis. Leo Valera MD, PhD.
[2019-01-25 08:05] LABS: BILIRUBIN,URINE MODERATE (NEGATIVE); CLARITY,URINE CLOUDY (CLEAR); COLOR,URINE BROWN (YELLOW); KETONES,URINE TRACE (NEGATIVE); LEUKOCYTE ESTERASE ,URINE TRACE (NEGATIVE); NITRITE,URINE NEGATIVE (NEGATIVE); URINE UROBILINOGEN 0.2 mg/dL (0.2 - 1)
[2019-01-25 08:06] LABS: PROTEIN,URINE DIPSTICK 3+ (NEGATIVE)
[2019-01-25 08:09] LABS: BACTERIA,URINE MANY /HPF; EPITHELIAL CELLS,URINE MANY /LPF; RBC,URINE >50 /HPF (0-5); WBC,URINE (MAN) >50 /HPF (0-5)
[2019-01-25 08:10] LABS: YEAST,URINE MANY
--- NOTE | 2019-01-25 08:26 | NUR ---
CALLED AND SPOKE WITH DAUGHTER MURRAY ELIZABETH [phone] ABOUT SNF ORDER, SHE STATES SHE SPOKE WITH DR DUGAN AND HE TOLD HER LAST NIGHT THAT HER MOTHER WAS NOT ABLE TO MOVE YET AND WILL NOT BE MOVED UNTIL THE MIDDLE OF NEXT WEEK. WILL NOT GIVE CHOICE.
[2019-01-25] MEDS ORDERED: PREDNISONE 20 MG TAB PO SCH (09:00)
[2019-01-25] MEDS: CALCIFEDIOL 30 MCG PO SCH (09:00)
[2019-01-25] MEDS: BROMFED PO SCH ×4 (09:00→21:00)
[2019-01-25] MEDS: PANTOPRAZOLE 40 MG 10ML VIAL IV SCH ×2 (09:00→22:30)
[2019-01-25] MEDS ORDERED: PREDNISONE 10 MG TAB PO SCH (09:00)
[2019-01-25] MEDS: LORATADINE 10 MG TAB PO SCH (09:52)
[2019-01-25] MEDS: ESCITALOPRAM OXALATE 10 MG TAB PO SCH (09:53)
[2019-01-25] MEDS: RIFAXIMIN 550 MG TABLET PO SCH ×2 (09:54→17:01)
[2019-01-25] MEDS: MIDODRINE 2.5 MG TAB PO SCH ×2 (10:02→17:01)
[2019-01-25] MEDS: ALPRAZOLAM 0.25 MG TAB PO PRN (10:05)
--- NOTE | 2019-01-25 11:01 | Progress Note ---
DATE: 01/25/2019 Renal Progress Note SUBJECTIVE: Followed for acute kidney injury on chronic kidney disease, stage 3. Patient has persistent acute kidney injury on chronic kidney disease, likely trending now to end-stage renal disease, especially since the kidney biopsy confirmed more than 70% of the glomeruli was sclerotic and likely had chronic changes of diabetic nephropathy and also IgA nephropathy according to the pathologist. Final biopsy report is still pending. I have taken the patient off IV steroids now. The patient is somewhat confused, also wean off the oral prednisone, also decrease to 30 mg daily from today. The patient is seen on dialysis treatment. Blood pressure is starting to drop during treatments. We will discontinue any ultrafiltration now. Resume midodrine 5 mg twice a day. Currently, no nausea, no vomiting, no shortness of breath. OBJECTIVE: VITAL SIGNS: Have been noted. Blood pressure in dialysis is 80s over 50s. However, last blood pressure prior to dialysis was 113/65, respirations 19, afebrile. LUNGS: Clear to auscultation bilaterally. CARDIOVASCULAR: S1, S2. No rub. ABDOMEN: Soft, nontender. EXTREMITIES: No edema. LABORATORY DATA: Sodium 137, potassium 3.5, chloride 97, bicarb 21, BUN 54, creatinine is 4.2, phosphorus 6.7, H and H 12.8 and 39.3. IMPRESSION AND PLAN: 1. Acute kidney injury on chronic kidney disease, trending towards end-stage renal disease, especially given the fact that the patient has chronically sclerotic glomeruli. Most likely, the patient will be dialysis dependent. For now, we will slowly wean off the prednisone and place on 30 mg daily as outlined above. We will also arrange tunneled dialysis catheter to be placed as well as outpatient dialysis placement. 2. Hypertension. Blood pressure is currently on the low side of normal. We will resume oral midodrine 5 mg twice a day and would not be aggressive with ultrafiltration on dialysis. 3. Anemia of chronic disease, stable. 4. Fluid overload largely resolved. Will not be aggressive with UF for now. 5. Hyperphosphatemia. We will start on Renvela 800 mg with each meal. Casey Caldwell MD /MODL /[id number]
[2019-01-25 11:22] LABS: INR 1.5; PROTHROMBIN TIME 18.7 seconds (11.9-14.5)
--- NOTE | 2019-01-25 11:30 | NUR ---
Visit made by the Spiritual Care Department Pastoral Visitor, Sarika Willson. PV provided pastoral presence, prayer, communion, hospitality, and supportive listening. Pastoral Visitor informed pt/family of the scope of [employer] and availability. MARIANNE GORMAN Inhalation Therapy Aide Spiritual Care Department O: [phone] Pager: [phone] ([phone] number calling from)
[2019-01-25] MEDS: CEFTRIAXONE SOD 1 GM in DEXTROSE 5% 50ML 50 ML IV SCH (12:00)
--- NOTE | 2019-01-25 12:00 | NUR ---
PT BLOOD PRESSURE DROPPED DURING DIALYSIS TO 80'S. INFORMED THE SAME TO PIPE INSPECTOR AND COMMERCIAL BAKER HELPER. AFTER THE DIALYSIS PT BP ON 103.
--- NOTE | 2019-01-25 12:05 | NUR ---
PAGED RADIOLOGY REGARDING PROCEDURE STATUS. PER RADIOLOGY PT NEEDS TO BE ON N[PO. WAITING FOR THE ORDER FROM DR. MARTINEZ
--- NOTE | 2019-01-25 12:14 | NUR ---
CALLED AND SPOKE WITH DAUGHTER MURRAY [phone] SHE STATES SHE LIVES IN [place], SO SHE HAS DECIDED THAT SHE IS GOING TO MOVE HER FAMILY DOWN TO HER AREA, SHE STATES SHE IS LOOKING AT [facility], [address], [place] [address] , SHE STATES SHE IS GOING THERE TODAY AND WILL FIND OUT WHAT DIALYSIS UNITS WITH WHOM THEY ARE IN CONTRACT. WILL INITIATE WHEN GET COMPANY FOR DIALYSIS AND SNF LOCATION. COVER SHEETS AND PACKET ARE ON MY DESK TO COMPLETE IF DECISION IS MADE OVER THE WEEKEND IF INFORMATION IS NOT PROVIDED PRIOR TO END OF DAY TODAY.
--- NOTE | 2019-01-25 12:30 | NUR ---
PER RADIOLOGY, TUNNELED DIALYSIS CATHETER PLACEMENT BY MONDAY SINCE THE PT NEEDS TO BE ON NPO BEFORE THE PROCEDURE. DAUGHTER AND AT BEDSIDE. DAUGHTER SIGNED THE CONSENT FOR THE PT.
--- NOTE | 2019-01-25 12:42 | Diagnostic Imaging Report ---
EXAM: US ABDOMEN DUPLEX DOPPLER COMP DATE: 01/25/2019 3:35 PM INDICATION: Cirrhosis COMPARISON: None TECHNIQUE: Transverse and longitudinal chamberlain scale and color doppler sonographic images of the upper abdomen were obtained. FINDINGS: There is no evidence of fluid or masses seen in the area of clinical concern in the right lower quadrant. LIVER 8.9 cm in the right midclavicular line. Normal echogenicity of the liver with normal contour, no masses. SPLEEN 11.4 cm in maximum diameter. Normal echogenicity, no masses. GALLBLADDER No cholelithiasis or gallbladder distention. Negative sonographic Gracia's sign. The gallbladder wall is mildly thickened to 6 mm. BILE DUCTS No intra nor extra-hepatic biliary dilation. Common bile duct measures 3 mm PANCREAS: Visualized portions are normal. RIGHT KIDNEY: 9.3 cm Echogenicity: Normal Collecting System: No hydronephrosis Stones: None Cyst/Mass: None LEFT KIDNEY: Not well-visualized due to overlying bowel gas. VESSELS: Aorta: Visualized portions are within normal size limits Inferior Vena Cava: Visualized portions are normal Main Portal Vein: 1.2 cm, normal size with hepatopetal flow. FREE FLUID: Moderate volume ascites. IMPRESSION: Difficult exam due to patient body habitus and inability to turn. Hepatopetal flow of the patent portal vein. Cirrhotic, shrunken liver. Gallbladder wall thickening to 6 mm. Negative sonographic Gracia's sign. Signed by: Cora Blanc MD on 01/25/2019 12:39 PM
[2019-01-25] MEDS: SEVELAMER CARBONATE 800 MG TAB PO SCH ×2 (12:56→17:01)
--- NOTE | 2019-01-25 13:15 | NUR ---
PT FAMILY REFUSED LACTULOSE SINCE PT HAD MULTIPLE BM THIS MORNING AND PT IS NOT EATING WELL. INFORMED THE SAME TO DR. MAURICE.
--- NOTE | 2019-01-25 14:00 | NUR ---
WALKING ROUNDS MADE. PT IS ALERT. FAMILY AT BEDSIDE. PT AND FAMILY DENIED FURTHER NEEDS.
--- NOTE | 2019-01-25 15:00 | NUR ---
RECHECKED PT. PT IS ALERT. BED ALARM IS ON. REQUESTED RM CHANGE FOR PT TO THE MECHANICAL SHOP LABORER NEAR TO THE NURSES STATION.
--- NOTE | 2019-01-25 16:00 | NUR ---
PT IS ALERT. NO DISTRESS NOTED.
--- NOTE | 2019-01-25 17:00 | NUR ---
PT BP ON 97/55/ ,MIDODRINE GIVEN PER THE ORDER. INFORMED PT VITALS TO DR. MAURICE.
--- NOTE | 2019-01-25 17:20 | NUR ---
PLATELETS COUNT REPORTED TO DR. MAURICE.
--- NOTE | 2019-01-25 17:20 | NUR ---
RECHECKED PT VITALS. PT IS ALERT. RECTAL TEMP TAKEN. 98.2 NOTED. BP 118/58. HR 105.
[2019-01-25] MEDS ORDERED: SODIUM CHLORIDE 0.9% 1000ML 1,000 ML IV SCH (17:30)
[2019-01-25] MEDS: VANCOMYCIN 1GM/NS 250 ML 250 ML IV ONE ×2 (17:33→18:45)
--- NOTE | 2019-01-25 17:35 | NUR ---
CALLED LAB REGARDING BLOOD CULTURE AND LACTIC ACID.
--- NOTE | 2019-01-25 17:42 | NUR ---
sepsis screen positive. Dr Valera notified of parameters and orders for fluids, labs and bolus received as well as am labs.
[2019-01-25] MEDS ORDERED: SODIUM CHLORIDE 0.9% 1000ML 1,000 ML IV ONE ×2 (17:45)
--- NOTE | 2019-01-25 17:45 | NUR ---
PT VITALS SIGNS UNSTABLE. BP LOW 95/63, RESP 32, TEMP 98.3, HR 115, CORRECTIONAL CAPTAIN AND NETWORK SUPPORT MANAGER AT BEDSIDE. CODE SEPSIS CALLED. PT FAMILY AT BEDSIDE.
--- NOTE | 2019-01-25 18:10 | NUR ---
PAGED DR. MAURICE AND LEFT MESSAGE REGARDING CODE SEPSIS.
--- NOTE | 2019-01-25 18:15 | NUR ---
PT IS ALERT. NO DISTRESS NOTED. FAMILY AT BEDSIDE. CONTINUE MONITOR PT PER DR. TALAVERA.
--- NOTE | 2019-01-25 18:38 | NUR ---
CALL FROM LAB. LACTIC ACID 4.7. PAGED DR. MAURICE REGARDING LACTIC ACID LEVEL.
--- NOTE | 2019-01-25 18:45 | NUR ---
PAGED DR. MAURICE AND INFORMED ALL LAB VALUES. INFORMED CONCERN ON PT. NO NEW ORDERS RECEIVED AT THIS TIME.
--- NOTE | 2019-01-25 19:00 | NUR ---
BEDSIDE SHIFT REPORT GIVEN TO THE JACK MACHINE OPERATOR RN. FAMILY AT BEDSIDE. PT IS ALERT. NO SIGNS OF DISTRESS NOTED. PT DENIED FURTHER NEEDS.
--- NOTE | 2019-01-25 19:05 | NUR ---
CALL BACK FROM DR. MAURICE. NEW ORDER FOR CHEST X RAY STAT AND CALL BACK DR IN 1 HOUR WITH PT BLOOD PRESSURE. INFORMED THE SAME TO CASHIER TICKET SELLING RN.
--- NOTE | 2019-01-25 20:00 | NUR ---
CALLED DR. MAURICE REGARDING PATIENT'S LOW BLOOD PRESSURE. HE ORDERED TO DO A 500 BOLUS FOR THE PATIENT AND TO CALL BACK WITH AN UPDATE.
--- NOTE | 2019-01-25 20:06 | Diagnostic Imaging Report ---
Examination: Single AP view of the chest. COMPARISON: None. INDICATION: Sepsis prevention DISCUSSION: Lines/tubes: Dialysis catheter with tip overlying the right atrium Lungs: Low lung volumes with cardiac the vasculature and pulmonary venous congestion. Lower lung atelectasis. Pleura: Possible small effusions. Heart and mediastinum: Mild cardiomegaly. Bones and soft tissues: No acute bony abnormalities. IMPRESSION: Low lung volumes with crowding of vasculature and pulmonary venous congestion Signed by: Dr. Mac Lazo M.D. on 01/25/2019 8:02 PM
--- NOTE | 2019-01-25 20:10 | NUR ---
CHANGE LACTULOSE TO DAILY PER DR. LEON.
--- NOTE | 2019-01-25 20:10 | NUR ---
INFORMED DR. MAURICE OF THE PATIENT'S X-RAY RESULTS, INFORMED TO CONTINUE WITH BOLUS.
[2019-01-25] MEDS ORDERED: SODIUM CHLORIDE 0.9% 500ML 500 ML IV ONE (20:15)
[2019-01-25] MEDS ORDERED: ACETAMINOPHEN 325 MG TAB PO PRN (20:15)
--- NOTE | 2019-01-25 20:15 | NUR ---
LACTIC ACID ORDERED PER PROTOCOL PER THE INSTRUCTION FROM AUTOMOTIVE PARTS INTERPRETER.
--- NOTE | 2019-01-25 20:20 | NUR ---
BOLUS GIVEN TO PATIENT, PATIENT SHOWING SIGNS OF AGITATION, NASAL CANNULA INTACT AND FLOWING. FAMILY MEMBERS AT BEDSIDE, WILL CONTINUE TO MONITOR.
[2019-01-25] MEDS: GABAPENTIN 300 MG CAP PO SCH (20:30)
--- NOTE | 2019-01-25 21:25 | NUR ---
PAGED DR. MAURICE REGARDING THE PATIENT'S LACTIC ACID LEVEL AND REQUEST TO RESTART XANAX, AWAITING CALL BACK.
--- NOTE | 2019-01-25 21:29 | NUR ---
spoke with Dr. Dean on families concerns
--- NOTE | 2019-01-25 21:45 | Progress Note ---
DATE: 01/25/2019 I am following Ms. Guerrier for her decompensated cirrhosis, no clear etiology except for her diabetes medication. She had extensive liver workup so far, all are negative, test is still pending to come as antimitochondrial antibody, antismooth muscle antibody, and celiac serology. All the rest of her liver workup was negative. She is maintained on Xifaxan and lactulose for altered mental status. She had several bowel movements. Doppler ultrasound of her portal vein showed patent vein. She took a turn to the worse today when she become septic for unclear etiology. Her antibiotics were changed and blood and urine cultures ordered. From GI standpoint, nothing we can add to her care at this point. I talked to her daughter and told her whenever her mom gets better and she recover, I need to send her to see skein winding operator [facility] for high level of care for her decompensated cirrhosis. In the meantime, we will continue watching for any GI changes. Chiki Ibarra MD RD/MODL /[id number]
[2019-01-26] VITALS (61 sets, daily range): BP systolic 50–170; BP diastolic 17–92
--- NOTE | 2019-01-26 00:50 | NUR ---
RAPID RESPONSE WAS CALLED FOR PATIENT AT 23:55. PATIENT'S HEART RATE WAS IN 140'S, SHE BEGAN TO DESATURATE BETWEEN 77% AND 80% AFTER PATIENT REPEATEDLY REMOVED NASAL CANNULA AND WAS PLACED BACK ON PATIENT, AND BLOOD PRESSURE DECREASED TO 90'S SYSTOLIC. RAPID RESPONSE TEAM WORKED TO GET VITALS STABLE AGAIN AND DR. MAURICE WAS CALLED TO ATTEMPT TO GET PATIENT MOVED TO ICU. AFTER TALKING WITH DR. MAURICE PATIENT WAS MOVED TO ICU ROOM 195. BED SIDE REPORT WAS GIVEN TO ICU NURSE, VITALS STILL STABLE.
[2019-01-26 01:50] LABS: INR 1.99; PROTHROMBIN TIME 23.3 seconds (11.9-14.5)
[2019-01-26 01:51] LABS: PARTIAL THROMBOPLASTIN TIME 37.7 seconds (23.8-35.5)
[2019-01-26 02:01] LABS: ALBUMIN 1.8 g/dL (3.5-5.0); ALBUMIN/GLOBULIN RATIO 0.7 (0.8-2.0); ANION GAP 24.8 mmol/L (8-16); CALCIUM 8.4 mg/dL (8.4-10.2); CREATININE, SERUM 3.58 mg/dL (0.57-1.11); POTASSIUM 3.8 mmol/L (3.5-5.1)
[2019-01-26 02:41] LABS: BASOPHILS % 0.2 % (0.0-1.0); EOSINOPHILS # (AUTO) 0.2 (0.0-0.4); EOSINOPHILS % 0.8 % (0.0-6.0); HEMATOCRIT 36.2 % (34.2-44.1); HEMOGLOBIN 12.1 g/dL (12.0-16.0); LYMPHOCYTES # (AUTO) 0.2 (1.0-3.2); MEAN CORPUSCULAR HEMOGLOBIN 29.7 pg (28-32); MEAN CORPUSCULAR HGB CONC 33.4 g/dL (31-35); MEAN CORPUSCULAR VOLUME 88.7 fL (81-99); MONOCYTES # (AUTO) 0.5 (0.2-0.8); MONOCYTES % 1.8 % (4.4-11.3); NEUTROPHILS % 95.6 % (38.7-80.0); PLATELET COUNT 77 x10e3/uL (140-360); RED BLOOD COUNT 4.08 x10e6/uL (3.6-5.1); RED CELL DISTRIBUTION WIDTH 15.3 % (11.7-14.4)
[2019-01-26 03:02] LABS: ALBUMIN 1.8 g/dL (3.5-5.0); BILIRUBIN,DIRECT 1.7 mg/dL (0.0-0.5)
--- NOTE | 2019-01-26 03:04 | Diagnostic Imaging Report ---
Abdomen/KUB INDICATION: Prolapsed uterus ^Claudio Placement ^[id number] ^0220 ^Y COMPARISON: CT abdomen/pelvis 01/21/2019. FINDINGS: Portable, supine image obtained at 0223 hours. Medical Devices: A looped catheter lies at the midline pelvis over the pubic symphysis. Bowel: No air in the small or large bowel Free air: None on this image Abdominal calcifications: None Bones: Degenerative changes of the spine IMPRESSION: Loop catheter at the midline pelvis may or may not be within the urinary bladder. Please correlate with any urinary output from the tube. Signed by: Dr. Daniel So MD on 01/26/2019 3:00 AM
[2019-01-26 04:02] LABS: LYMPHOCYTES % (MANUAL) 2 % (19-48); MONOCYTES % (MANUAL) 2 % (3.4-9.0); NEUTROPHILS % (MANUAL) 96 % (40-74); RBC MORPHOLOGY COMMENT NORMAL
[2019-01-26 04:03] LABS: PLATELET ESTIMATE MODERATELY DECREASED; PLATELET MORPHOLOGY COMMENT NORMAL
[2019-01-26 05:09] LABS: ENDOMYSIAL ANTIBODIES, IGA Negative (Negative)
[2019-01-26 05:26] LABS: BASOPHILS % 0.1 % (0.0-1.0); EOSINOPHILS # (AUTO) 0.2 (0.0-0.4); EOSINOPHILS % 0.8 % (0.0-6.0); HEMOGLOBIN 11.6 g/dL (12.0-16.0); LYMPHOCYTES # (AUTO) 0.3 (1.0-3.2); LYMPHOCYTES % 1.2 % (18.0-39.1); MEAN CORPUSCULAR HEMOGLOBIN 29.5 pg (28-32); MEAN CORPUSCULAR HGB CONC 33.1 g/dL (31-35); MEAN CORPUSCULAR VOLUME 89.1 fL (81-99); MONOCYTES # (AUTO) 0.5 (0.2-0.8); MONOCYTES % 1.8 % (4.4-11.3); NEUTROPHILS # (AUTO) 24.6 (2.1-6.9); NEUTROPHILS % 95.3 % (38.7-80.0); PLATELET COUNT 66 x10e3/uL (140-360); RED BLOOD COUNT 3.93 x10e6/uL (3.6-5.1); RED CELL DISTRIBUTION WIDTH 15.4 % (11.7-14.4)
[2019-01-26 05:50] LABS: ALBUMIN 1.7 g/dL (3.5-5.0); ALBUMIN/GLOBULIN RATIO 0.7 (0.8-2.0); ANION GAP 22.9 mmol/L (8-16); CALCIUM 8.2 mg/dL (8.4-10.2); CREATININE, SERUM 3.63 mg/dL (0.57-1.11); MAGNESIUM 1.8 MG/DL (1.3-2.1); POTASSIUM 3.9 mmol/L (3.5-5.1)
[2019-01-26] MEDS: SEVELAMER CARBONATE 800 MG TAB PO SCH ×3 (08:00→17:02)
[2019-01-26] MEDS ORDERED: NOREPINEPHRINE 8 MG/D5W 250 ML 250 ML ONE (08:25)
[2019-01-26 08:44] LABS: ANISOCYTOSIS SLIGHT; LYMPHOCYTES % (MANUAL) 1 % (19-48); MONOCYTES % (MANUAL) 1 % (3.4-9.0); NEUTROPHILS % (MANUAL) 98 % (40-74); RBC MORPHOLOGY COMMENT NORMAL
[2019-01-26 08:45] LABS: PLATELET ESTIMATE MARKEDLY DECREASED; PLATELET MORPHOLOGY COMMENT NORMAL
[2019-01-26] MEDS ORDERED: VANCOMYCIN 1GM/NS 250 ML 250 ML IV ONE (08:45)
[2019-01-26] MEDS: CALCIFEDIOL 30 MCG PO SCH (09:00)
[2019-01-26] MEDS: BROMFED PO SCH ×4 (09:00→21:00)
[2019-01-26] MEDS ORDERED: MIDODRINE HCL 5 MG TABLET PO SCH (09:00)
[2019-01-26] MEDS ORDERED: LACTULOSE SYRUP 20 GM/30 ML UDC PO SCH (09:00)
[2019-01-26] MEDS: NOREPINEPHRINE INJ 4MG/4ML 8 MG in DEXTROSE 5% 250ML 250 ML IV SCH (09:18)
[2019-01-26] MEDS: PANTOPRAZOLE 40 MG 10ML VIAL IV SCH ×2 (09:20→22:00)
[2019-01-26 09:35] LABS: ABG HCO3 13 mmol/L (23-28); ABG PCO2 29 mmHg (41-51); ABG PH 7.25 (7.31-7.41); ABG PO2 134 mmHg (80-105)
[2019-01-26] MEDS ORDERED: FENTANYL CITRATE/PF 100MCG/2 ML INJ ONE (10:40)
[2019-01-26] MEDS ORDERED: FENTANYL CITRATE/PF 100MCG/2 ML INJ IV NR (11:00)
[2019-01-26] MEDS ORDERED: SODIUM BICARBONATE 8.4% INJ 50 ML SYR IV NR ×3 (11:00→13:30)
--- NOTE | 2019-01-26 11:13 | Diagnostic Imaging Report ---
Examination: Single AP view of the chest. COMPARISON: 01/25/2019. INDICATION: Intubated. DISCUSSION: Lines/tubes: Right IJ Dialysis catheter with tip overlying the right atrium, unchanged. ET tube has been placed with distal tip approximately 2 cm proximal to the blanco. Enteric tube with distal portion extending below the diaphragm, with distal tip not included. Lungs: Low lung volumes with cardiac the vasculature and pulmonary venous congestion. Right basilar platelike atelectasis. Pleura: Possible small effusions. Heart and mediastinum: Mild cardiomegaly. Bones and soft tissues: No acute bony abnormalities. Degenerative changes in the thoracic spine. IMPRESSION: Interval placement of ET tube and enteric tube as detailed above. Otherwise no significant change. Signed by: Dr. Rob Echeverria M.D. on 01/26/2019 11:10 AM
[2019-01-26] MEDS: SODIUM BICARBONATE 8.4% 150 ML in DEXTROSE 5% 1,000 ML IV SCH ×3 (11:33→22:00)
[2019-01-26] MEDS ORDERED: SODIUM BICARBONATE 8.4% SYRING 50 ML ONE (11:39)
[2019-01-26] MEDS ORDERED: SODIUM BICARBONATE 8.4% 50 ML VIAL IV NR (11:45)
--- NOTE | 2019-01-26 11:48 | Diagnostic Imaging Report ---
EXAMINATION: Head CT HISTORY: Confusion, altered mental status, rule out infection, unresponsive COMPARISON: None available TECHNIQUE: Multidetector axial images were obtained without contrast from the foramen magnum to the vertex . The images were reconstructed using brain and bone algorithms. Thin section brain images were reformatted into coronal and sagittal planes. Image quality: Motion/streaking artifact limits the evaluation of the skull base and posterior cranial fossa. Dose modulation, iterative reconstruction, and/or weight based adjustment of the mA/kV was utilized to reduce the radiation dose to as low as reasonably achievable. FINDINGS: Parenchyma: 1. Few scatter and periventricular white matter hypodensities, most likely nonspecific chronic microvascular ischemic changes. 2. Cortical and subcortical hypodensity in the left medial occipital lobe (cuneus) without mass effect and subtle focal associated volume loss, suggestive of chronic insult. 3. No mass or hemorrhage. No CT evidence of acute territorial vascular insult. Extra-axial spaces:No abnormal density. No extra-axial fluid collections Brain volume: Mild generalized brain volume loss, no disproportionate to what atrophy. Ventricles: No hydrocephalus or displacement. Arteries: No density suggestive of thrombus. Dural sinuses: No abnormal density. Extra-axial spaces: No abnormal density. Foramen magnum: No mass, Chiari malformation, or basilar invagination. Sella: No obvious mass. Paranasal/mastoid sinuses: Imaged portions unremarkable. Skull/Scalp: No lytic or blastic lesions. No fractures. IMPRESSION: 1. No intracranial mass, hemorrhage or acute cortical infarcts. 2. Age-indeterminate likely chronic small cortical infarct in the left medial occipital lobe. 3. Mild age-related chronic microvascular ischemic changes. 4. Mild generalized parenchymal volume loss. Signed by: Dr. Fadia Gonzáles M.D. on 01/26/2019 11:44 AM
[2019-01-26] MEDS ORDERED: ETOMIDATE 40 MG/ 20ML VIAL IV ONE (11:59)
[2019-01-26] MEDS ORDERED: ALBUMIN 25% 12.5GM 0.25 GM/ML BTL IV ONE (12:00)
[2019-01-26] MEDS ORDERED: OCTREOTIDE ACETATE 0.05 MG/ML AMP SQ SCH (12:00)
[2019-01-26] MEDS: FENTANYL CITRATE INJ 2,000 MCG in SODIUM CHLORIDE 0.9% 250ML 210 ML IV PRN (12:00)
[2019-01-26] MEDS ORDERED: MIDODRINE 2.5 MG TAB PO SCH (12:00)
[2019-01-26] MEDS: MIDODRINE HCL 5 MG TABLET PO SCH ×2 (12:04→17:02)
--- NOTE | 2019-01-26 12:32 | Progress Note ---
DATE: 01/26/2019 Renal Progress Note SUBJECTIVE: The patient is followed for end-stage renal disease. The patient recently was diagnosed with chronic diabetic nephropathy and IgA nephropathy with most for glomeruli sclerotic as per renal biopsy that was done and read by Pathology. The patient initially came in with acute on chronic kidney disease. Subsequently, has remained dialysis dependent and declared end-stage renal disease. The patient had a dialysis treatment yesterday. She was tolerating fine. She did appear confused. Later in the evening, patient's white blood cell count went up even higher. Code sepsis was called and the patient was subsequently having some respiratory distress as well as transferred to the ICU, intubated this morning. The patient has a profound metabolic acidosis. The lactic acid is 12.6 on the last check. The patient's bicarb on the blood test earlier was 17, potassium 3.9, BUN 36, creatinine 3.6. The patient is on Levophed at 20 mcg. The patient is intubated and not sedated. Much of the history is obtained from the chart currently, she is aneuric. She is in the process of getting another dialysis treatment today for her profound metabolic acidosis. OBJECTIVE: VITAL SIGNS: Have been noted. Blood pressures are in the 90s/60s, but they are labile, heart rate 118, temperature is 99.7, respirations 21. LUNGS: Minimal rales at the bases bilaterally. CARDIOVASCULAR: S1, S2. No rub. ABDOMEN: Soft. Positive bowel sounds. EXTREMITIES: No evidence of lower extremity edema. LABORATORY DATA: As follows; most recent blood work, sodium 139, potassium 3.9, chloride 102, bicarb 17, BUN 36, creatinine 3.6. Lactic acid 12.6, phosphorus 6, magnesium 1.8, calcium 8.2. White cell counts consisting of 25,000, white cell count, H/H 11.6, 35.0, platelets of 66. IMPRESSION AND PLAN: 1. End-stage renal disease secondary to outlined above etiology, diabetic nephropathy, IgA nephropathy. We will do stat SLED or sustained low efficiency dialysis treatment since the patient is unstable on one pressor. The patient will not tolerate conventional dialysis. We will use low blood flows of 150 to 200, dialysate flow of 300 to 400 to 6 hours SLED treatment. Correct metabolic acidosis with a high bicarbonate bath. I will also place her on a bicarb drip and give 3 amps of bicarb IV push stat and monitor closely with serial basic metabolic panels and correct the metabolic acidosis. The patient is unstable at this time. I have discussed the case with the daughter and she is aware of her critical prognosis at this time. We will continue to monitor closely in the ICU and make further recommendations. If the patient does not tolerate the SLED treatment, then she will likely need to be transferred to an outside care facility such as [facility], where CRRT is available. 1. Hypotension. We will increase midodrine to 10 mg three times a day. We will add subcu octreotide, give IV albumin, all of which will help improve the patient's blood pressure by improving effective circulating volume. We will also start bicarb drip since the patient has a primary metabolic acidosis. We will give 3 amps of bicarb as well. We will also do dialysis to correct the metabolic acidosis, which should help improve the blood pressure as well. 2. Profound metabolic acidosis, likely from septic shock. The patient is on Levophed. The patient will get a bicarb drip and bicarb boluses. We will also correct metabolic acidosis with dialysis. 3. Mild hyperphosphatemia. For now, we will continue Renvela. 4. Overall prognosis is grim. Time spent doing this note is 30 minutes. Casey Caldwell MD TH/MODL /[id number]
[2019-01-26 12:55] LABS: ANION GAP 28.9 mmol/L (8-16); CALCIUM 8.7 mg/dL (8.4-10.2); CREATININE, SERUM 3.84 mg/dL (0.57-1.11); POTASSIUM 3.9 mmol/L (3.5-5.1)
--- NOTE | 2019-01-26 12:56 | Diagnostic Imaging Report ---
EXAM: CT Chest, Abdomen and Pelvis WITH contrast INDICATION: Abscess. Fever. Cirrhosis. COMPARISON: Abdomen pelvis dated 01/20/2019. TECHNIQUE: Chest, abdomen and pelvis were scanned utilizing a multidetector helical scanner from the lung apex to the pubic symphysis before and after administration of IV contrast. Coronal and sagittal reformations were obtained. Routine protocol was performed. Scan was performed when during portal venous phase. IV CONTRAST: 100 cc Isovue-300 ORAL CONTRAST: Water RADIATION DOSE: Total DLP: 1949.30 mGy*cm Estimated effective dose: (DLP x 0.015 x size factor) mSv COMPLICATIONS: None FINDINGS: LINES and TUBES: ET tube with distal tip approximately 1 cm centimeters proximal to blanco. Enteric tube with distal tip within the distal gastric body. LUNGS AND AIRWAYS: The lungs are unremarkable. Airways are normal. PLEURA: Bilateral small pleural effusions associated with bibasilar subsegmental atelectasis. HEART AND MEDIASTINUM: The thyroid gland is normal. No mediastinal, hilar or axillary lymphadenopathy. The heart is normal in size.. There is no pericardial effusion. HEPATOBILIARY: Cirrhotic hepatic morphology. No focal hepatic lesions. No biliary ductal dilation. GALLBLADDER: No radio-opaque stones or sludge. No wall thickening. SPLEEN: No splenomegaly. PANCREAS: No focal masses or ductal dilatation. ADRENALS: No adrenal nodules KIDNEYS/URETERS: There is a tiny perirenal hematoma in the posterior superior right kidney associated with tiny gas bubble as seen on images 60, related to recent random renal biopsy. Kidneys enhance symmetrically. No hydronephrosis. No cystic or solid mass lesions. No stones. GI TRACT: No abnormal distention, wall thickening, or evidence of bowel obstruction. Appendix not clearly visualized without evidence of ascites. PELVIC ORGANS/BLADDER: Urinary bladder decompressed by Claudio catheter. LYMPH NODES: No lymphadenopathy. VESSELS: There is mild atherosclerotic disease in the aorta and major arterial branches. PERITONEUM / RETROPERITONEUM: Moderate to large volume of ascites increased since the prior examination. Small foci of free intraperitoneal air, particularly in the right upper quadrant as seen on image 52 may be related to recent instrumentation/paracentesis in the proper setting, however, it could be related to perforated hollow viscus. BONES: There are degenerative changes in the thoracolumbar spine. SOFT TISSUES: Anasarca. IMPRESSION: 1. Small volume pneumoperitoneum may be related to recent instrumentation (such as paracentesis), otherwise there is concern for perforated hollow viscus. It is unlikely to be related to recent renal biopsy. If clinical concern, consider a follow-up examination with water-soluble oral contrast. 2. Bilateral small pleural effusions associated with bibasilar subsegmental compressive atelectasis. 3. Cirrhotic hepatic morphology. Signed by: Dr. Rob Echeverria M.D. on 01/26/2019 12:53 PM
--- NOTE | 2019-01-26 13:04 | NUR ---
IM-progress note O/N no events IM- progress note O/N no events ROS; no f/c/s/MATTHEWS/cp/sob/back pain/skin rash/diarrhea v/s revd PE tired appearing; intubated anicteric ns1s2 mod bs soft nd; mildly tender abdomen trace leg edema skin dry flat affect a&0x3; mina labs/meds; revd A/P: 68yoF Ascites Cirrhosis ESRD Intractable N/V PLAN s/p paracentesis IV abx prophylactically Antiemetics SCD D/c planning CKD3 due to DM2; now with MELITA; Obesity BMI 35.3. check hba1c/lipids. 01/21 f/u studies; appreciate nephrology recs. 01/22 started on dialysis; renal bx pending; 01/23 Hepatorenal syndrome; s/p right renal bx; per GI may need liver bx. Iron deficiency anemia. 01/24 no change; HD per nephrology; 01/25 IgA nephropathy; SEpsis; Coagulopathy; Poor prognosis. 01/26 Poor prognosis- discussed extensively with daughter; Acute resp failure; Hepatic encephalopathy; continue supportive care; Leo Valera MD, PhD.
[2019-01-26] MEDS: PIPERACILLIN/TAZO 2.25 GM 50 ML IV SCH ×2 (13:05→22:00)
[2019-01-26] MEDS ORDERED: PIPER-TAZ 3.375 GM 50 ML IV SCH (14:00)
--- NOTE | 2019-01-26 14:08 | Consultation ---
DATE OF CONSULTATION: 01/26/2019 Critical Care Consultation REASON FOR CONSULT: The patient was rapid response from the floor to ICU for sepsis. Code sepsis was called. CHIEF COMPLAINT: The patient was admitted under Dr. Valera' service with diffuse abdominal pain that was an abdominal distention. This was on 18 of January. The ER notes suggest that the patient had history of cirrhosis and went to doctor's office for ultrasound, but was in a pain and jaundice, so she was sent over here. She was seen by Dr. Chiki Ibarra, who is a citrus fruit colorer. The patient had acute kidney injury. Nephrology was consulted. Hemodialysis has been started. The patient also had paracentesis and 4 L of fluid was removed. She became more obtunded and she is unable to give me any history because of her mental status. She is obtunded, breathing almost 38 to 40 times a minute with blood pressure 80/40 and heart rate in 127. She received 2 L plus of fluid overnight when code sepsis was called. She is not responsive at all on deep sternal rub. She moves her arms, but not localizing. REVIEW OF SYSTEMS: GENERAL: Unable to elicit any because of the patient's mental status. PAST MEDICAL HISTORY: Per the chart, chronic liver disease, cirrhosis. PAST SURGICAL HISTORY: Unremarkable. FAMILY AND SOCIAL HISTORY: She does not smoke. Unsure about the history of alcohol use. According to the note on 01/24, she was awake and alert, and cirrhosis workup is in progress. PHYSICAL EXAMINATION: VITAL SIGNS: Temperature 99.7, pulse of 130, blood pressure 114/61, respiratory rate is 34 to 38 per minute, and O2 saturation 92% on 9 L oxygen. GENERAL: The patient is obtunded, unable to give me any history. Unresponsive. Deep sternal rub, she moves her arm. HEENT: Head is atraumatic and normocephalic. Eyes jaundiced. Oral mucosa is dry. NECK: Supple. CHEST: Clear to auscultation bilaterally. ABDOMEN: Distended. Bowel sounds are audible. EXTREMITIES: No pedal edema. NEUROLOGIC: Obtunded, not responsive. Moving all extremities. MEDICATIONS: Reviewed. LABORATORY DATA: White count of 25,000, her white count on was 16,000 jumped up to 25,000, platelets count 66, and hemoglobin 11.6. Chemistry; sodium 138, potassium 3.9, BUN 36, and creatinine 3.63. Lactic acid was 4.4 on , now it is 11.7. The patient underwent a CT abdomen and pelvis on admission, which showed cirrhotic liver morphology. No evidence of hydronephrosis and sequelae of portal hypertension. Chest x-ray, which was done last night showed low lung volumes and congestion. ASSESSMENT/PLAN: Ms. Guerrier is a 68-year-old female. She has chronic liver disease, cirrhosis, acute kidney injury versus hepatorenal. Nephrology is following the patient, possibly chronic kidney disease. The patient is requiring hemodialysis, was transferred to ICU with code sepsis. The patient is hypotensive, tachycardic with lactic acid of 11.7. Current problems: 1. Septic shock, will require vasopressors. 2. Chronic liver disease and cirrhosis. 3. Etiology of shock is not very clear. The patient is already on Rocephin. The patient underwent ascites and the ascitic fluid is not showing evidence of SBP on 01/18/2019. RECOMMENDATIONS: 1. I will intubate the patient as to protect the airway. The patient is completely obtunded, hypoxic. Vasopressors will be started, Levophed. 2. Vent setting reviewed. Continue the patient on ventilatory support. ABG will be checked and settings will be adjusted accordingly. 3. CT chest, abdomen, and pelvis. 4. ID consultation is recommended. 5. I will broaden the coverage with vancomycin and Zosyn for now. 6. It is unsure why the patient is on prednisone, which is being tapered off, started by Nephrology. I will continue that for now. 7. Hold off on the diuretics. 8. We will also consider CT head without contrast, as the patient is obtunded. The patient's PT is 23.3 and INR is 1.99. We will continue SCD for DVT prophylaxis. 9. The patient is on Protonix. Critical care time spent 55 minutes. MD LEENA Parekh/MODL /[id number]
[2019-01-26] MEDS: OCTREOTIDE ACETATE 0.05 MG/ML AMP SQ SCH ×2 (15:00→22:00)
[2019-01-26] MEDS: ALBUMIN 25% 12.5GM 0.25 GM/ML BTL IV SCH ×3 (16:30→23:58)
--- NOTE | 2019-01-26 16:39 | Progress Note ---
DATE: 01/26/2019 SUBJECTIVE: Ms. Guerrier is a lady with decompensated cirrhosis, acute renal insufficiency on hemodialysis. No clear etiology of her liver disease as of now, except for perhaps long-term use of diabetes medication. She was doing fine about 48 hours ago. All of a sudden yesterday, she made a turn to the worse when she became septic. She was transferred in the ICU, she was intubated, severe hypertensive. The workup of her liver cirrhosis so far is negative. Few lab tests are still pending, which include celiac serologies, antismooth muscle antibody, antimitochondrial antibody. She is maintained on Xifaxan and lactulose for hepatic encephalopathy and she is on Protonix as well. Nothing to add to her care today except to advice about nutrition whether through the NG tube or through a peripheral TPN. If she recover and I hope she does, we well arrange for her to visit with a head sawyer in the [facility] as far as her liver disease. Chiki Ibarra MD RD/MODL /[id number]
[2019-01-26] MEDS: LACTULOSE SYRUP 20 GM/30 ML UDC PO SCH (17:02)
[2019-01-26] MEDS: RIFAXIMIN 550 MG TABLET NG SCH (17:03)
--- NOTE | 2019-01-26 18:24 | Consultation ---
DATE OF CONSULTATION: 01/26/2019 REASON FOR CONSULTATION: To evaluate and assist in treating the patient with leukocytosis with concern for sepsis. Information is gathered from the current medical record. The patient is intubated and sedated. HISTORY OF PRESENT ILLNESS: She is a 68-year-old woman with history of diabetes and hypertension who also has a history of chronic kidney disease with baseline creatinine around 1.7. She has a history of cirrhosis and ascites and was admitted to hospital on January 18, 2019, with reports of increasing abdominal distention with pain and difficulty breathing. There is no report of fevers before presentation. There is report of nausea and vomiting. At the time of her admission, she had a temperature of 97.8 degrees Fahrenheit, her pulse rate of 78, and blood pressure 152/64. She had a paracenteses on January 18, 2019. The ascites fluid was described as cloudy and yellow with 70 WBCs, 73% of which were "other cells," 22% lymphocytes, only 3% neutrophils, there were 128 RBCs. The ascites fluid culture showed no growth. She had a urinalysis on January 25, which showed a cloudy urine with positive esterase, negative nitrite, more than 50 RBCs, more than 50 WBCs, many epithelial cells, and many bacteria as well as many yeast. A urine culture showed no growth from January 19. She had two sets of blood cultures collected on January 25 that are being processed. Respiratory culture has been collected today. A CT of the abdomen and pelvis on January 18 showed cirrhosis with portal hypertension and extensive portosystemic viruses with moderate volume ascites and diffuse anasarca. A CT of her chest today reported was small pneumoperitoneum, related to recent instrumentation. There is bilateral small pleural effusion with bibasilar subsegmental atelectasis and cirrhosis of the liver. The patient has received vancomycin and Zosyn in the past few days. It seems she also received prednisone which I am told by the nursing staff has been discontinued. I am also informed that the patient developed respiratory distress this morning and was intubated. She also apparently developed hypotension and has required vasopressor support. At the time of this evaluation, she has been dialyzed. MEDICAL HISTORY: As reported above. There is no report of CVA or myocardial infarction. SOCIAL HISTORY: No report of recent tobacco, alcohol, or other forms of recreational drug use. FAMILY HISTORY: Positive for diabetes and hypertension. ALLERGIES: SHE HAS NO ALLERGIES LISTED. MEDICATIONS: As reported earlier, she is receiving vancomycin and Zosyn. The rest of her medications are per the medication administration report. REVIEW OF SYSTEMS: The patient is currently intubated and sedated. No acute respiratory distress. No report of vomiting. No report of diarrhea. She has a Claudio in place with very little urine. No report of hematuria. No report of skin rash. PHYSICAL EXAMINATION: GENERAL: She is an elderly woman, currently intubated and sedated. VITAL SIGNS: In the past 24 hours, she has had temperatures up to 99.7 degrees Fahrenheit. Her most recent blood pressure 129/50 with vasopressors, pulse rate up to 121, respiratory rate 20. HEENT: No gross pallor. There is mild icterus. No oropharyngeal lesions. NECK: Supple. Chest is symmetric. Breath sounds are coarse in the lung rodriguez. HEART: Sounds are regular. There is tachycardia without significant murmur. ABDOMEN: Full, soft. There is ascites. Bowel sounds are present. EXTREMITIES: There is pitting edema of the lower extremities without acute erythema. The right IJ dialysis access is in place. There are other peripheral IV accesses. A Claudio catheter has been in place as previously described. LABORATORY DATA: Her creatinine 3.6-3.8 currently, BUN 36-39, and serum lactic acid 11.7-12.6. Her AST of 244, ALT is normal, alkaline phosphatase is normal, total bilirubin 2.4. Her white count 25.7 currently. White count was 9.2 on January 14. On January 24, white count was 9.2. On January 18, white count was 10.6. The viral hepatitis profile from January 21 was nonreactive. HIV test on January 22 was nonreactive. Blood cultures collected January 25 are being processed. Urine culture showed no growth. Ascites fluid culture showed no growth. IMPRESSION: This 68-year-old woman has cirrhosis with ascites. She has developed respiratory failure with hypotension requiring vasopressor support. She has low-grade fevers and significant leukocytosis. The constellation of these findings is consistent with sepsis, although I suspect her leukocytosis may in part be due to recent treatment with steroids. She has had blood cultures drawn. Her urine culture is negative. Respiratory cultures are pending. I agree with empiric coverage with vancomycin and Zosyn, pending culture reports. Monitor temperatures and CBC. Continue ventilator management and supportive care. I have discussed the patient with the ICU staff. I have discussed the patient with the primary physician whom I thanked for the consult and the opportunity to participate in the patient's care. I briefly spoke to the patient's daughter who was just walking out of the ICU when I came in to evaluate the patient. Total care time 45 minutes. MD CARLEEN Au/DAIJA /[id number]
--- NOTE | 2019-01-26 18:24 | NUR ---
Patient displaying shallow, labored breathing with respirations in 30's. Patient intubated by Dr. Mathias at 0830 with respiratory, lay ups assembler and primary RN. Levophed started due to hypotension during intubation. ABG done thirty minutes after intubation. lean manufacturing engineer took patient for CT chest, abdomen and head. Dr. Mathias paged with results of ABG. Dr. Valera called and gave orders for infectious disease consult, Dr. Valera also spoke with patient's daughter about pt's critical condition. Dr. Danii Caldwell paged to inform of patients critical condition and bicarb levels. Dr. Caldwell gave orders for bicarb drip, bicarb IV push, Stat dialysis, and albumin. gave orders for BMP Q4 unless dialysis is being done, then do after. Patient became agitated and pulling at ventilator. Orders for bilateral wrist restraints obtained. [facility] paged and informed of stat dialysis needed. rounded and placed on the phone with dialysis nurse. Dialysis at bedside planning to finish at 2100. BMP and lactic acid to be done when dialysis finished.
[2019-01-26] MEDS ORDERED: VANCOMYCIN HCL 1 GM VIAL ONE (20:33)
[2019-01-26] MEDS ORDERED: SODIUM CHLORIDE 0.9% 250ML 250 ML ONE (20:34)
--- NOTE | 2019-01-26 23:25 | NUR ---
RN spoke to Dr. Mathias at 2305 regarding patient's current status and results of CT done today. RN then spoke to Dr. Valera at 2310 and order obtained to consult surgery. Dr. Tyson Goncalves was paged and return phone call received at 2320. Dr. Goncalves was informed of patient's status/history. He acknowledged the consult and stated that he would round on the patient in the morning.
[2019-01-27] VITALS (61 sets, daily range): BP systolic 63–166; BP diastolic 40–68
[2019-01-27 00:25] LABS: BASOPHILS % 0.1 % (0.0-1.0); HEMATOCRIT 26.3 % (34.2-44.1); HEMOGLOBIN 8.9 g/dL (12.0-16.0); LYMPHOCYTES # (AUTO) 0.5 (1.0-3.2); LYMPHOCYTES % 3.1 % (18.0-39.1); MEAN CORPUSCULAR HEMOGLOBIN 29.8 pg (28-32); MEAN CORPUSCULAR HGB CONC 33.8 g/dL (31-35); MONOCYTES # (AUTO) 0.3 (0.2-0.8); NEUTROPHILS # (AUTO) 14.1 (2.1-6.9); NEUTROPHILS % 94.1 % (38.7-80.0); RED BLOOD COUNT 2.99 x10e6/uL (3.6-5.1); RED CELL DISTRIBUTION WIDTH 15.5 % (11.7-14.4)
[2019-01-27 00:35] LABS: ALBUMIN 2.6 g/dL (3.5-5.0); ANION GAP 19.5 mmol/L (8-16); CALCIUM 7.7 mg/dL (8.4-10.2); CREATININE, SERUM 2.53 mg/dL (0.57-1.11); POTASSIUM 3.5 mmol/L (3.5-5.1)
[2019-01-27 00:43] LABS: PLATELET COUNT 27 x10e3/uL (140-360)
[2019-01-27] MEDS: FENTANYL CITRATE INJ 2,000 MCG in SODIUM CHLORIDE 0.9% 250ML 210 ML IV PRN ×2 (01:45→23:20)
[2019-01-27 05:15] LABS: ANISOCYTOSIS SLIGHT; HYPOCHROMASIA SLIGHT; LYMPHOCYTES % (MANUAL) 3 % (19-48); MONOCYTES % (MANUAL) 2 % (3.4-9.0); NEUTROPHILS % (MANUAL) 93 % (40-74); PROMYELOCYTES % (MANUAL) 2 % (0-0); RBC MORPHOLOGY COMMENT ABNORMAL
[2019-01-27 05:16] LABS: MICROCYTOSIS SLIGHT; PLATELET ESTIMATE MARKEDLY DECREASED; PLATELET MORPHOLOGY COMMENT NORMAL
[2019-01-27] MEDS: ALBUMIN 25% 12.5GM 0.25 GM/ML BTL IV SCH ×3 (05:40→17:23)
[2019-01-27] MEDS: PIPERACILLIN/TAZO 2.25 GM 50 ML IV SCH (05:40)
[2019-01-27 06:01] LABS: BASOPHILS % 0.1 % (0.0-1.0); HEMATOCRIT 24.9 % (34.2-44.1); HEMOGLOBIN 8.6 g/dL (12.0-16.0); LYMPHOCYTES # (AUTO) 0.5 (1.0-3.2); LYMPHOCYTES % 4.1 % (18.0-39.1); MEAN CORPUSCULAR HGB CONC 34.5 g/dL (31-35); MEAN CORPUSCULAR VOLUME 86.8 fL (81-99); MONOCYTES # (AUTO) 0.3 (0.2-0.8); MONOCYTES % 2.5 % (4.4-11.3); NEUTROPHILS # (AUTO) 12.2 (2.1-6.9); NEUTROPHILS % 92.9 % (38.7-80.0); RED BLOOD COUNT 2.87 x10e6/uL (3.6-5.1); RED CELL DISTRIBUTION WIDTH 15.4 % (11.7-14.4)
[2019-01-27 06:05] LABS: PLATELET COUNT 20 x10e3/uL (140-360)
--- NOTE | 2019-01-27 06:15 | Diagnostic Imaging Report ---
EXAMINATION: CHEST SINGLE (PORTABLE) COMPARISON: 01/26/2019 INDICATION: Tube placement ^Intubated ^[id number] ^[id number] ^Y DISCUSSION: Frontal view of the chest obtained at 0554 hours. HEART AND MEDIASTINUM: Stable mild cardiomegaly LINES: Endotracheal tube terminates 3 to 4 cm above the blanco. Enteric tube extends past the diaphragm. Right IJ catheter terminates in the SVC and is stable in position. LUNGS: Low lung volumes and bibasilar atelectasis. Stable eventration of the right diaphragm. Stable pulmonary vascular congestion. PLEURA: No large effusions. No pneumothorax. BONES AND SOFT TISSUES: No focal osseous lesion. The soft tissues are normal. IMPRESSION: 1. Support devices as described above. 2. Low lung volumes and bibasilar atelectasis. Stable pulmonary vascular congestion. Signed by: Dr. Daniel So MD on 01/27/2019 6:11 AM
[2019-01-27] MEDS ORDERED: NOREPINEPHRINE 8 MG/D5W 250 ML 250 ML ONE (06:23)
[2019-01-27] MEDS: NOREPINEPHRINE INJ 4MG/4ML 8 MG in DEXTROSE 5% 250ML 250 ML IV SCH ×3 (06:25→23:00)
[2019-01-27 06:26] LABS: ALBUMIN 2.7 g/dL (3.5-5.0); ALBUMIN/GLOBULIN RATIO 2.1 (0.8-2.0); ANION GAP 19.2 mmol/L (8-16); CALCIUM 7.6 mg/dL (8.4-10.2); CREATININE, SERUM 2.75 mg/dL (0.57-1.11); MAGNESIUM 1.7 MG/DL (1.3-2.1); PHOSPHORUS 3.8 MG/DL (2.3-4.7); POTASSIUM 3.2 mmol/L (3.5-5.1)
[2019-01-27 07:11] LABS: HYPOCHROMASIA MARKED; LYMPHOCYTES % (MANUAL) 2 % (19-48); MONOCYTES % (MANUAL) 4 % (3.4-9.0); NEUTROPHILS % (MANUAL) 94 % (40-74); PLATELET ESTIMATE MODERATELY DECREASED
[2019-01-27 07:12] LABS: PLATELET MORPHOLOGY COMMENT NORMAL
[2019-01-27] MEDS: MIDODRINE HCL 5 MG TABLET PO SCH ×3 (08:04→17:23)
[2019-01-27] MEDS: PANTOPRAZOLE 40 MG 10ML VIAL IV SCH ×2 (08:04→20:47)
[2019-01-27] MEDS: SEVELAMER CARBONATE 800 MG TAB PO SCH ×3 (08:04→17:23)
[2019-01-27] MEDS: RIFAXIMIN 550 MG TABLET NG SCH ×2 (08:05→17:23)
[2019-01-27] MEDS: LACTULOSE SYRUP 20 GM/30 ML UDC PO SCH ×2 (08:05→17:23)
[2019-01-27] MEDS: BROMFED PO SCH ×4 (08:05→21:00)
[2019-01-27] MEDS: OCTREOTIDE ACETATE 0.05 MG/ML AMP SQ SCH ×3 (08:06→21:23)
[2019-01-27] MEDS ORDERED: VANCOMYCIN 750MG/NS 150ML IVPB 150 ML IV PRN (09:00)
[2019-01-27] MEDS ORDERED: PANTOPRAZOLE 40 MG 10ML VIAL IV SCH (09:00)
[2019-01-27] MEDS ORDERED: CALCIUM GLUCONATE 10% INJ 9.3 MEQ in SODIUM CHLORIDE 0.9% 100 ML 100 ML IV ONE (10:00)
[2019-01-27] MEDS ORDERED: POTASSIUM CHLORIDE 20MEQ/100ML 200 ML IV ONE (10:00)
[2019-01-27] MEDS ORDERED: SODIUM BICARBONATE 8.4% 150 ML in DEXTROSE 5% 1,000 ML IV SCH (10:00)
[2019-01-27] MEDS ORDERED: FLUCONAZOLE 400MG/200ML BAG 200 ML IV SCH (11:15)
[2019-01-27] MEDS ORDERED: POTASSIUM CHLORIDE 20MEQ/100ML 200 ML ONE (11:35)
--- NOTE | 2019-01-27 11:42 | Progress Note ---
DATE: 01/27/2019 SUBJECTIVE: Ms. Guerrier had been following her for cirrhosis, decompensated with ascites, which has been tapped recently with finding on the ascitic fluid suggestive of liver nature as a cause of the ascites. She has no risk factor for liver disease except diabetes medication. Full liver workup was done, so far negative. We still have some pending results of antimitochondrial antibody and antismooth muscle antibody. Otherwise, the rest of the liver workup is negative. She has taken a turn to the worse yesterday when she became septic. However, today her outlook is better. She is maintaining an adequate blood pressure. She is afebrile. Her white cell count has dropped to 13,000. She responds to command. Abdomen tense, distended, very quiet bowel sounds. Lab tests, hemoglobin 8.6, hematocrit 24, platelets 20,000. The wrong address clerk, Dr. Mathias is aware of that. She had a CT scan of the abdomen yesterday shows small pneumoperitoneum, could be related to recent liver biopsy or recent paracentesis. From GI standpoint, nothing to add today, to keep her on Xifaxan, keep her on lactulose, and keep her on Protonix. Start using the NG tube for feeding and will follow. Chiki Ibarra MD RD/MODL /[id number]
[2019-01-27 11:44] LABS: ABG HCO3 32 mmol/L (23-28); ABG PCO2 31 mmHg (41-51); ABG PH 7.62 (7.31-7.41); ABG PO2 63 mmHg (80-105)
--- NOTE | 2019-01-27 12:02 | NUR ---
IM-progress note O/N no events IM- progress note O/N no events ROS; no f/c/s/MATTHEWS/cp/sob/back pain/skin rash/diarrhea v/s revd PE tired appearing; intubated anicteric ns1s2 mod bs soft nd; mildly tender abdomen trace leg edema skin dry flat affect a&0x3; mina labs/meds; revd A/P: 68yoF Ascites Cirrhosis ESRD Intractable N/V PLAN s/p paracentesis IV abx prophylactically Antiemetics SCD D/c planning CKD3 due to DM2; now with MELITA; Obesity BMI 35.3. check hba1c/lipids. 01/21 f/u studies; appreciate nephrology recs. 01/22 started on dialysis; renal bx pending; 01/23 Hepatorenal syndrome; s/p right renal bx; per GI may need liver bx. Iron deficiency anemia. 01/24 no change; HD per nephrology; 01/25 IgA nephropathy; SEpsis; Coagulopathy; Poor prognosis. 01/26 Poor prognosis- discussed extensively with daughter; Acute resp failure; Hepatic encephalopathy; continue supportive care; 01/27 supportive care. Leo Valera MD, PhD.
[2019-01-27] MEDS: MICAFUNGIN SODIUM 100 ML IV SCH (12:34)
[2019-01-27] MEDS: DEXTROSE 5%/0.45% SOD CHL 1,000 ML IV SCH (13:35)
--- NOTE | 2019-01-27 14:06 | Diagnostic Imaging Report ---
Exam: Abdominal film Clinical History: Free air and OG-tube placement Comparison: CT abdomen and pelvis 01/26/2019 DISCUSSION: Enteric tube coiled over the left upper quadrant, with the tip projecting over the expected region of the gastric antrum. Tiny foci of pneumoperitoneum described on the comparison CT are not conspicuous by plain radiography. Bowel gas pattern is nonobstructed though evaluation is limited by patient body habitus. IMPRESSION: Tip of enteric tube projects over the expected region of the gastric antrum. Tiny foci of pneumoperitoneum described on the comparison CT are not visualized by plain radiography. Signed by: Dr. Venkat Bautista M.D. on 01/27/2019 2:03 PM
--- NOTE | 2019-01-27 14:30 | NUR ---
Visit made by the Spiritual Care Department Pastoral Visitor, Chemo Wolfe. Pt sleeping soundly. PV provided pastoral presence, prayer, communion, hospitality, and supportive listening to family. Pastoral Visitor informed family of the scope of [employer] and availability. MARIANNE GORMAN President [employer] Spiritual Care Department O: [phone] Pager: [phone] ([phone] number calling from)
[2019-01-27] MEDS: INSULIN GLARGINE 100 UNITS/ML VIAL SQ SCH (14:53)
[2019-01-27 16:45] LABS: ABG PH 7.52 (7.31-7.41)
[2019-01-27 16:46] LABS: ABG HCO3 32 mmol/L (23-28); ABG PCO2 40 mmHg (41-51); ABG PO2 64 mmHg (80-105)
--- NOTE | 2019-01-27 18:20 | NUR ---
Dr. Ordoñez and Dr. Ibarra notified of CT abdomen findings. Dr. Caldwell notified of morning lab results. Bicarb drip decreased, ABG and calcium gluconate and potassium IV replacements ordered. MD also gave orders for dialysis today. Upon rounding Dr. Caldwell informed of ABG results and d/c bicarb drip. MD ordered BMP for [address] Valera and Dr. Ordoñez notified of platelets of 20 and blood cultures growing yeast. Dr. Ordoñez notified that patient had episode of O2 desaturation and respiratory had to increase respirations on vent settings. Dr. Ibarra saw patient and gave orders to start tube feeding NEPRO goal 35cc/hr continuous. KUB done to check for free air in abdomen and OG tube placement for tube feedings. Dr. aVlera notified patient's BG 315, orders given for Lantus 5 units. Infectious disease saw patient and D/c zosyn and vancomycin (MD aware of BC and sputum growing yeast). Orders given for meropenem and daptomycin to start after dialysis is done. Orders for blood cultures tonight and tomorrow (does not mind if they are peripheral sticks or from line). Dr. Tyson Goncalves came to assess patient. Dr. Valera gave orders for Hematology consult. Dr. Dumont's office called to inform of new consult.
--- NOTE | 2019-01-27 19:38 | Progress Note ---
DATE: 01/27/2019 SUBJECTIVE: The patient remains intubated and sedated. She is on vasopressors at a lower dose. No significant changes in respiratory secretions. No respiratory distress. No report of vomiting or diarrhea. No overt medication reaction reported in the past 24 hours. OBJECTIVE: VITAL SIGNS: She had temperatures up to 99.9 degrees Fahrenheit. Her recent blood pressure is 104/59. She is on vasopressors. HEENT: There is no gross pallor. There is mild icterus. No oropharyngeal lesions. NECK: Supple. CHEST: Symmetric. Breath sounds are coarse in the lung rodriguez. HEART: Sounds are regular without a new murmur. ABDOMEN: Soft and somewhat distended. Bowel sounds are present. There is ascites. EXTREMITIES: There is mild generalized edema. No acute erythema of the extremities. LABORATORY DATA: Her white count is 13.1 to 15.0, down from 25.7, her hemoglobin is 8.6, and her platelet count is down to 28,000. Platelet count was 186 on January 18, 103 on January 24. Her blood cultures from January 25 are reported positive with budding yeast. Respiratory culture is showing yeast and gram-positive rods. Chest x-ray shows only atelectasis at the lung bases. IMPRESSION: She has candidemia. She has progressive and severe thrombocytopenia, which may be multifactorial. She is in respiratory failure on a ventilator. She has multiorgan dysfunction including respiratory failure and renal failure. I suspect the most likely source of her bloodstream infection is an infected line, although a GI source cannot be entirely excluded. I doubt a pulmonary source. The thrombocytopenia is probably multifactorial due to sepsis. The effect of medications cannot be entirely excluded. I suggest we discontinue vancomycin, which can also cause thrombocytopenia. Penicillin derivatives can also cause thrombocytopenia. We would discontinue Zosyn and start the patient on Cubicin and Merrem. She has been started on treatment with Mycamine. We should repeat her blood cultures. If more blood cultures are positive, we would need to change her IV access. Continue ventilator management. Continue supportive care. I have discussed the patient with the ICU staff. I have discussed the patient with the primary physician. Total care time 30 minutes. MD CARLEEN Au/DAIJA /[id number]
[2019-01-27] MEDS: MEROPENEM 500MG/ NS 50ML 50 ML IV SCH (20:47)
[2019-01-27] MEDS: DAPTOMYCIN 500mg 10ML 500 MG in SODIUM CHLORIDE 0.9% 100 ML IV SCH (22:10)
[2019-01-27 23:31] LABS: ANION GAP 16.2 mmol/L (8-16); CALCIUM 7.6 mg/dL (8.4-10.2); CREATININE, SERUM 2.2 mg/dL (0.57-1.11); MAGNESIUM 1.6 MG/DL (1.3-2.1); POTASSIUM 3.2 mmol/L (3.5-5.1)
--- NOTE | 2019-01-27 23:45 | NUR ---
Read BMP results to Dr. Caldwell as requested. Orders received for potassium IV.
[2019-01-28] VITALS (37 sets, daily range): BP systolic 70–170; BP diastolic 44–82
[2019-01-28] MEDS ORDERED: POTASSIUM CHLORIDE 10MEQ/100ML 100 ML IV ONE
[2019-01-28] MEDS ORDERED: POTASSIUM CHLORIDE 20MEQ/100ML 100 ML IV ONE
[2019-01-28] MEDS: ALBUMIN 25% 12.5GM 0.25 GM/ML BTL IV SCH ×5 (00:28→23:50)
[2019-01-28] MEDS: NOREPINEPHRINE INJ 4MG/4ML 8 MG in DEXTROSE 5% 250ML 250 ML IV SCH ×2 (01:00→03:00)
[2019-01-28] MEDS: FENTANYL CITRATE INJ 2,000 MCG in SODIUM CHLORIDE 0.9% 250ML 210 ML IV PRN ×3 (01:00→04:00)
[2019-01-28 05:14] LABS: BASOPHILS % 0.1 % (0.0-1.0); HEMOGLOBIN 7.3 g/dL (12.0-16.0); LYMPHOCYTES # (AUTO) 0.5 (1.0-3.2); MEAN CORPUSCULAR HEMOGLOBIN 30.2 pg (28-32); MEAN CORPUSCULAR VOLUME 88.8 fL (81-99); MONOCYTES # (AUTO) 0.3 (0.2-0.8); MONOCYTES % 2.5 % (4.4-11.3); NEUTROPHILS # (AUTO) 10.7 (2.1-6.9); NEUTROPHILS % 92.8 % (38.7-80.0); RED BLOOD COUNT 2.42 x10e6/uL (3.6-5.1); RED CELL DISTRIBUTION WIDTH 15.6 % (11.7-14.4)
[2019-01-28 05:19] LABS: HEMATOCRIT 21.5 % (34.2-44.1); PLATELET COUNT 13 x10e3/uL (140-360)
[2019-01-28 05:24] LABS: INR 4.53
[2019-01-28 05:28] LABS: PROTHROMBIN TIME 43.8 seconds (11.9-14.5)
--- NOTE | 2019-01-28 05:30 | Diagnostic Imaging Report ---
EXAMINATION: CHEST SINGLE (PORTABLE) COMPARISON: Chest x-ray 03/29/2018 INDICATION: Intubated ^intubated DISCUSSION: Frontal view of the chest obtained at 0506 hours. HEART AND MEDIASTINUM: Stable mild cardiomegaly LINES: Endotracheal tube terminates 2 to 3 cm above the blanco. Enteric tube extends past the diaphragm. Right IJ catheter terminates in the SVC. LUNGS: Lung volumes are low with bibasilar atelectasis and prominence of the pulmonary vasculature. PLEURA: No large effusions. No pneumothorax. BONES AND SOFT TISSUES: Stable. IMPRESSION: Support devices as described above. Stable low lung volumes and bibasilar atelectasis. Stable vascular congestion. Signed by: Dr. Daniel So MD on 01/28/2019 5:27 AM
[2019-01-28 05:33] LABS: ALBUMIN/GLOBULIN RATIO 3.8 (0.8-2.0); ANION GAP 15.7 mmol/L (8-16); CALCIUM 7.7 mg/dL (8.4-10.2); CREATININE, SERUM 2.37 mg/dL (0.57-1.11); MAGNESIUM 1.6 MG/DL (1.3-2.1); PHOSPHORUS 2.2 MG/DL (2.3-4.7); POTASSIUM 3.7 mmol/L (3.5-5.1)
[2019-01-28 05:35] LABS: ALBUMIN 3.4 g/dL (3.5-5.0)
--- NOTE | 2019-01-28 05:55 | NUR ---
Notified Dr. Cook of critical lab values. ordered 2 plt STAT to be given first, followed by 1 unit PRBC. Addendum: 01/28/19 at 0557 by Mariya Silverman RN notified of critical lab (PT, plt, and Hgb).
[2019-01-28] MEDS ORDERED: SODIUM CHLORIDE 0.9% 250ML 250 ML IV ONE (06:30)
--- NOTE | 2019-01-28 06:45 | NUR ---
Dr Cook to bedside; orders rec'd.
[2019-01-28 07:02] LABS: LYMPHOCYTES % (MANUAL) 3 % (19-48); MONOCYTES % (MANUAL) 1 % (3.4-9.0); NEUTROPHILS % (MANUAL) 96 % (40-74)
[2019-01-28 07:04] LABS: ANISOCYTOSIS SLIGHT
[2019-01-28 07:05] LABS: HYPOCHROMASIA SLIGHT; POIKILOCYTOSIS SLIGHT
[2019-01-28 07:06] LABS: MICROCYTOSIS SLIGHT; OVALOCYTES FEW
[2019-01-28 07:07] LABS: PLATELET ESTIMATE MARKEDLY DECREASED; RBC MORPHOLOGY COMMENT ABNORMAL
[2019-01-28 07:09] LABS: PLATELET MORPHOLOGY COMMENT NORMAL
--- NOTE | 2019-01-28 07:17 | NUR ---
Updated Kayla Perez (dtr) on patient condition. OBtained consent for transfusion of blood and replacement of HD cath with tunneled HD cath. Report given to Yolanda ARAGON. No acute distress noted.
--- NOTE | 2019-01-28 07:35 | NUR ---
IM-progress note O/N no events IM- progress note O/N no events ROS; no f/c/s/MATTHEWS/cp/sob/back pain/skin rash/diarrhea v/s revd PE tired appearing; intubated anicteric ns1s2 mod bs soft nd; mildly tender abdomen trace leg edema skin dry flat affect a&0x3; mina labs/meds; revd A/P: 68yoF Ascites Cirrhosis ESRD Intractable N/V PLAN s/p paracentesis IV abx prophylactically Antiemetics SCD D/c planning CKD3 due to DM2; now with MELITA; Obesity BMI 35.3. check hba1c/lipids. 01/21 f/u studies; appreciate nephrology recs. 01/22 started on dialysis; renal bx pending; 01/23 Hepatorenal syndrome; s/p right renal bx; per GI may need liver bx. Iron deficiency anemia. 01/24 no change; HD per nephrology; 01/25 IgA nephropathy; SEpsis; Coagulopathy; Poor prognosis. 01/26 Poor prognosis- discussed extensively with daughter; Acute resp failure; Hepatic encephalopathy; continue supportive care; 01/27 supportive care. Bacteremia- abx; f/u cx; Septic Shock- IV abx and pressors as needed. Discussions of POC pending today; 01/28 low plts and low Hb- transfusion pending; d/w daughter by telephone and in person at bedside; she understands that prognosis is poor; She continues to discuss details with pt's and update him. Pt remains Full code. Leo Valera MD, PhD.
[2019-01-28] MEDS: SEVELAMER CARBONATE 800 MG TAB PO SCH ×3 (08:00→16:30)
--- NOTE | 2019-01-28 08:16 | NUR ---
CALLED AND SPOKE WITH DAUGHTER MURRAY [phone] SHE STATES THEY WILL BE TAKING HER MOTHER TO [facility] IN [place], Address: [address], [place] [address], , FAX . AND FOR [facility] IN [place], , W AND FRI SECOND SHIFT IF POSSIBLE. WILL FAX PAPERWORK INTO [facility]. [phone]
[2019-01-28] MEDS: BROMFED PO SCH ×4 (09:00→20:37)
--- NOTE | 2019-01-28 09:09 | NUR ---
Pt transferred from [facility] to ICU over the weekend. Pt placed on PT hold as she has transferred for higher level of care; will need new PT orders to resume skilled PT when appropriate. Thank you. Addendum: 01/28/19 at 0911 by RAMIRO PARSONS SOLDERER DIPPER Amended: Links added.
[2019-01-28] MEDS ORDERED: SODIUM PHOSPHATE 3 MMOL/ML INJ IV ONE (09:15)
--- NOTE | 2019-01-28 09:20 | Progress Note ---
DATE: 01/27/2019 Renal Progress Note SUBJECTIVE: The patient is followed for end-stage renal disease. The patient is dialysis dependent. Kidney biopsy confirmed chronic diabetic nephropathy as well as IgA nephropathy with chronic changes. Final biopsy results are still pending. The preliminary biopsy discussed with the pathologist, was consistent with that. The patient, however, developed acute onset of sepsis and became more unstable, intubated, placed in the ICU. Blood cultures are now growing yeast. The patient has been placed on micafungin and ID is also following the patient. Yesterday, I did (SLED) sustained low efficiency dialysis, which helped the patient. The patient responded. Metabolic acidosis is resolved now, in fact, the patient is now on metabolic alkalotic side. I have now discontinued the bicarb drip. The patient will also have another SLED session today, lactic acid came down to 3.8. The patient's Levophed is slowly being weaned down. She is responsive when sedation is turned off. She is anuric. Intubated and sedated at this time. OBJECTIVE: VITAL SIGNS: Noted blood pressure is 113/50s, 93 pulse, afebrile, and 15 respirations. LUNGS: Minimal rales at the bases bilaterally. CARDIOVASCULAR: S1 and S2. No rub. ABDOMEN: Soft. Positive bowel sounds. Ascites. EXTREMITIES: There is evidence of 1 to 2+ edema in lower extremities. NEUROLOGIC: The patient is sedated at this time, however, does respond once the sedation is turned off. LABORATORY WORK: Sodium is 140, potassium 3.2, chloride 95, bicarb 29, BUN 26, creatinine 2.75, glucose is 279, calcium 7.6, phosphorus 3.8, and magnesium 1.7. Liver function tests are elevated. IMPRESSION AND PLAN: 1. End-stage renal disease. We will continue with (SLED) sustained low-efficiency dialysis treatment today 4 hours. We will attempt to do some ultrafiltration today since the patient is starting to get on the volume positive side and we will make further recommendations. 2. Hypotension, improving. Continue midodrine, subcu octreotide, IV albumin. Correction of metabolic acidosis has also helped significantly. Levophed has been weaned down. We will continue to monitor closely. 3. Hypocalcemia, has been replaced. We will continue to monitor closely. 4. Hypokalemia. We will replace cautiously and we will also do dialysis and make further recommendations. 5. Yeast septicemia. We will continue with empiric IV antibiotics, micafungin as per ID's recommendations and we will continue to monitor for clinical improvement. 6. Shock liver, likely contribution from acute onset of sepsis. There is also chronic liver cirrhosis and GI is following the patient for this. Thank you once again. Casey Caldwell MD TH/MODL /[id number]
[2019-01-28 09:50] LABS: INR 4.22
[2019-01-28 09:51] LABS: PROTHROMBIN TIME 41.5 seconds (11.9-14.5)
[2019-01-28] MEDS: RIFAXIMIN 550 MG TABLET NG SCH ×2 (09:52→17:15)
[2019-01-28] MEDS: MIDODRINE HCL 5 MG TABLET PO SCH ×3 (09:52→15:30)
[2019-01-28] MEDS: LACTULOSE SYRUP 20 GM/30 ML UDC PO SCH ×3 (09:52→20:37)
[2019-01-28] MEDS: OCTREOTIDE ACETATE 0.05 MG/ML AMP SQ SCH ×3 (09:52→20:37)
[2019-01-28] MEDS: DEXTROSE 5%/0.45% SOD CHL 1,000 ML IV SCH ×2 (09:52→23:51)
[2019-01-28] MEDS: PANTOPRAZOLE 40 MG 10ML VIAL IV SCH ×2 (09:52→20:02)
[2019-01-28] MEDS ORDERED: CALCIUM GLUCONATE 10% INJ 9.3 MEQ in SODIUM CHLORIDE 0.9% 100 ML 100 ML IV ONE (10:00)
[2019-01-28] MEDS ORDERED: SODIUM PHOSPHATE 10 MMOL in SODIUM CHLORIDE 0.9% 250ML 250 ML IV ONE (10:30)
--- NOTE | 2019-01-28 11:55 | Diagnostic Imaging Report ---
EXAM: Focused Ultrasound Evaluation of the Abdomen INDICATION: ^ascites ^[id number] ^[id number] COMPARISON: None TECHNIQUE: Clark scale images of the four quadrants of the abdomen were obtained. FINDINGS/IMPRESSION: Moderate volume ascites. Signed by: Cora Blanc MD on 01/28/2019 11:52 AM
[2019-01-28] MEDS: MICAFUNGIN SODIUM 100 ML IV SCH (12:04)
--- NOTE | 2019-01-28 14:41 | NUR ---
[facility] [phone] SHE STATES SHE IS SUBMITTING EVERYTHING TO THE [facility] AND INSURANCE. CURRENTLY THE [facility] HAS A MONDAY, MONDAY AND MONDAY 3RD SHIFT AVAILABLE BUT WITH THE PT BEING IN ICU WITH INTUBATION AND SEDATION, BY THE TIME SHE IS STABILIZED THEY MAY HAVE 2ND SHIFT AVAILABLE. HER CASE MANGER WITH [employer] WILL BE DESTIN TUTTLE [phone] [phone]. IF THERE ARE ANY CHANGES IN CONDITION PLEASE NOTIFY [facility] TO KEEP IN THE LOOP ABOUT PROJECTED DISCHARGE FOR THEIR SERVICE.
[2019-01-28 18:56] LABS: BASOPHILS % 0.1 % (0.0-1.0); EOSINOPHILS % 0.1 % (0.0-6.0); HEMATOCRIT 25.4 % (34.2-44.1); HEMOGLOBIN 8.3 g/dL (12.0-16.0); LYMPHOCYTES # (AUTO) 0.5 (1.0-3.2); MEAN CORPUSCULAR HEMOGLOBIN 29.4 pg (28-32); MEAN CORPUSCULAR HGB CONC 32.7 g/dL (31-35); MEAN CORPUSCULAR VOLUME 90.1 fL (81-99); MONOCYTES # (AUTO) 0.4 (0.2-0.8); MONOCYTES % 2.5 % (4.4-11.3); NEUTROPHILS # (AUTO) 15.4 (2.1-6.9); NEUTROPHILS % 93.8 % (38.7-80.0); RED BLOOD COUNT 2.82 x10e6/uL (3.6-5.1); RED CELL DISTRIBUTION WIDTH 15.3 % (11.7-14.4)
[2019-01-28 19:01] LABS: PLATELET COUNT 64 x10e3/uL (140-360)
--- NOTE | 2019-01-28 19:18 | Progress Note ---
DATE: 01/28/2019 SUBJECTIVE: The patient remains intubated, resting in bed. She opens her eyes to stimulation. The nursing staff reported that the sedation was turned off. The patient is off vasopressors. She is in no acute distress. She remains critically ill, but nontoxic. OBJECTIVE: VITAL SIGNS: In the past 24 hours, maximum temperature recorded is 98.9 degrees Fahrenheit. Today, she has had temperatures up to 99 degrees. All most recent blood pressure is 116/63, pulse rate 89, and respiratory rate 20. HEENT: Shows no gross pallor. There is no obvious icterus. No oropharyngeal lesions. NECK: Supple. CHEST: Symmetric. Breath sounds are coarse in the lung rodriguez. HEART: Sounds are regular. There is no new murmur. ABDOMEN: Mildly distended. There is ascites. No significant tenderness elicited. EXTREMITIES: No acute erythema of her extremities. LABORATORY DATA: Her white count is 11.5, hemoglobin 7.3, and platelet count is 218,000. Serum creatinine is 2.3. Liver function tests are abnormal with AST currently 706, ALT 243, alkaline phosphatase 73, total bilirubin 5.2. Blood cultures from January 25 reported yeast. Repeat blood cultures from January 27 and are being processed. Respiratory culture from January 26 is also growing yeast. A urine culture from January 19, showed no growth. Ascites fluid culture from January 18 showed no growth. Chest x-ray from today reports low lung volumes with bibasilar atelectasis. IMPRESSION: She is in septic shock. She has candidemia. She is in respiratory failure on a ventilator. She has end-stage renal disease. She has cirrhosis with ascites. She has required vasopressors, which has been discontinued for now. I suggest continue all current antimicrobials. Monitor temperature, CBC, renal function. Follow up on all cultures. Continue ventilator management. Continue other supportive care. I have discussed with the patient and with the ICU staff. Riky Heredia MD ATF/MODL /[id number]
[2019-01-28] MEDS ORDERED: VANCOMYCIN 750MG/NS 150ML IVPB 150 ML IV SCH (20:00)
[2019-01-28 20:04] LABS: INR 2.5; PARTIAL THROMBOPLASTIN TIME 46.4 seconds (23.8-35.5); PROTHROMBIN TIME 27.7 seconds (11.9-14.5)
[2019-01-28] MEDS: MEROPENEM 500MG/ NS 50ML 50 ML IV SCH (20:28)
[2019-01-28] MEDS: INSULIN REGULAR, HUMAN 100 UNIT/1 ML 3ML VIAL SQ SCH (20:28)
[2019-01-28 22:06] LABS: ALBUMIN 3.8 g/dL (3.5-5.0); ALBUMIN/GLOBULIN RATIO 3.5 (0.8-2.0); ANION GAP 19.3 mmol/L (8-16); CALCIUM 7.9 mg/dL (8.4-10.2); CREATININE, SERUM 2.83 mg/dL (0.57-1.11); POTASSIUM 3.3 mmol/L (3.5-5.1)
[2019-01-28 22:18] LABS: BILIRUBIN,DIRECT 3.7 mg/dL (0.0-0.5)
--- NOTE | 2019-01-28 22:19 | Progress Note ---
DATE: 01/28/2019 I have been following Ms. Guerrier for cirrhosis decompensated, new onset ascites, unclear etiology. She had full liver workup, which including antimitochondrial antibody, antismooth muscle antibody, JOHN, celiac disease screening, hepatitis profile, HIV, ceruloplasmin, iron saturation, fasting lipid, TSH, alpha-fetoprotein, alpha-1 antitrypsin, all were not remarkable. The only etiology so far is perhaps due to her long use of diabetes medication. Her ascitic fluid when was tapped was suggestive of liver etiology. The gradient was high and the total protein was low. Recently, she become septic. She was transferred to the ICU. She was intubated. She is maintained on Xifaxan, lactulose, Protonix, and of course antibiotics. She has had no bowel movement recorded since the of this month. Her liver enzymes have increased drastically in the past 72 hours, most likely due to ischemic liver. They are coming down nicely today. Her AST 700 down from 1300 and ALT 243 down from 300. Her bilirubin about 5. She is awake, but not alert nor oriented. She is still intubated. Temperature 99 and blood pressure 141/88. Her abdomen distended, tense. From GI standpoint regarding her liver, nothing to be added at this point. According to the nursing staff, she will be start getting fed through her NG tube tomorrow. I will continue to watch the ALT and AST and ordered a fractionated bilirubin. She has a low platelet count could be related to her recent sepsis. She had transfused 1 unit of FFP and 2 units of platelets. I hope when she recovers, [facility] for her decompensated cirrhosis. In addition, also tomorrow I am ordering PT and PTT on her and I increased her lactulose to three times a day. Chiki Ibarra MD RD/ALYSSAL /[id number]
--- NOTE | 2019-01-28 22:28 | NUR ---
Page out to Dr. Arciniega regarding lactic level increasing from previous.
[2019-01-29] VITALS (25 sets, daily range): BP systolic 87–138; BP diastolic 44–78
--- NOTE | 2019-01-29 05:25 | Progress Note ---
DATE: 01/28/2019 Renal Progress Note SUBJECTIVE: Followed for end-stage renal disease, tolerating SLED treatment, had [id number] SLED treatment yesterday and the day before. The patient is hemodynamically more stable. Last blood pressure today is 105/62. The patient saturating 98% to 100% on FiO2 50%, appears to be stable on the vent. She is responsive. Anuric at this time. No current urgent need for dialysis today. On IV micafungin for the fungemia. OBJECTIVE: VITAL SIGNS: Blood pressure is 105/62, 85 heart rate, and 19 respirations. LUNGS: Minimal rales at the bases. CARDIOVASCULAR: S1 and S2. No rub. ABDOMEN: Soft. Diminished bowel sounds. Ascites present. EXTREMITIES: 1+ edema. LABORATORY DATA: H and H 7.3 and 21.5. Chemistry; sodium 137, potassium 3.7, chloride 95, bicarb of 30, BUN 23, creatinine is 2.37, magnesium is 1.6, phosphorus 2.7, and calcium 7.7. IMPRESSION AND PLAN: 1. End-stage renal disease. We will hold off dialysis today. Likely, we will do dialysis treatment again tomorrow. The patient is more hemodynamically stable. Metabolic acidosis has resolved. Continue to monitor closely. 2. Hypotension, improved, off the Levophed now. We will continue to monitor closely and make further recommendations. 3. Hypocalcemia. We will give 2 g of calcium gluconate. 4. Hypophosphatemia. We will replace with sodium phosphate or potassium phosphate. 5. Fungemia. Plan would be as per ID recommendations, on micafungin IV. Casey Caldwell MD /MODL /[id number]
[2019-01-29] MEDS: ALBUMIN 25% 12.5GM 0.25 GM/ML BTL IV SCH ×2 (05:31→11:09)
[2019-01-29 05:38] LABS: BASOPHILS % 0.1 % (0.0-1.0); EOSINOPHILS % 0.2 % (0.0-6.0); HEMOGLOBIN 8.8 g/dL (12.0-16.0); LYMPHOCYTES # (AUTO) 0.5 (1.0-3.2); LYMPHOCYTES % 3.5 % (18.0-39.1); MEAN CORPUSCULAR HGB CONC 33.8 g/dL (31-35); MEAN CORPUSCULAR VOLUME 88.7 fL (81-99); MONOCYTES # (AUTO) 0.4 (0.2-0.8); MONOCYTES % 2.9 % (4.4-11.3); NEUTROPHILS # (AUTO) 13.3 (2.1-6.9); NEUTROPHILS % 92.5 % (38.7-80.0); PLATELET COUNT 64 x10e3/uL (140-360); RED BLOOD COUNT 2.93 x10e6/uL (3.6-5.1); RED CELL DISTRIBUTION WIDTH 15.7 % (11.7-14.4)
[2019-01-29 05:53] LABS: ALBUMIN 3.9 g/dL (3.5-5.0); ALBUMIN/GLOBULIN RATIO 3.3 (0.8-2.0); ANION GAP 15.5 mmol/L (8-16); CALCIUM 7.9 mg/dL (8.4-10.2); CREATININE, SERUM 3.05 mg/dL (0.57-1.11); MAGNESIUM 1.7 MG/DL (1.3-2.1); PHOSPHORUS 2.1 MG/DL (2.3-4.7); POTASSIUM 3.5 mmol/L (3.5-5.1)
[2019-01-29] MEDS: INSULIN REGULAR, HUMAN 100 UNIT/1 ML 3ML VIAL SQ SCH ×4 (06:25→23:32)
[2019-01-29] MEDS: INSULIN GLARGINE 100 UNITS/ML VIAL SQ SCH (07:56)
[2019-01-29] MEDS: SEVELAMER CARBONATE 800 MG TAB PO SCH (07:57)
--- NOTE | 2019-01-29 08:09 | Diagnostic Imaging Report ---
Chest, portable AP view History: Intubated Comparison: 01/28/2019 IMPRESSION: The heart is stable size and configuration. The tip of the endotracheal tube terminates approximately 1.8 cm above the blanco. Right IJ catheter terminates in the distal SVC. The lung volumes are low. Bibasilar atelectasis is present. No sizable pleural effusion is identified. There is no pneumothorax. Signed by: Rolando Dial MD on 01/29/2019 8:06 AM
[2019-01-29] MEDS: NOREPINEPHRINE INJ 4MG/4ML 8 MG in DEXTROSE 5% 250ML 250 ML IV SCH (08:45)
[2019-01-29] MEDS: OCTREOTIDE ACETATE 0.05 MG/ML AMP SQ SCH ×3 (09:00→20:12)
[2019-01-29] MEDS: PANTOPRAZOLE 40 MG 10ML VIAL IV SCH ×2 (09:00→19:59)
[2019-01-29] MEDS: BROMFED PO SCH ×4 (09:00→19:59)
[2019-01-29] MEDS: RIFAXIMIN 550 MG TABLET NG SCH ×2 (09:00→18:38)
[2019-01-29] MEDS: LACTULOSE SYRUP 20 GM/30 ML UDC PO SCH (09:00)
[2019-01-29] MEDS: MIDODRINE HCL 5 MG TABLET PO SCH ×3 (09:00→15:39)
[2019-01-29] MEDS ORDERED: HEPARIN SOD (PORCINE) 1000 UNIT/ML SDV ONE (09:10)
[2019-01-29] MEDS ORDERED: SODIUM PHOSPHATE 3 MMOL/ML INJ IV ONE (11:00)
[2019-01-29] MEDS ORDERED: PHYTONADIONE 10 MG/ML AMP IV ONE (11:45)
[2019-01-29] MEDS ORDERED: POTASSIUM PHOSPHATE 10 MM in SODIUM CHLORIDE 0.9% 250ML 250 ML IV ONE (12:00)
[2019-01-29] MEDS ORDERED: SODIUM PHOSPHATE 10 MMOL in SODIUM CHLORIDE 0.9% 250ML 250 ML IV ONE (12:00)
[2019-01-29] MEDS ORDERED: PHYTONADIONE 10MG/ML 10 MG in SODIUM CHLORIDE 0.9% 50ML 50 ML IV ONE (12:00)
--- NOTE | 2019-01-29 12:00 | NUR ---
IM-progress note O/N no events IM- progress note O/N no events ROS; no f/c/s/MATTHEWS/cp/sob/back pain/skin rash/diarrhea v/s revd PE tired appearing; intubated anicteric ns1s2 mod bs soft nd; mildly tender abdomen trace leg edema skin dry flat affect a&0x3; mina labs/meds; revd A/P: 68yoF Ascites Cirrhosis ESRD Intractable N/V PLAN s/p paracentesis IV abx prophylactically Antiemetics SCD D/c planning CKD3 due to DM2; now with MELITA; Obesity BMI 35.3. check hba1c/lipids. 01/21 f/u studies; appreciate nephrology recs. 01/22 started on dialysis; renal bx pending; 01/23 Hepatorenal syndrome; s/p right renal bx; per GI may need liver bx. Iron deficiency anemia. 01/24 no change; HD per nephrology; 01/25 IgA nephropathy; SEpsis; Coagulopathy; Poor prognosis. 01/26 Poor prognosis- discussed extensively with daughter; Acute resp failure; Hepatic encephalopathy; continue supportive care; 01/27 supportive care. Bacteremia- abx; f/u cx; Septic Shock- IV abx and pressors as needed. Discussions of POC pending today; 01/28 low plts and low Hb- transfusion pending; d/w daughter by telephone and in person at bedside; she understands that prognosis is poor; She continues to discuss details with pt's and update him. Pt remains Full code. 01/29 Maureen glabrata Fungemia- on micafungin; LFTs continue to improve; receiving HD today, with plans for paracentesis today; Pt appears more alert today; cont current care; Vent weaning per pulm; d/w in detail with pt's daughter by telephone; time spent in patient care>35mins. Leo Valera MD, PhD.
[2019-01-29] MEDS: MICAFUNGIN SODIUM 100 ML IV SCH (12:49)
--- NOTE | 2019-01-29 14:58 | NUR ---
1.5 L off with HD, Radiologist to bedside for paracentesis, time out performed.
--- NOTE | 2019-01-29 15:35 | Progress Note ---
DATE: 01/29/2019 SUBJECTIVE: I have been following her for decompensated cirrhosis with ascites. She had a full liver workup during this admission included hepatitis profile, HIV, JOHN, antimitochondrial antibody, antismooth muscle antibody, several plasm, iron saturation, alpha-fetoprotein, alpha-1 antitrypsin, celiac screening, TSH all were normal. So far assume the reason of her decompensated cirrhosis is long-term use of diabetes medication. She has no known history of alcohol abuse. She had paracentesis done few days after her admission, which showed no total protein and the ascitic fluid with high gradient suggestive liver etiology less likely nephrotic or cardiogenic. During her course, she become septic, intubated, transferred to the ICU. Currently suffering from respiratory failure or kidney failure, and she was found to have Maurene infection. According to Infectious Disease, the source could be an infected line or a GI source. Recent CT scan of the abdomen shows small pneumoperitoneum, which could be related to the previous done paracentesis or previously done liver biopsy. OBJECTIVE: GENERAL: She is awake. She follows command. VITAL SIGNS: Her temperature 98, blood pressure 130/64, and pulse 90. ABDOMEN: Very tense and distended. EXTREMITIES: She had edema throughout her abdomen in both extremities. Currently, she is undergoing paracentesis and I requested the fluid to be sent for total protein, albumin, cytology, culture, cell count and differential. Infectious Disease is following patient. Hematology is following the patient as well. LABORATORY DATA: Recent labs show calcium 7.9, magnesium 1.7, BUN 36, creatinine 3, sodium 138, potassium 3.5. Her white cell count dropped to 14,000, hemoglobin 8.8, hematocrit 26, platelets 64. PT 27, high INR and PTT 46. Her total bilirubin 6.8, direct 3.7, indirect 3.1. AST dropped to 245, ALT dropped to 152, and alkaline phosphatase is normal. Her liver enzyme more likely related to ischemic liver. She is recovering. ASSESSMENT/PLAN: In addition of course, sepsis is contributing to the increase in PT and the bilirubin. Hematology also following the patient and started her on vitamin K today. Nothing to add from GI standpoint today. We will continue to monitor. Chiki Ibarra MD RD/MODL /[id number]
--- NOTE | 2019-01-29 15:35 | Progress Note ---
DATE: 01/29/2019 Renal Progress Note SUBJECTIVE: Followed for end-stage renal disease, tolerating SLED treatment now every other day. The patient's metabolic acidosis is resolved as a result of the dialysis. The patient has end-stage renal disease secondary to both IgA nephropathy and diabetic nephropathy, both are advanced age based on the final kidney biopsy that has resulted now. There is also suggestion on the kidney biopsy and by speaking with the pathologist that IgA nephropathy can be a secondary cause for liver cirrhosis. The patient remains intubated; however, she is responsive. She is tolerating SLED treatment. She still remains aneuric. Remains on the vent; however, likely will be weaned off the vent soon. OBJECTIVE: VITAL SIGNS: Have been noted. Blood pressure is low 100s to 60s, 84 heart rate, 14 respirations, 98% O2 sats on about 45% FiO2. LUNGS: Mostly clear to auscultation bilaterally. CARDIOVASCULAR: S1, S2. No rub. ABDOMEN: Soft. Positive bowel sounds. There is ascites present. EXTREMITIES: Evidence of 1 to 2+ edema. LABORATORY DATA: White count 14, H and H 8.8 and 26.0, and platelets of 64. Chemistries today, sodium 138, potassium 3.5, chloride 96, bicarb 30, BUN 36, creatinine 3.05, phosphorus is 2.1, and magnesium is 1.7, calcium is 7.9. Liver function tests are improving also. Albumin is up to 3.9. IMPRESSION AND PLAN: 1. End-stage renal disease. We will continue to provide SLED treatment until patient is able to tolerate conventional dialysis. Hopefully can hold off dialysis tomorrow and place on a Monday, Monday, Monday schedule. Anticipated next dialysis will be on Monday. If the patient does require fluid removal, then may do ultrafiltration only tomorrow or every other day as opposed to the regular dialysis sessions. We will continue to monitor closely with you. 1. Hypotension is resolved now. Continue the midodrine. Continue the subcu octreotide IV albumin since the patient has likely a component of hepatorenal syndrome. We will continue to monitor closely and make further recommendations. 2. Metabolic acidosis, resolved with dialysis. The patient is off bicarb drip also. We will continue to monitor closely and make further recommendations. 3. Mild hypokalemia will be corrected with dialysis. 4. Hypocalcemia. We will give 2 g of calcium gluconate and make further recommendations. 5. Hypophosphatemia. We will discontinue the Renvela and replace with sodium phosphate 10 millimoles IV. 6. Shock liver, improving. LFTs overall have a baseline chronic cirrhosis, which could be secondary to IgA nephropathy. 7. Mild degree of edema/fluid overload. We will ultrafilter 2 L as tolerated by blood pressure. 8. Overall poor still remains grim. Casey Caldwell MD TH/MODL /[id number]
[2019-01-29 15:40] LABS: BODY FLUID APPEARANCE CLOUDY; BODY FLUID COLOR STRAW; BODY FLUID TYPE PERITONEAL
--- NOTE | 2019-01-29 15:47 | Diagnostic Imaging Report ---
Ultrasound guided paracentesis, 01/29/2019. Clinical History: Ascites. Sedation: None. Radiologist: Rolando Dial MD Freelance Photographer: None. Estimated Blood Loss: < 1 cc. Specimen: 6500 cc of dark yellow fluid, samples sent to laboratory. Technique: Informed consent was obtained. The risks of pain, bleeding, infection, bowel perforation, injury to adjacent structures, and adverse medication reactions were discussed with the patient's family. After informed consent was obtained, the patient's abdomen was scanned. The right lower quadrant of the abdomen was selected for paracentesis. After the largest fluid pocket area was marked, and the anterior abdominal wall was evaluated with color Doppler to exclude presence of blood vessels traversing the area, the skin was prepped and draped in the usual sterile manner. After local anesthesia was achieved with 1% lidocaine, a 5 Liberian centesis catheter was advanced into the peritoneal cavity under ultrasound guidance. After completion of drainage, the catheter was removed. There was no evidence of complication. Impression: Successful ultrasound guided paracentesis. 6500 mL of dark yellow ascites aspirated. Signed by: Rolando Dial MD on 01/29/2019 3:44 PM
--- NOTE | 2019-01-29 17:10 | Progress Note ---
DATE: 01/29/2019 SUBJECTIVE: The patient remains intubated. She is off vasopressors and sedation with systolic blood pressures currently in the upper 80s. She is in no acute distress. The nursing staff reports that she is responsive and follows commands. There is no report of vomiting or diarrhea. No overt medication reaction reported. In the past 24 hours, maximum temperature recorded was 99.2 degrees Fahrenheit. OBJECTIVE: VITAL SIGNS: Her most recent temperature is 98.7. Blood pressure has been up to 130/64 today. Systolic blood pressure currently in the upper 80s. HEENT: She has no gross pallor. No obvious icterus. No oropharyngeal lesions. NECK: Supple. CHEST: Symmetric. Breath sounds are less coarse in the lung rodriguez. HEART: Sounds are regular. There is no new murmur. ABDOMEN: Full, soft, there is ascites. No significant tenderness elicited. EXTREMITIES: No acute erythema of the extremities. LABORATORY DATA: Her white count on January 28 ranged from 11.5 to 16.4. Her white count currently 14.3, hemoglobin 8.8, and platelet count 64,000. Serum creatinine is 3.0. January 25 blood cultures grew Maureen glabrata. Sputum culture grew yeast on January 26. January 27, two sets of blood culture showed no growth. January 28 blood culture is reported positive with yeast. Ascites fluid sent on January 29 is being processed. January 18 ascites fluid culture was negative. IMPRESSION: She has sustained candidemia and concerning IV access may be infected. I doubt the peritoneal fluid may be the source of her bloodstream infection. The peritoneal fluid culture from January 18 showed no growth except if she developed Maureen peritonitis after January 18. I suggest we should consider changing her IV access. At this point, I will not advise placing at tunneled catheter and not a temporary dialysis access should be placed until the bloodstream infection clears. We should continue to recheck her blood cultures until negative. Continue all current antimicrobials. Continue ventilator management. Continue other supportive care. I have discussed the patient with the family at the bedside. I have discussed the patient with the ICU staff. Total care time 30 minutes. Riky Serge Heredia MD ATF/MODL /[id number]
[2019-01-29 17:25] LABS: RBC,BODY FLUID 591 cells/uL; WBC,BODY FLUID 278 cells/uL
[2019-01-29 19:00] LABS: LYMPHOCYTES,BODY FLUID 3 %; MONO/MACROPHG,BODY FLUID 5 %; NEUTROPHILS,BODY FLUID 92 %
[2019-01-29] MEDS: DAPTOMYCIN 500mg 10ML 500 MG in SODIUM CHLORIDE 0.9% 100 ML IV SCH (20:12)
[2019-01-29] MEDS: MEROPENEM 500MG/ NS 50ML 50 ML IV SCH (20:12)
[2019-01-30] VITALS (29 sets, daily range): BP systolic 81–137; BP diastolic 57–86
[2019-01-30 05:04] LABS: BASOPHILS # (AUTO) 0.1 (0.0-0.1); BASOPHILS % 0.3 % (0.0-1.0); EOSINOPHILS # (AUTO) 0.1 (0.0-0.4); EOSINOPHILS % 0.2 % (0.0-6.0); HEMATOCRIT 29.8 % (34.2-44.1); HEMOGLOBIN 9.9 g/dL (12.0-16.0); LYMPHOCYTES # (AUTO) 0.7 (1.0-3.2); LYMPHOCYTES % 2.2 % (18.0-39.1); MEAN CORPUSCULAR HEMOGLOBIN 29.9 pg (28-32); MEAN CORPUSCULAR HGB CONC 33.2 g/dL (31-35); MONOCYTES # (AUTO) 0.9 (0.2-0.8); MONOCYTES % 2.8 % (4.4-11.3); NEUTROPHILS # (AUTO) 29.7 (2.1-6.9); NEUTROPHILS % 92.8 % (38.7-80.0); RED BLOOD COUNT 3.31 x10e6/uL (3.6-5.1); RED CELL DISTRIBUTION WIDTH 16.5 % (11.7-14.4)
[2019-01-30 05:06] LABS: PLATELET COUNT 45 x10e3/uL (140-360)
[2019-01-30 05:17] LABS: ALBUMIN 3.2 g/dL (3.5-5.0); ALBUMIN/GLOBULIN RATIO 3.2 (0.8-2.0); ANION GAP 14.7 mmol/L (8-16); CREATININE, SERUM 2.54 mg/dL (0.57-1.11); MAGNESIUM 1.5 MG/DL (1.3-2.1); PHOSPHORUS 2.5 MG/DL (2.3-4.7); POTASSIUM 3.7 mmol/L (3.5-5.1)
[2019-01-30] MEDS: INSULIN REGULAR, HUMAN 100 UNIT/1 ML 3ML VIAL SQ SCH ×3 (05:22→17:45)
--- NOTE | 2019-01-30 07:04 | NUR ---
IM-progress note O/N no events IM- progress note O/N no events ROS; no f/c/s/MATTHEWS/cp/sob/back pain/skin rash/diarrhea v/s revd PE tired appearing; intubated atraumatic ns1s2 mod bs soft nd; mildly tender abdomen trace leg edema skin dry flat affect alert; follows simple commands; mina labs/meds; revd A/P: 68yoF Ascites Cirrhosis ESRD Intractable N/V PLAN s/p paracentesis IV abx prophylactically Antiemetics SCD D/c planning CKD3 due to DM2; now with MELITA; Obesity BMI 35.3. check hba1c/lipids. 01/21 f/u studies; appreciate nephrology recs. 01/22 started on dialysis; renal bx pending; 01/23 Hepatorenal syndrome; s/p right renal bx; per GI may need liver bx. Iron deficiency anemia. 01/24 no change; HD per nephrology; 01/25 IgA nephropathy; SEpsis; Coagulopathy; Poor prognosis. 01/26 Poor prognosis- discussed extensively with daughter; Acute resp failure; Hepatic encephalopathy; continue supportive care; 01/27 supportive care. Bacteremia- abx; f/u cx; Septic Shock- IV abx and pressors as needed. Discussions of POC pending today; 01/28 low plts and low Hb- transfusion pending; d/w daughter by telephone and in person at bedside; she understands that prognosis is poor; She continues to discuss details with pt's and update him. Pt remains Full code. 01/29 Maureen glabrata Fungemia- on micafungin; LFTs continue to improve; receiving HD today, with plans for paracentesis today; Pt appears more alert today; cont current care; Vent weaning per pulm; d/w in detail with pt's daughter by telephone; time spent in patient care>35mins. 01/30 V.poor prognosis; T.bili 9.2; renal fn poor; Multiorgan dysfunction/failure. Remains on 45% O2 vent; more alert; had thoracentesis with >6L removed. d/w daughter by telephone am. Leo Valera MD, PhD.
[2019-01-30 07:07] LABS: BAND NEUTROPHILS % (MANUAL) 2 %; LYMPHOCYTES % (MANUAL) 4 % (19-48); MONOCYTES % (MANUAL) 3 % (3.4-9.0); NEUTROPHILS % (MANUAL) 91 % (40-74)
[2019-01-30 07:09] LABS: ANISOCYTOSIS SLIGHT; MICROCYTOSIS SLIGHT; POIKILOCYTOSIS SLIGHT
[2019-01-30 07:10] LABS: BURR CELLS SLIGHT; TEAR DROP CELLS FEW
[2019-01-30 07:11] LABS: HELMET CELLS RARE; PLATELET ESTIMATE MODERATELY DECREASED; RBC MORPHOLOGY COMMENT ABNORMAL
[2019-01-30 07:12] LABS: PLATELET MORPHOLOGY COMMENT NORMAL
[2019-01-30] MEDS: BROMFED PO SCH ×4 (07:58→20:50)
[2019-01-30] MEDS: PANTOPRAZOLE 40 MG 10ML VIAL IV SCH ×2 (07:58→21:00)
[2019-01-30] MEDS: RIFAXIMIN 550 MG TABLET NG SCH ×2 (07:58→17:00)
[2019-01-30] MEDS: MIDODRINE HCL 5 MG TABLET PO SCH ×3 (07:58→16:00)
[2019-01-30] MEDS: OCTREOTIDE ACETATE 0.05 MG/ML AMP SQ SCH ×3 (07:59→21:00)
[2019-01-30] MEDS: INSULIN GLARGINE 100 UNITS/ML VIAL SQ SCH (08:01)
[2019-01-30] MEDS: NOREPINEPHRINE INJ 4MG/4ML 8 MG in DEXTROSE 5% 250ML 250 ML IV SCH (08:45)
--- NOTE | 2019-01-30 09:00 | NUR ---
DR HARGROVE ORDER EXTUBATED,PLACED PT ON NC 4L,O2 SATS 94%,RES RATE 20.NO RES DISTRESS AT THIS TIME.
--- NOTE | 2019-01-30 10:45 | NUR ---
ASSESSMENT: Spiritual concern Pt's and daughter hopeful for improvement in pt's health. Pt's daughter states her avionics systems engineer is "on the way" to anoint her mother. Intervention: Provided empathic listening and hospitality. Provided information on how to reach display director, if needed. Outcome: Pt's family expressed appreciation for visit. MARIANNE GORMAN [place] Spiritual Care Department O: [phone] Pager: [phone] ([phone] number calling from)
[2019-01-30] MEDS: MICAFUNGIN SODIUM 100 ML IV SCH (11:11)
[2019-01-30] MEDS ORDERED: CALCIUM GLUCONATE 10% INJ 9.3 MEQ in SODIUM CHLORIDE 0.9% 100 ML 100 ML IV ONE (11:30)
--- NOTE | 2019-01-30 12:39 | Progress Note ---
DATE: 01/30/2019 Renal Progress Note SUBJECTIVE: Followed for end-stage renal disease, secondary to diabetic glomerulosclerosis and IgA nephropathy, dialysis dependent. The patient is . The patient is extubated now. She is somewhat responsive, however, she is on lethargic side. No current need for dialysis today. The patient is not in any respiratory distress at this time. OBJECTIVE: VITAL SIGNS: Have been noted, blood pressures have been in the high 90s to low 100s over 70s to 80s. Pulse in the one teens. Respirations are in the 20s. Afebrile. LUNGS: Minimal rales at the bases. CARDIOVASCULAR: S1 and S2. Tachycardia. ABDOMEN: Soft. Positive bowel sounds. Ascitic. EXTREMITIES: 1+ edema. LABORATORY DATA: Potassium 3.7, bicarb 28, sodium 138, BUN 29, creatinine is 2.5, calcium 7, phosphorus 2.5, magnesium 1.5. AST and ALT are 64 and 68 respectively. IMPRESSION AND PLAN: 1. End-stage renal disease. We will continue dialysis Monday, , Monday. Additional days if needed for ultrafiltration, for now no additional days required. We will likely plan to do dialysis again tomorrow. 2. Hypertension/hypotension. Continue midodrine and octreotide. The patient also received IV albumin, likely will have at baseline low blood pressure, secondary to probable hepatorenal syndrome as well. Continue to monitor closely. 3. Metabolic acidosis, has resolved now. 4. Hypophosphatemia, replaced. 5. Hypocalcemia. Replace with 2 g calcium gluconate and recheck level. 6. Liver cirrhosis. 7. Sepsis, secondary to fungemia, on micafungin, also receiving antibiotics. ID is managing the patient for this. PLAN: Would be as per GI recommendation. Thank you once again. Time spent on this note is about 25 minutes. Casey Caldwell MD /MODL /[id number]
--- NOTE | 2019-01-30 16:36 | NUR ---
Follow up Note RD Recommendation for Physician: -Appropriate diet regimen per Speech Therapy -If PO diet is unable to be initiated, continue Nepro @ 35 mL/hr and water flush per MD (provides 1512 kcal, 68 g protein, and 611 mL water/fluid) Plan of Care: RD following, monitoring for tolerance and adequacy . Nutrition reason for involvement: follow up Primary Diagnose(s): Ascites, liver cirrhosis PMH: Liver cirrhosis, HTN, T2DM, CKD stage 3, Anemia, GI: last recorded BM 01/29 Skin: no pressure ulcers Labs: (01/30/19) BUN 29, Creat. 2.54, Glu 131, Phos 2.5 (01/24/19) BUN 41, Creat 3.26, Glu 229, Phos 6.0 I/O: 1900/8010 Meds: (01/30/19) insulin regular, insulin glargine, protonix, meropenem, fentanyl, zofran, norepinephrine, NaCl, mannitol Ht:62.5 in Wt: 01/30: 190 lbs 01/24: 195lb BMI:34.8 kg/m2 IBW:112.5lb RD Assessment: (01/30/19) Follow up. On 01/26, pt was intubated due to respiratory distress and was transferred to the ICU. Tube feedings were started on 01/27 and pt was receiving Nepro @ 35 mL/hr. Pt was extubated and speech therapy has been consulted for swallow evaluation. Will continue to monitor. (01/24/19) Follow up. Attempted to speak to pt, but pt did not provide much information; therefore, information was obtained from chart. Pt is receiving dialysis and is on a renal diet. Per documentation, pt has been consuming 0-40% of meals since 01/21. Recommend Nepro BID. Weight has been stable per chart. Will continue to monitor. (01/19/2019) Chart reviewed. Labs and meds reviewed. Initial encounter with patient. Pt only able to eat small meals due to ascites. Pt with vomiting after she eats too much. Pt denies any difficulty chewing or swallowing. Current Diet: Tube feeding - Nepro @ 35 mL/hr Malnutrition Evaluation (01/30/2019) The patient does not meet criteria for a specified degree of malnutrition at this time. Will re-evaluate at follow-up as appropriate. Energy intake: Pt meeting energy needs with tube feeding Weight loss: No weight loss reported Fat loss: unable to evaluate Muscle loss: unable to evaluate Supporting Evidence: Fluid accumulation: +1 edema in extremities per MD note Functional Status: unable to evaluate Estimated Nutritional Needs: 6115-3632 calories/day (22-25 kcal/kg IBW) 61-77 g protein/day (1.2-1.5 g pro/kg IBW Diet Adequacy: Meeting calorie needs, Meeting protein needs with tube feeding Tolerance: Pt on tube feedings Diet Education Needs Assessment: Diet education not indicated at this time Nutrition Care Level: moderate due to tube feed initiation Nutrition Diagnosis: Swallowing difficulty related to acute respiratory failure as evidenced by need for enteral nutrition. Goal: Patient will meet 75-100% of estimated needs by follow up Progress: N/A Interventions: Tube feeding - Composition, Rate, Route, Collaboration with other providers Monitoring/Evaluation: Formula/Solution, Total energy intake, Total protein intake, Weight change Signed: Sudha Ford RD, LD
[2019-01-30] MEDS: DEXTROSE 5%/0.45% SOD CHL 1,000 ML IV SCH (17:44)
[2019-01-30] MEDS ORDERED: FENTANYL CITRATE IV PRN (19:00)
[2019-01-30] MEDS ORDERED: DEXTROSE 5% IV PRN (19:00)
--- NOTE | 2019-01-30 19:41 | Progress Note ---
DATE: 01/30/2019 SUBJECTIVE: I have been following her for decompensated cirrhosis with ascites. Full liver workup done without revealing any particular cause. So far, the only etiology we have is long-term use of diabetes medication and has no history of alcohol abuse. She had repeated paracenteses yesterday with large volume removed. Her ascitic fluid cytology still pending. Culture so far is negative on the ascitic fluid. The white cell count in the ascitic fluid is 279, total protein of ascitic fluid 2, albumin 1.3, and blood albumin 3.2, the gradient more than 1.1, so the etiology is still very similar to the previous paracentesis suggestive of cirrhosis less likely nephrotic and less likely cardiac. She made improvement since yesterday. She was extubated. She is awake and alert, responds to commands. I was able to communicate with her. She is still extremely septic. Her white cell count 32,000, hemoglobin 9.9, hematocrit 30, and platelets 45. Her liver function has improved today, AST down to 64, ALT down to 68. Most likely, she suffered from ischemic episode of liver during her severe sepsis few days ago. Her total bilirubin still 9, which is related to her sepsis. She has not been fed yet. Tomorrow, speech therapist is going to evaluate her for feeding. I instructed the nurse to not to give her any normal saline or any of her IVs in order not to contribute to worsening her ascites and tomorrow if her swallowing approved by the speech therapist, we will start her back on lactulose. In the mean time, she is still maintaining on Xifaxan and Protonix. Chiki Ibarra MD RD/MODL /[id number]
[2019-01-30] MEDS ORDERED: DEXTROSE 5% IV SCH (20:00)
[2019-01-30] MEDS ORDERED: MEROPENEM IV SCH (20:00)
[2019-01-30] MEDS ORDERED: NOREPINEPHRINE INJ 4MG/4ML 8 MG in DEXTROSE 5% 250ML 250 ML IV PRN (21:00)
[2019-01-30] MEDS: MEROPENEM 500MG/ NS 50ML 50 ML IV SCH (21:00)
[2019-01-30] MEDS ORDERED: NOREPINEPHRINE 8 MG/D5W 250 ML 250 ML IV PRN (21:15)
[2019-01-31] VITALS (27 sets, daily range): BP systolic 78–162; BP diastolic 49–112
[2019-01-31 05:03] LABS: BASOPHILS # (AUTO) 0.1 (0.0-0.1); BASOPHILS % 0.3 % (0.0-1.0); HEMATOCRIT 34.1 % (34.2-44.1); HEMOGLOBIN 10.9 g/dL (12.0-16.0); LYMPHOCYTES # (AUTO) 0.7 (1.0-3.2); LYMPHOCYTES % 2.4 % (18.0-39.1); MEAN CORPUSCULAR HEMOGLOBIN 29.5 pg (28-32); MEAN CORPUSCULAR VOLUME 92.4 fL (81-99); MONOCYTES % 3.5 % (4.4-11.3); NEUTROPHILS # (AUTO) 27.4 (2.1-6.9); NEUTROPHILS % 92.8 % (38.7-80.0); RED BLOOD COUNT 3.69 x10e6/uL (3.6-5.1); RED CELL DISTRIBUTION WIDTH 17.3 % (11.7-14.4)
[2019-01-31 05:04] LABS: PLATELET COUNT 34 x10e3/uL (140-360)
[2019-01-31 05:13] LABS: INR 1.73; PROTHROMBIN TIME 20.9 seconds (11.9-14.5)
[2019-01-31 05:33] LABS: ALBUMIN 2.8 g/dL (3.5-5.0); ANION GAP 17.2 mmol/L (8-16); CALCIUM 7.3 mg/dL (8.4-10.2); CREATININE, SERUM 3.48 mg/dL (0.57-1.11); MAGNESIUM 1.6 MG/DL (1.3-2.1); PHOSPHORUS 3.8 MG/DL (2.3-4.7); POTASSIUM 4.2 mmol/L (3.5-5.1)
[2019-01-31] MEDS: INSULIN REGULAR, HUMAN 100 UNIT/1 ML 3ML VIAL SQ SCH ×4 (06:00→18:00)
--- NOTE | 2019-01-31 06:23 | NUR ---
Pt c/o "having a hard time catching my breath". O2 sat 95-98% on 3L NC, RR 20-24. Crackles noted bilaterally. Dr. Ordoñez paged x 2, awaiting return call. Dr. Cook notified of critical platelet level. No new orders received.
[2019-01-31] MEDS: DEXTROSE 5%/0.45% SOD CHL 1,000 ML IV SCH (06:25)
--- NOTE | 2019-01-31 06:34 | NUR ---
Dr. Ordoñez returned call. Orders received for PRN nebs, Lasix x 1, CXR, and bipap PRN. Will notify oncoming RN and RT of new orders.
[2019-01-31] MEDS ORDERED: FUROSEMIDE INJ 10 MG/ML 2 ML VIAL IV ONE (06:45)
--- NOTE | 2019-01-31 06:47 | NUR ---
IM-progress note O/N no events IM- progress note O/N no events ROS; no f/c/s/MATTHEWS/cp/sob/back pain/skin rash/diarrhea v/s revd PE tired appearing;extubated atraumatic ns1s2 COARSE BREATH SOUNDS; REDUCED AIR MOVEMENT soft nd; mildly tender abdomen trace leg edema skin dry flat affect alert; mina labs/meds; revd A/P: 68yoF Ascites Cirrhosis ESRD Intractable N/V PLAN s/p paracentesis IV abx prophylactically Antiemetics SCD D/c planning CKD3 due to DM2; now with MELITA; Obesity BMI 35.3. check hba1c/lipids. 01/21 f/u studies; appreciate nephrology recs. 01/22 started on dialysis; renal bx pending; 01/23 Hepatorenal syndrome; s/p right renal bx; per GI may need liver bx. Iron deficiency anemia. 01/24 no change; HD per nephrology; 01/25 IgA nephropathy; SEpsis; Coagulopathy; Poor prognosis. 01/26 Poor prognosis- discussed extensively with daughter; Acute resp failure; Hepatic encephalopathy; continue supportive care; 01/27 supportive care. Bacteremia- abx; f/u cx; Septic Shock- IV abx and pressors as needed. Discussions of POC pending today; 01/28 low plts and low Hb- transfusion pending; d/w daughter by telephone and in person at bedside; she understands that prognosis is poor; She continues to discuss details with pt's and update him. Pt remains Full code. 01/29 Maureen glabrata Fungemia- on micafungin; LFTs continue to improve; receiving HD today, with plans for paracentesis today; Pt appears more alert today; cont current care; Vent weaning per pulm; d/w in detail with pt's daughter by telephone; time spent in patient care>35mins. 01/30 V.poor prognosis; T.bili 9.2; renal fn poor; Multiorgan dysfunction/failure. Remains on 45% O2 vent; more alert; had paracentesis with > 6L removed. d/w daughter by telephone am. 01/31 labs essentially unchanged, except T.bili increased to 13. supportive care. Extubated at 9am yesterday. d/w daughter by phone, PT consult; d/c planning to facility and HD outpt. cct>35mins. Leo Valera MD, PhD.
[2019-01-31] MEDS: IPRATROPIUM BROMIDE 0.02% 2.5 ML NEB NEB PRN ×3 (07:20→20:10)
[2019-01-31] MEDS: PANTOPRAZOLE 40 MG 10ML VIAL IV SCH ×2 (08:00→20:23)
[2019-01-31] MEDS: MIDODRINE HCL 5 MG TABLET PO SCH ×3 (08:00→15:00)
[2019-01-31] MEDS: BROMFED PO SCH ×4 (08:00→20:18)
[2019-01-31] MEDS: INSULIN GLARGINE 100 UNITS/ML VIAL SQ SCH (08:08)
[2019-01-31] MEDS: RIFAXIMIN 550 MG TABLET NG SCH ×2 (09:00→16:09)
--- NOTE | 2019-01-31 09:03 | Diagnostic Imaging Report ---
EXAMINATION: CHEST SINGLE (PORTABLE) INDICATION: Shortness of breath COMPARISON: Chest radiograph 01/30/2019 FINDINGS: LINES/TUBES:EKG leads overlie the chest. Nontunneled right IJ central venous catheter terminates at the proximal right atrium. Interval extubation and removal of enteric tube. LUNGS:The lung volumes are low. Patchy bibasilar opacities left greater than right. PLEURA:Possible trace pleural effusions. No pneumothorax. MEDIASTINUM:The cardiomediastinal silhouette appears unchanged in size and shape. BONES/SOFT TISSUES:No acute osseous injury. ABDOMEN:No free air under the diaphragm. IMPRESSION: Interval extubation and removal of enteric tube. Other lines and tubes as above. Low lung volumes and patchy bibasilar opacities left greater than right, more likely subsegmental atelectasis than superimposed aspiration or pneumonia. Signed by: Cora Blanc MD on 01/31/2019 9:00 AM
--- NOTE | 2019-01-31 09:38 | Progress Note ---
DATE: 01/30/2019 SUBJECTIVE: The patient is resting in bed. She is in no acute distress. No report of vomiting. No report of diarrhea. No overt medication reaction reported. OBJECTIVE: VITAL SIGNS: In the previous 24 hours, she had temperature of 99.2 degrees Fahrenheit. She has required vasopressor support. HEENT: She has no gross pallor. No obvious icterus. No oropharyngeal lesions. NECK: Supple. CHEST: Symmetric. Breath sounds are coarse in the lung rodriguez. HEART: Sounds are irregular. There is no new murmur. ABDOMEN: Soft. Bowel sounds are present. There is ascites. EXTREMITIES: There is no acute erythema of the extremities. LABORATORY DATA: Her white count is up to 32,000, hemoglobin 9.9, and platelet count 45,000. Serum creatinine 2.5 with dialysis. Cultures are being processed. IMPRESSION: She has sustained candidemia with positive blood cultures, January 25 through January 28. I suspect her IV access is infected. She has end-stage renal disease. She has cirrhosis with ascites. I suggest we change her IV access. Continue to monitor temperature, CBC, renal function. Continue her antibiotics. Continue other supportive care. MD CARLEEN Au/ALYSSAL /[id number]
--- NOTE | 2019-01-31 09:44 | Progress Note ---
DATE: 01/31/2019 SUBJECTIVE: The patient has been extubated. She is awake. She remains critically ill and she is responsive. No acute respiratory distress. She coughs intermittently. No dyspnea at rest. No report of vomiting or diarrhea. No overt medication reaction reported. Temperature in the past 24 hours up to 99.6 degrees Fahrenheit. She is off vasopressors. OBJECTIVE: VITAL SIGNS: Blood pressure currently 106/73, respiratory rate 24, pulse rate up to 115. HEENT: She has no gross pallor. No obvious icterus. No oropharyngeal lesions. NECK: Supple. CHEST: Symmetric. Breath sounds are coarse in the lung rodriguez. HEART: Sounds are irregular. There is no new murmur. ABDOMEN: Soft. There is mild nonfocal tenderness. Bowel sounds are present. EXTREMITIES: No acute erythema of the extremities. The right IJ line is in place. LABORATORY DATA: Her creatinine is 3.4. Her white count is 29.5, hemoglobin 10.9, platelet count of 34,000. Blood cultures are positive with yeast/Maureen glabrata from January 25, , and January 28. I suspect her IV access is infected. Peritoneal fluid from January 18 and January 29 show no growth. ASSESSMENT AND PLAN: She has end-stage renal disease. She has cirrhosis with ascites. I suggest her IV access needs to be changed as urgently as possible. A temporary dialysis access/IV access should be placed until the bloodstream infection clears before a permanent dialysis access can be placed. Continue to check serial blood cultures until the bloodstream infection has cleared. She may need an echocardiogram to evaluate for endocarditis. If feasible, she should get ophthalmologic evaluation in light of this sustained candidemia. I will discuss the patient with the primary physician. Riky Heredia MD ATF/MODL /[id number]
[2019-01-31] MEDS ORDERED: CALCIUM GLUCONATE 10% INJ 9.3 MEQ in SODIUM CHLORIDE 0.9% 100 ML 100 ML IV ONE (10:00)
[2019-01-31] MEDS ORDERED: SODIUM CHLORIDE 0.9% 250ML 500 ML IV PRN (10:00)
[2019-01-31] MEDS ORDERED: HEPARIN SOD (PORCINE) 1000 UNIT/ML SDV IV PRN (10:00)
--- NOTE | 2019-01-31 10:49 | NUR ---
ST NOTE: Pt having dialysis, RN wishes to defer BSE at this time to reduce risk of N&V, will return later today to check pt readiness. Handoff to MAHESH Savage
[2019-01-31] MEDS ORDERED: MICAFUNGIN SODIUM 100 ML IV SCH (11:00)
--- NOTE | 2019-01-31 11:00 | Progress Note ---
DATE: 01/31/2019 Renal Progress Note SUBJECTIVE: Followed for end-stage renal disease. Tolerating dialysis. The patient is having to have an SLED treatment done since blood pressure is on the low side. No current nausea, no vomiting. Some shortness of breath. OBJECTIVE: VITAL SIGNS: Have been noted. Blood pressure is 100/62, 113 pulse, and 96 O2 sats. The is patient about 3 L nasal cannula. LUNGS: Minimal rales at bases bilaterally. CARDIOVASCULAR: S1, S2. No rub. ABDOMEN: Soft. Positive bowel sounds. EXTREMITIES: 2 to 3+ edema. LABORATORY DATA: Have been reviewed. H and H are 10.9 and 34.1. Chemistries; potassium is 4.2, BUN is 41, creatinine is 3.5. IMPRESSION AND PLAN: 1. End-stage renal disease. Continue dialysis Monday, , Monday. Plan to do next dialysis again on Monday. 2. Hypotension. Continue on subcu octreotide. Continue midodrine. May consider adding IV albumin again as well since albumin is trending downward. The patient has likely component of hepatorenal syndrome, secondary to her liver cirrhosis. I will continue monitor closely. 3. Anemia. Following a stable H and H. We will continue to monitor. 4. Metabolic acidosis, has resolved now. 5. Mild hypocalcemia, replaced with 2 g calcium gluconate and also correcting dialysis. Casey Caldwell MD /MODL /[id number]
[2019-01-31] MEDS: ALBUMIN 25% 12.5GM 0.25 GM/ML BTL IV SCH ×2 (11:11→18:08)
--- NOTE | 2019-01-31 12:09 | NUR ---
WOUND CARE SCREENING 68 YO FEMALE CRYSTAL 12 MODERATE PUP AND ALTERNATING PRESSURE MATTRESS NO WOUNDS OR SKIN BREAKDOWN NOTED UPON ASSESSMENT Addendum: 01/31/19 at 1213 by Akil Vela RN Amended: Links added.
--- NOTE | 2019-01-31 14:51 | NUR ---
Order received for LTAC evaluation. Spoke to Daughter Kayla [phone] about new plan of care. Informed her of ICU LOC there. She verbalized understanding, however she would like to look for a place closer to her home in the [facility]. She would also like to speak to her father about the decision. Provided CM's phone number and Kayla to call CM to discuss closer facilities and to give choice.
[2019-01-31] MEDS: OCTREOTIDE ACETATE 0.1 MG/ML 100MCG AMP SQ SCH ×2 (14:59→22:36)
--- NOTE | 2019-01-31 16:04 | NUR ---
Kayla called back, did give her options of LTACs, one in [place], and in the [facility]. Kayla states she would eventually like a liver specialist to see her mother and is inquiring if that would be possible if she was in the LTAC in the [facility]. Call placed to Jennifer Navarrete who states she will have an answer tomorrow. Notified Kayla of this and she verbalized understanding.
--- NOTE | 2019-01-31 18:08 | NUR ---
Per Dr. Vijay Jackson Trialysis catheter needs to be removed due because of bacteremia. Per Dr. Caldwell orders given to remove trialysis catheter and replace with a new one (not a tunneled catheter due to bacteremia). Per Dr. Fleming and Dr. Caldwell Claudio catheter ordered to be removed. ordered calcium replacement. Telephone consent done with primary RN and private banker and patient's daughter Kayla because patient is not fully oriented at this time. Dialysis done today over time period of 6 hours, 400ml's removed. Patient sating in low 90's on NC, Dr. Mathias informed and patient placed on Vapotherm 40L at 50%. Per Dr. Ibarra GI specialist Dr. Mace at [facility] willing to accept patient at this time. Dr. Valera and Dr. Ibarra spoke on the phone and discussed possible transfer. Dr. Valera in agreement with Dr. Ibarra to transfer. Family at bedside advocating for transfer to [facility] [place]. Order placed for case management to initiate transfer. Speech and PT came by during dialysis and stated they will see patient first thing tomorrow because dialysis is 6 hours long today (Meds given late due to dialysis). Dr. Caldwell notified of patient's plans to transfer [facility]. Will continue to monitor the patient.
--- NOTE | 2019-01-31 18:26 | NUR ---
IR unable to exchange dialysis access due to dialysis at bedside for 6 hours.
[2019-01-31] MEDS: DAPTOMYCIN 500mg 10ML 500 MG in SODIUM CHLORIDE 0.9% 100 ML IV SCH (20:20)
--- NOTE | 2019-01-31 20:44 | Progress Note ---
DATE: 01/31/2019 SUBJECTIVE: I had been following Ms. Guerrier with decompensated cirrhosis and ascites. She was admitted with abnormal renal function, had paracentesis twice each time the grading of her ascitic fluid is over 1.1 with low total protein. She had kidney biopsy, which is suggestive of diabetic nephropathy and a top of IgA nephropathy. Of course, if her kidney function was normal prior to admission, the deterioration of her kidney function could be related to hepatorenal. She took a turn to the worse recently when she become septic, found to have a Maureen infection. She was intubated and then extubated today. She is still recovering. She is awake, alert, responds to command, appear very ill and sick. She is from GI standpoint maintained on Zyvox and Protonix. We are waiting on speech therapy evaluation to start feeding her. Her white cell count today is 29,000, hemoglobin 10, hematocrit 34 and platelet only 34. PT is 20. Her liver enzymes are down to ALT 55, AST 48, total bilirubin is still 13 with albumin 2.8. I spoke with Dr. Andino from [facility], he is currently excepting the patient for transfer if the primary care and the family are willing to transfer her for high level of care especially because of the acute liver failure, but beside this nothing to add from GI standpoint. Chiki Ibarra MD RD/DAIJA /[id number]
[2019-01-31] MEDS ORDERED: DEXTROSE 5% IV SCH (21:00)
[2019-01-31] MEDS ORDERED: MEROPENEM IV SCH (21:00)
--- NOTE | 2019-01-31 22:06 | NUR ---
shoe planner and visiting housekeeper aware of bed assignment and transfer to [facility] [place]. Report given to Madeleine ARAGON at [facility] at [phone] ([phone]). Daughter Kayla Perez authorized transfer and has been updated on patient's room and phone number to unit per daughter's request. shoe plannerValentina, assembled transfer packet. Jolly, RT, at bedside with EMS to discuss respiratory orders. RT switched patient from Vapotherm to NRB for transport, O2 sat 97% on NRB.
--- NOTE | 2019-01-31 23:01 | NUR ---
Patient escorted off the unit by EMS personnel at [id number] via stretcher. No belongings noted. Kayla, daughter, said she took all belongings earlier today. No acute distress noted.
[2019-02-04] MEDS ORDERED: PNEUMOCOCCAL VACCINE POLYVALENT 23 MCG/0.5 ML VIAL IM SCH (20:00)
== END 2019-01-31 22:45 | disposition short-term general hospital (02) | DRG 441 ==
LOC: ER 10:51 → ERHOLD 14:35 → MED/SURG2 15:45 → OBSVTOIN 01-19 13:09 → MED/SURG 01-19 18:25 → ICU 01-21 15:39 → MED/SURG3 01-23 14:08 → ICU 01-26 00:45
PROVIDERS: ADMIT Internal Medicine; ATTEND Internal Medicine
PROC: 0W9G3ZZ Drainage of Peritoneal Cavity, Percutaneous Approach (ICD-10-PCS; 2019-01-18)
PROC: 02HV33Z Insertion of Infusion Device into Superior Vena Cava, Percutaneous Approach (ICD-10-PCS; 2019-01-21)
PROC: 5A1D70Z Performance of Urinary Filtration, Intermittent, Less than 6 Hours Per Day (ICD-10-PCS; 2019-01-21)
PROC: 0TB03ZX Excision of Right Kidney, Percutaneous Approach, Diagnostic (ICD-10-PCS; principal; 2019-01-22)
PROC: 5A1955Z Respiratory Ventilation, Greater than 96 Consecutive Hours (ICD-10-PCS; 2019-01-26)
PROC: 0BH17EZ Insertion of Endotracheal Airway into Trachea, Via Natural or Artificial Opening (ICD-10-PCS; 2019-01-26)
PROC: 3E043XZ Introduction of Vasopressor into Central Vein, Percutaneous Approach (ICD-10-PCS; 2019-01-26)
PROC: 5A1D80Z Performance of Urinary Filtration, Prolonged Intermittent, 6-18 hours Per Day (ICD-10-PCS; 2019-01-26)
PROC: 30243R1 Transfusion of Nonautologous Platelets into Central Vein, Percutaneous Approach (ICD-10-PCS; 2019-01-28)
PROC: 30243N1 Transfusion of Nonautologous Red Blood Cells into Central Vein, Percutaneous Approach (ICD-10-PCS; 2019-01-28)
PROC: 0W9G3ZZ Drainage of Peritoneal Cavity, Percutaneous Approach (ICD-10-PCS; 2019-01-29)
DX: K76.7 Hepatorenal syndrome (principal); K72.00 Acute and subacute hepatic failure without coma; R65.21 Severe sepsis with septic shock; B37.7 Candidal sepsis; J96.00 Acute respiratory failure, unspecified whether with hypoxia or hypercapnia; N18.6 End stage renal disease; N17.0 Acute kidney failure with tubular necrosis; E87.2 Acidosis; N39.0 Urinary tract infection, site not specified; I12.0 Hypertensive chronic kidney disease with stage 5 chronic kidney disease or end stage renal disease; R18.8 Other ascites; K76.6 Portal hypertension; K71.7 Toxic liver disease with fibrosis and cirrhosis of liver; D69.6 Thrombocytopenia, unspecified; E83.39 Other disorders of phosphorus metabolism; E83.51 Hypocalcemia; N81.4 Uterovaginal prolapse, unspecified; E87.6 Hypokalemia; N39.46 Mixed incontinence; E66.9 Obesity, unspecified; N81.6 Rectocele; N36.41 Hypermobility of urethra; N95.2 Postmenopausal atrophic vaginitis; Z68.35 Body mass index [BMI] 35.0-35.9, adult; E11.22 Type 2 diabetes mellitus with diabetic chronic kidney disease; T38.3X5A Adverse effect of insulin and oral hypoglycemic [antidiabetic] drugs, initial encounter; D63.1 Anemia in chronic kidney disease; E11.21 Type 2 diabetes mellitus with diabetic nephropathy; Z91.013 Allergy to seafood; D50.9 Iron deficiency anemia, unspecified
CPT/HCPCS: 36415; 36556; 36600; 49083; 50200; 70450; 71045; 71250; 74018; 74176; 74470; 76700; 76705; 76937; 76942; 77001; 80048; 80053; 80061; 80076; 81001; 81015; 82040; 82103; 82105; 82140; 82150; 82248; 82390; 82570; 82728; 82784; 82805; 82948; 83036; 83516; 83540; 83605; 83615; 83735; 84100; 84155; 84156; 84157; 84165; 84166; 84436; 84443; 84466; 84479; 85025; 85049; 85384; 85610; 85730; 86021; 86160; 86162; 86225; 86255; 86256; 86376; 86850; 86900; 86920; 87040; 87070; 87071; 87086; 87186; 87205; 87390; 88112; 88305; 89051; 90962; 93005; 93975; 94002; 94003; 94640; 96372; 97139; 99152; 99284; C1729; G0378; G0433; G0435; J0610; J0696; J1170; J1644; J1815; J1817; J1940; J2001; J2150; J2185; J2248; J2250; J2270; J2354; J2405; J2543; J2550; J2930; J3010; J3370; J3430; J3480; J7030; J7040; J7050; J7070; J7512; P9016; P9034; P9047